=== PATIENT | male | born 1950 | race Hispanic/Latino ===

== ENCOUNTER 2016-10-06 12:54 | Emergency (ER) | payer MEDICARE ==
[2016-10-06 12:55] VITALS: BMI 25.5
[2016-10-06 13:02] VITALS: RESP 16
--- NOTE | 2016-10-06 13:43 | ED PDOC ---
HPI: Psych/Substance Abuse Time Seen by Provider: 10/06/16 13:33 Chief Complaint (Nursing): Substance Abuse Past Medical History Vital Signs: Last Vital Signs Temp 95.5 F L 10/06/16 12:58 Pulse 88 10/06/16 12:58 Resp 16 10/06/16 12:58 BP Pulse Ox 92 L 10/06/16 12:58 - Medical History PMH: Back Problems, Emphysema, Hyperlipidemia - Surgical History Surgical History: Cholecystectomy - Family History Family History: States: Unknown Family Hx - Home Medications Home Medications: Ambulatory Orders Medication Instructions Recorded Acetaminophen/Butalbital/Caf 1 tab PO Q6H PRN 09/01/15 [Fioricet] Cyclobenzaprine [Flexeril] 5 mg PO DAILY 09/01/15 Oxycodone HCl [Oxycontin] 60 mg PO HS 09/01/15 Oxycodone HCl [Oxycontin] 120 mg PO QAM 09/01/15 Oxycodone HCl/Acetaminophen 1 tab PO Q8H 09/01/15 [Endocet 7.5-325 mg Tablet] Pregabalin [Lyrica] 75 mg PO BID 09/01/15 - Allergies Allergies/Adverse Reactions: Allergies Allergy/AdvReac Type Severity Reaction Status Date / Time No Known Allergies Allergy Verified 09/01/15 13:06 - ECG O2 Sat by Pulse Oximetry: 92
--- NOTE | 2016-10-06 14:01 | ED PDOC ---
HPI: Psych/Substance Abuse Chief Complaint (Provider): opioid abuse ED Caveat: Other (A&O) History Per: Patient, Family History/Exam Limitations: no limitations Onset/Duration Of Symptoms: Hrs, Sudden Onset Current Symptoms Are (Timing): Gone Now Suicide/Self Injury Attempted (Context): None Modifying Factor(s): Narcotics Severity: Mild Associated Symptoms: denies: Anxiety, Agitation, Depression, Suicidal Thoughts, Suicidal Plan Involuntary Hold By: None Additional History Per: Patient, Additional Complaint(s): 66 y/o M with known h/o prescription drug abuse presenting s/p taking 3 tabs of Oxycontin 60 mg and 2 tabs of percocet 7.5 mg today[address] Patient sees Dr. Ellis for pain management due to chronic back pain, states getting his prescriptions refilled this AM and took above mentioned medication due to increased pain today. Patient had LOC, witnessed by son, no seizures, incontinence, head trauma reported, EMS was called and patient receivedn 4 mg narcan in the field. Mental status was A&O x 3 after narcan administration, brought to [facility] for evaluation. Currently A&O x 3, denies MEYER, syncop, vision changes, palpitations, cp, sob, abd pain, bowel incontinence, focal weakness or parasthesias. <Jose Paredes F - Last Filed: 10/06/16 16:57> <Titi Penn Y - Last Filed: 10/07/16 12:35> Time Seen by Provider: 10/06/16 13:00 Chief Complaint (Nursing): Substance Abuse Supervising Attending Note - Supervising Attending Note The Documented history was done by the: Physician Auto Seat Cover Installer The documented physical exam was done by the: Physician Auto Seat Cover Installer The documented procedures were done by the: Physician Auto Seat Cover Installer - Attestation: I have personally seen and examined this patient.: Yes I have fully participated in the care of the patient.: Yes I have reviewed all pertinent clinical information, including history, physical exam and plan: Yes - Notes: Notes:: pt here for accidntal overdose of pain medicine. labs reviewed cxr shows ?rib fractures new vs old however pt states has old fractures and no new pain or new falls pt alert and oriented while in the ER vital stable pt feels back to baseline to go home with posiion control contacted they said as long as stable during ER stay and labs ok pt stable for dc. <Titi Penn Y - Last Filed: 10/07/16 12:35> Past Medical History Vital Signs: Last Vital Signs Temp 95.5 F L 10/06/16 12:58 Pulse 88 10/06/16 12:58 Resp 16 10/06/16 12:58 BP Pulse Ox 92 L 10/06/16 12:58 - Medical History PMH: Back Problems, Emphysema, Hyperlipidemia - Surgical History Surgical History: Cholecystectomy - Family History Family History: States: Unknown Family Hx - Living Arrangements Living Arrangements: With Family - Social History Current smoker - smoking cessation education provided: Yes (2 PPD since age 26) <Jose Paredes F - Last Filed: 10/06/16 16:57> Vital Signs: Last Vital Signs Temp 97.9 F 10/06/16 17:25 Pulse 117 H 10/06/16 17:25 Resp 16 10/06/16 17:25 BP 108/68 10/06/16 17:25 Pulse Ox 99 10/06/16 17:25 <Titi Penn Y - Last Filed: 10/07/16 12:35> - Home Medications Home Medications: Ambulatory Orders Medication Instructions Recorded Acetaminophen/Butalbital/Caf 1 tab PO Q6H PRN 09/01/15 [Fioricet] Cyclobenzaprine [Flexeril] 5 mg PO DAILY 09/01/15 Oxycodone HCl [Oxycontin] 60 mg PO HS 09/01/15 Oxycodone HCl [Oxycontin] 120 mg PO QAM 09/01/15 Oxycodone HCl/Acetaminophen 1 tab PO Q8H 09/01/15 [Endocet 7.5-325 mg Tablet] Pregabalin [Lyrica] 75 mg PO BID 09/01/15 - Allergies Allergies/Adverse Reactions: Allergies Allergy/AdvReac Type Severity Reaction Status Date / Time No Known Allergies Allergy Verified 09/01/15 13:06 Review of Systems ROS Statement: Except As Marked, All Systems Reviewed And Found Negative Cardiovascular: Negative for: Chest Pain Gastrointestinal: Negative for: Nausea, Vomiting, Abdominal Pain Genitourinary Male: Negative for: Dysuria, Incontinence, Hematuria Skin: Negative for: Rash, Bruising Neurological: Negative for: Weakness, Numbness, Incoordination, Change in Speech , Confusion, Seizures, Altered Mental Status, Headache, Dizziness Psych: Negative for: Anxiety, Depression <StaciemarylinJose - Last Filed: 10/06/16 16:57> Physical Exam - Physical Exam Appears: Positive for: Non-toxic Head Exam: Positive for: ATRAUMATIC, NORMOCEPHALIC Skin: Positive for: Warm, Dry Eye Exam: Positive for: EOMI, PERRL ENT: Negative for: Nasal Congestion, Pharyngeal Erythema, Tonsillar Exudate Neck: Positive for: Painless ROM, Supple Respiratory: Negative for: Accessory Muscle Use, Crackles, Rales, Rhonchi, Respiratory Distress Gastrointestinal/Abdominal: Positive for: Soft. Negative for: Tenderness, Guarding Neurologic/Psych: Positive for: Alert, transmitter engineer II-XII, Oriented, Gait (normal ). Negative for: Motor/Sensory Deficits, Facial Droop <StaciemarylinMicaha Mehdi - Last Filed: 10/06/16 16:57> - Laboratory Results Result Diagrams: 10/06/16 14:39 10/06/16 14:39 - ECG O2 Sat by Pulse Oximetry: 92 - Progress ED Course And Treament: Opioid Abuse ECG CXR UA, CBC, CMP,coags, UDS, ETOH, salycilate, acetominophen levels reassess <StaciemarylinJose - Last Filed: 10/06/16 16:57> - Laboratory Results Result Diagrams: 10/06/16 14:39 10/06/16 14:39 <Titi Penn Y - Last Filed: 10/07/16 12:35> Disposition - Patient ED Disposition Is Patient to be Admitted: No - Disposition Disposition: Routine/Home Disposition Time: 16:58 <StacieMicah coulterisabelle Harding - Last Filed: 10/06/16 16:57> - Patient ED Disposition Is Patient to be Admitted: No Counseled Patient/Family Regarding: Studies Performed, Diagnosis, Need For Followup - Disposition Disposition: Routine/Home Disposition Time: 16:00 <Titi Penn - Last Filed: 10/07/16 12:35> - Clinical Impression Clinical Impression: Opiate abuse, episodic - Disposition Condition: GOOD Additional Instructions: follow up with your pain management doctor. take your pain medication exactly as prescribed. return to the ED with any worsening or concerning symptoms. Instructions: Chronic Pain (ED)
--- NOTE | 2016-10-06 14:46 | RAD ---
HISTORY: cough, 2 ppd smoker COMPARISON: Chest x-ray performed 09/01/15 TECHNIQUE: Chest PA and lateral FINDINGS: LUNGS: Hyperinflation may be seen in the setting of COPD. No focal consolidation. Please note that chest x-ray has limited sensitivity for the detection of pulmonary masses. PLEURA: No significant pleural effusion identified. No definite pneumothorax . CARDIOVASCULAR: The cardiomediastinal silhouette appears within normal limits of size. OSSEOUS STRUCTURES: Right 8th and 9th rib fracture deformities. VISUALIZED UPPER ABDOMEN: Unremarkable. OTHER FINDINGS: None. IMPRESSION: Hyperinflation may be seen in the setting of COPD. Age indeterminate right 8th and 9th rib fracture deformities new since 09/01/15 ; correlate with physical exam to exclude point tenderness.
[2016-10-06 14:53] LABS: HEMATOCRIT 40.5 % (35.0-51.0); MEAN CELL VOLUME 92.3 fl (80.0-94.0); MEAN CORPUSCULAR HEMOGLOBIN 31.1 pg (27.0-31.0); MEAN CORPUSCULAR HGB CONC 33.7 g/dL (33.0-37.0); RED CELL DISTRIBUTION WIDTH 14.4 % (11.5-14.5); WHITE BLOOD COUNT 10.2 K/uL (4.8-10.8)
[2016-10-06 15:08] LABS: CHLORIDE 108 mmol/L (98-107); SODIUM 144 mmol/l (132-148)
[2016-10-06 15:11] LABS: ALB/GLOB RATIO 1.5 (1.0-2.1); ALKALINE PHOSPHATASE 76 U/L (38-126); AST/SGOT 18 U/L (17-59); BILIRUBIN,TOTAL 0.4 mg/dl (0.2-1.3); BLOOD UREA NITROGEN 14 mg/dl (9-20); CARBON DIOXIDE 24 mmol/L (22-30); GFR AFRICAN-AMERICAN > 60; TOTAL PROTEIN 7.1 G/DL (6.3-8.2)
[2016-10-06 15:12] LABS: ALT/SGPT 23 U/L (21-72); CALCIUM 8.9 mg/dL (8.4-10.2); GLUCOSE,RANDOM 76 mg/dL (75-110)
[2016-10-06 16:29] LABS: RBC URINE 6 /hpf (0-3); URINE BILIRUBIN NEGATIVE (NEGATIVE); URINE BLOOD NEGATIVE (NEGATIVE); URINE COLOR YELLOW (YELLOW); URINE GLUCOSE (UA) NEG (Normal); URINE KETONE NEGATIVE (NEGATIVE); URINE LEUKOCYTE ESTERASE NEG Leu/uL (Negative); URINE PROTEIN 30 mg/dL (NEGATIVE); URINE UROBILINOGEN 0.2-1.0 mg/dL (0.2-1.0); WBC URINE 3 /hpf (0-5)
[2016-10-06 16:33] LABS: PARTIAL THROMBOPLASTIN TIME 27.5 SECONDS (23.3-32.5)
[2016-10-06 17:25] VITALS: BP 108/68; PULSE 117; TEMP 97.9; O2SAT 99
== END 2016-10-06 17:31 | disposition home or self-care (01) ==
LOC: H.ER 12:54
DX: F11.10 Opioid abuse, uncomplicated (principal)
CPT/HCPCS: 71020; 80053; 81003; 85027; 85610; 85730; 99283; G0480

== ENCOUNTER 2017-01-07 20:58 | Inpatient (IN) | payer MEDICARE ==
[2017-01-07 21:07] VITALS: BMI 21.5
--- NOTE | 2017-01-07 21:15 | ED PDOC ---
HPI:STROKE - Time Time: 09:14 - Historian Historian: Family - Chief Complaint Chief Complaint: Slurred speech, Mental status change, Confusion - Onset Date: 01/07/17 Time: 16:00 Onset: Hours (5) - Timing Timing: Improved - Location Locate right:: Face, Upper extremity, Lower extremity - Radiation Radiation: None - Severity of pain Maximum severity:: Moderate Severity Current: Mild - Associated Symptoms Associated symptoms:: Seizure - Exacerbated by Exacerbated by:: Nothing - Relieved by Relieved by:: Nothing - TPA Positive for Contraindication: Yes Reason tPA is not being Administered: seizure activity and onset is out of window for TPA. - Notes: Notes:: Pt BIBA for possible stroke this afternoon. Per family pt was doing well all day. Pt took his pain medications including percocet, oxycontin and flexeril. HE was last seen normal around 1600 today. witnessed episode when he had right sided seizure and fell on the floor uncoscious and later was incogruent. Pt is unable to give history due to confusion. Pt has chronic back pain and take pain medications given by pain management Dr Ellis. NIHSS Stroke Scale - Date/Time Evaluation Performed Date Performed: 01/07/17 Time Performed: 09:15 When Was NIHSS Performed: Baseline - How Severe is the Stroke Level of Consciousness: 0=Alert LOC to Questions: 2=Neither correct LOC to commands: 0=Obeys both correctly Best Gaze: 0=Normal Visual: 0=No visual loss Facial: 0=Normal Motor Arm - Left: 0=No drift Motor Arm - Right: 0=No drift Motor Leg - Left: 0=No drift Motor Leg - Right: 0=No drift Limb Ataxia: 0=Absent Sensory: 0=Normal Best Language: 1=Mild to moderate aphasia Dysarthia: 0=Normal articulation Extinction & Inattention (Neglect): 0=Normal, no object Score: 3 rTPA Inclusion/Exclusion - Refusal of Treatment Patient Refused Treatment: No - Inclusion Criteria for Altepase Patient is 18 years or Older: Yes The Clinical Diagnosis of Ischemic Stroke That is Causing a Potentially Disabling Neurological Deficit: No Time of Onset is Well Established to be Less Than 270 Minute Before Treatment Would Begin: No Risk/Benefit Discussed With Patient/Family Member Present: No - Warning to TPA With Conditions Following Conditions Weighed Against Anticipated Benefit: Yes Condition: Seizure at Onset of Stroke Past Medical History Reviewed: Historical Data, Nursing Documentation, Vital Signs - Medical History PMH: Back Problems, Emphysema, Hyperlipidemia - Surgical History Surgical History: Cholecystectomy - Family History Family History: States: Unknown Family Hx - Home Medications Home Medications: Ambulatory Orders Medication Instructions Recorded Cyclobenzaprine [Flexeril] 5 mg PO DAILY 09/01/15 Oxycodone HCl/Acetaminophen 1 tab PO Q8H 09/01/15 [Endocet 7.5-325 mg Tablet] - Allergies Allergies/Adverse Reactions: Allergies Allergy/AdvReac Type Severity Reaction Status Date / Time No Known Allergies Allergy Verified 01/07/17 21:07 Review of Systems ROS Statement: Except As Marked, All Systems Reviewed And Found Negative Neurological: Positive for: Confusion, Seizures Physical Exam - Reviewed Nursing Documentation Reviewed: Yes Vital Signs Reviewed: Yes - Physical Exam Appears: Positive for: Non-toxic, No Acute Distress Head Exam: Positive for: ATRAUMATIC, NORMAL INSPECTION Skin: Positive for: Warm, Dry Eye Exam: Positive for: EOMI, PERRL Neck: Positive for: Normal Cardiovascular/Chest: Positive for: Regular Rate, Rhythm, Tachycardia Respiratory: Positive for: Normal Breath Sounds. Negative for: Rales, Wheezing , Respiratory Distress Gastrointestinal/Abdominal: Positive for: Soft. Negative for: Tenderness Extremity: Positive for: Normal ROM Neurologic/Psych: Positive for: Alert, dukey rider II-XII (intact), Oriented (x2), Aphasia (mild). Negative for: Motor/Sensory Deficits, Facial Droop - Laboratory Results Result Diagrams: 01/07/17 21:55 01/07/17 21:55 - Core Measure Core Measure Indicators: Code Stroke - Critical Care Total Time (In Min): 60 Medical Decision Making Medical Decision Makin.32 pm EXAM: CT Head Without Intravenous Contrast CLINICAL HISTORY: 66 years old, male; Signs and symptoms; Other: Code stroke TECHNIQUE: Axial computed tomography images of the head/brain without intravenous contrast. This CT exam was performed using one or more of the following dose reduction techniques: automated exposure control, adjustment of the mA and/or kV according to patient size, and/or use of iterative reconstruction technique. Coronal and sagittal reformatted images were created and reviewed. COMPARISON: CT - HEAD W/O CONTRAST 09/01/2015 2:34:43 PM FINDINGS: Brain: Minimal atrophy. No intracranial hemorrhage. No mass. No definite edema. Ventricles: No hydrocephalus. Bones/joints: No acute fracture. Soft tissues: Unremarkable. Sinuses: No acute sinusitis. Mastoid air cells: No mastoid effusion. Orbits: Unremarkable as visualized. IMPRESSION: 1. No definite territorial infarction. Acute infarction may be CT occult within first 24 hours. If focal deficit persists, consider followup CT or MRI for further evaluation. 2. Incidental/non-acute findings are described above. Thank you for allowing us to participate in the care of your patient. Dictated and Authenticated by: Kimo Ayers MD 01/07/2017 9:32 PM Eastern Time ([place] & [place]) 21.[address] Li thinks it is likely seizure and last was seen normal 5 hours ago therefore patient is not a TPA candidate. Recommends ativan and MRI. Per patients PCP is Dr Aly. Disposition - Clinical Impression Clinical Impression: Seizure, Altered mental state, Stroke - Patient ED Disposition Is Patient to be Admitted: Yes Discussed With DrMindy: Ernesto Velasco Doctor Will See Patient In The: Hospital Counseled Patient/Family Regarding: Studies Performed, Diagnosis - Disposition Disposition: Routine/Home Disposition Time: 23:32 Condition: GOOD - Pt Status Changed To: Hospital Disposition Of: Inpatient - Admit Certification Admit to Inpatient:: After my assessment, the patient will require hospitalization for at least two midnights. This is because of the severity of symptoms shown, intensity of services needed, and/or the medical risk in this patient being treated as an outpatient. - POA Present On Arrival: None Core Measure Indicators: Code Stroke
--- NOTE | 2017-01-07 21:32 | CT ---
EXAM: CT Head Without Intravenous Contrast CLINICAL HISTORY: 66 years old, male; Signs and symptoms; Other: Code stroke TECHNIQUE: Axial computed tomography images of the head/brain without intravenous contrast. This CT exam was performed using one or more of the following dose reduction techniques: automated exposure control, adjustment of the mA and/or kV according to patient size, and/or use of iterative reconstruction technique. Coronal and sagittal reformatted images were created and reviewed. COMPARISON: CT - HEAD W/O CONTRAST 09/01/2015 2:34:43 PM FINDINGS: Brain: Minimal atrophy. No intracranial hemorrhage. No mass. No definite edema. Ventricles: No hydrocephalus. Bones/joints: No acute fracture. Soft tissues: Unremarkable. Sinuses: No acute sinusitis. Mastoid air cells: No mastoid effusion. Orbits: Unremarkable as visualized. IMPRESSION: 1. No definite territorial infarction. Acute infarction may be CT occult within first 24 hours. If focal deficit persists, consider followup CT or MRI for further evaluation. 2. Incidental/non-acute findings are described above.
[2017-01-07 22:12] LABS: ALB/GLOB RATIO 1.6 (1.0-2.1); ALBUMIN 4.6 g/dL (3.5-5.0); ALT/SGPT 34 U/L (21-72); AST/SGOT 18 U/L (17-59); BLOOD UREA NITROGEN 16 mg/dl (9-20); CALCIUM 10.1 mg/dL (8.4-10.2); GFR AFRICAN-AMERICAN > 60; GFR NON-AFRICAN AMERICAN > 60; HDL CHOLESTEROL 45 MG/DL (30-70)
[2017-01-07 22:22] LABS: LDL CHOLESTEROL 134 mg/dL (0-129)
[2017-01-07 22:24] LABS: BASO # 0.1 K/uL (0.0-0.2); BASO % 0.9 % (0.0-2.0); EOS % 0.2 % (0.0-4.0); LYMPH # 2.2 K/uL (1.0-4.3); LYMPH % 21.9 % (20.0-40.0); MEAN CORPUSCULAR HEMOGLOBIN 31.2 pg (27.0-31.0); MEAN CORPUSCULAR HGB CONC 34.3 g/dL (33.0-37.0); MEAN PLATELET VOLUME 8.5 fl (7.2-11.7); MONO # 0.8 K/uL (0.0-0.8); MONO % 8.1 % (0.0-10.0); NEUT # 6.9 K/uL (1.8-7.0); NEUT % 68.9 % (50.0-75.0); NRBC % 0.2 % (0.0-0.0); RBC 5.13 Mil/uL (4.40-5.90); RED CELL DISTRIBUTION WIDTH 14.2 % (11.5-14.5)
[2017-01-07 22:29] LABS: INR 1.3 (0.9-1.2); PARTIAL THROMBOPLASTIN TIME 31.4 Seconds (25.6-37.1); PROTHROMBIN TIME 14.3 Seconds (9.8-13.1)
[2017-01-07] MEDS ORDERED: Multivitamin (MVI) 10 ML, Folic Acid 1 MG, Thiamine 100 MG in Dextrose 5%/0.45% NS 1,00... IV ONE (23:21)
[2017-01-07] MEDS ORDERED: Sodium Chloride 0.9% 1,000 ML IV STA (23:55)
[2017-01-08 02:16] LABS: BARBITURATES, UR NEGATIVE (NEGATIVE)
[2017-01-08 02:17] LABS: BENZODIAZEPINES, UR NEGATIVE (NEGATIVE); OPIATES, UR NEGATIVE (NEGATIVE); PHENCYCLIDINE, UR NEGATIVE (NEGATIVE)
[2017-01-08] MEDS ORDERED: Oxycodone/Acetaminophen 5/325 mg Tab PO PRN (10:28)
[2017-01-08] MEDS ORDERED: OXYCODONE HCL PO SCH (10:30)
[2017-01-08] MEDS ORDERED: ACETAMINOPHEN PO SCH (10:30)
--- NOTE | 2017-01-08 13:03 | CP.PCM.CON ---
History of Present Illness - History of Present Illness History of Present Illness: Mr. Cardozo is a 66-year-old man with a prior history of drug abuse and on several opiates and muscle relaxants who was witnessed having a seizure with subsequent confusion and some focal weakness. Now he is back to baseline and does not have any facial droop, focal weakness, sensory changes or difficulty with ambulation. He does not full remember what transpired, but he is compliant with the exam and conversant with normal orientation. Review of Systems - Review of Systems All systems: reviewed and no additional remarkable complaints except Past Patient History - Past Medical History & Family History Past Medical History?: Yes - Past Social History Smoking Status: Heavy Smoker > 10 Cigarettes Daily - PULMONARY Hx Emphysema: Yes - MUSCULOSKELETAL/RHEUMATOLOGICAL Hx Falls: No - PSYCHIATRIC Hx Substance Use: Yes - SURGICAL HISTORY Hx Cholecystectomy: Yes - ANESTHESIA Hx Anesthesia: Yes Hx Anesthesia Reactions: No Meds Allergies/Adverse Reactions: Allergies Allergy/AdvReac Type Severity Reaction Status Date / Time No Known Allergies Allergy Verified 01/07/17 21:07 - Medications Medications: Current Medications Cyclobenzaprine HCl (Flexeril) 5 mg PO DAILY [facility] Last Admin: 01/08/17 12:32 Dose: 5 mg Enoxaparin Sodium (Lovenox) 40 mg SC DAILY [facility] PRN Reason: Protocol Lorazepam (Ativan) 0.5 mg IVP Q6 PRN PRN Reason: Agitation Nicotine (Nicoderm Cq) 1 patch TD DAILY [facility] Last Admin: 01/08/17 08:20 Dose: 1 patch Oxycodone/Acetaminophen (Percocet 5/325 Mg Tab) 1 tab PO Q6 PRN PRN Reason: Pain, severe (8-10) Stop: 01/11/17 10:29 Physical Exam - Constitutional Appears: Well - Head Exam Head Exam: ATRAUMATIC, NORMAL INSPECTION, NORMOCEPHALIC - Eye Exam Eye Exam: EOMI, Normal appearance, PERRL - ENT Exam ENT Exam: Mucous Membranes Moist, Normal Exam - Neck Exam Neck exam: Positive for: Normal Inspection - Respiratory Exam Respiratory Exam: Clear to Auscultation Bilateral, NORMAL BREATHING PATTERN - Cardiovascular Exam Cardiovascular Exam: REGULAR RHYTHM, +S1, +S2 - GI/Abdominal Exam GI & Abdominal Exam: Normal Bowel Sounds, Soft. absent: Tenderness - Rectal Exam Rectal Exam: Deferred - Extremities Exam Extremities exam: Positive for: normal inspection - Back Exam Back exam: CVA tenderness (L) - Neurological Exam Neurological exam: Alert, CN II-XII Intact, Normal Gait, Oriented x3, Reflexes Normal - Expanded Neurological Exam Expanded Patient oriented to: person, place, time Cranial nerves: EOM's Intact: Normal, Facial Sensation: Normal Ataxia: No Cerebellar Function: Finger to Nose: Normal, Heel to Teran: Normal Upper motor neuron: Babinski Sign: Normal Sensory exam: Lower Extremity Light Touch: Normal, Lower Extremity Pin Prick: Normal, Upper Extremity Light Touch: Normal, Upper Extremity Pin Prick: Normal Neuro motor strength exam: Left Upper Extremity: 5, Right Upper Extremity: 5, Left Lower Extremity: 5, Right Lower Extremity: 5 DTR: Achilles Tendon Left: 2+, Achilles Tendon Right: 2+, Bicep Left: 2+, Bicep Right: 2+, Brachioradialis Left: 2+, Brachioradialis Right: 2+, Patellar Left: 2 +, Patellar Right: 2+, Tricep Left: 2+, Tricep Right: 2+ - Psychiatric Exam Psychiatric exam: Normal Affect, Normal Mood - Skin Skin Exam: Dry, Intact, Normal Color, Warm Results - Vital Signs Recent Vital Signs: Last Vital Signs Temp 98.5 F 01/08/17 08:29 Pulse 89 01/08/17 09:00 Resp 18 01/08/17 08:29 BP 138/86 01/08/17 08:29 Pulse Ox 95 01/08/17 08:29 - Labs Result Diagrams: 01/07/17 21:55 01/07/17 21:55 Labs: Laboratory Results - last 24 hr 01/07/17 01/08/17 22:59 01:17 Urine Opiates Screen Negative Urine Methadone Screen Negative Ur Barbiturates Screen Negative Ur Phencyclidine Scrn Negative Ur Amphetamines Screen Positive H U Benzodiazepines Scrn Negative U Oth Cocaine Metabols Negative U Cannabinoids Screen Negative Alcohol, Quantitative < 10 - Imaging and Cardiology CT scan - head Status: Image reviewed by me, Report reviewed by me (No acute findings) Assessment & Plan (1) Seizure Assessment and Plan: Likely drug-induced with amphetamine on urine toxicology. Recommend continuing CIWA protocol and giving ativan 0.5 Q12 PRN. May get MRI of the brain as outpatient. PT/OT eval and treat. Psych consult and case management consult. No AED is recommended at this time since the seizure is thought to be drug- induced and once the culprit is out of his system, he should not have further seizures. Thank you. Status: Acute Priority: Medium
[2017-01-08] MEDS: Enoxaparin 40 mg Syringe SC SCH (14:00)
--- NOTE | 2017-01-08 20:25 | CARD ---
APPROVED REPORT EKG Measurement Heart [id number] <Conclusion> Sinus tachycardia Otherwise normal ECG
--- NOTE | 2017-01-08 22:30 | PCM.PSYCH ---
Initial Psychiatric Evaluation - Initial Psychiatric Evaluation Chief Complaint (in patient's own words): pt was seen for a consult on 4n rm 404 1, consult was called for reported agitation. pt has been maintained on for safety by pmd. pt was verbally agreeable to meet with this junior technical writer. Patient's Reaction to Hospitalization: pt was admitted to 4n via emergency room [facility] 2nd to seizure related to ingestion of prescribed pain medications and amphetamines (via utox per neurologist consult on chart). pt was reportedly at home, had witnessed seizure by family and ems was subsequently called. pt reports that had taken medications as they were prescribed but had "not eating for 2 days so that is why I think I had a seizure". Pt reports had similar seizure approx. 4 years ago but does not recall details at this time. pt is receiving pain medications prescribed by dr gutierrez per pt. history 2nd to various reported "herniated discs " as well as receiving "lyrica because I am getting burring and tingling in my feet I might have the beginning of diabetes". reports taking medications as prescribed. when queried as to the presence of amphetamines in urine pt denies any and all use of amphetamines-reports has not "used amphetamines since my early 20's". When queried to how his urine may have tested positive for amphetamines "I have no idea". Pt. denies taking the medications of others. admits that earlier agitation was related to wanting to go home because he did not understand why he needed to be in the hospital. admittedly he later spoke to his who "helped him understand why he needed to be in the hospital". Pt denies have a personality of one in which he is aggressive, reports being an "easy going person". denies any desire to harmself or others at this time. denies taking any medications in the home to harm himself. denies any past or current suicidal ideations. History of Present Illness and Precipitating Events: see above Current Medications: Active Medications Generic Name Dose Route Start Last Admin Trade Name Freq PRN Reason Stop Dose Admin Cyclobenzaprine HCl 5 mg 01/08/17 10:30 01/08/17 12:32 Flexeril PO 5 mg DAILY LAUREN Administration Enoxaparin Sodium 40 mg 01/08/17 12:45 01/08/17 14:00 Lovenox SC 40 mg DAILY LAUREN Administration Protocol Lorazepam 0.5 mg 01/08/17 06:34 Ativan IVP Q6 PRN Agitation Nicotine 1 patch 01/08/17 09:00 01/08/17 08:20 Nicoderm Cq TD 1 patch DAILY LAUREN Administration Oxycodone/Acetaminophen 1 tab 01/08/17 10:28 Percocet 5/325 Mg Tab PO 01/11/17 10:29 Q6 PRN Pain, severe (8-10) Past Psychiatric History - Past Psychiatric History Prior Professional Help: DENIES ANY PSYCHIATRIC TREATMENT History of ETOH/Drug Use: Currently drinks "one to two cans of beer a month". Denies having any drinking problems. A negative cage was illicited. Reports taking amphetamines early twenties "to experiment". Denies having had any issues related to dependence. Denies any legal related issues related to substance use. History of Family Illness: Reports one son who is an adult who lives in a [facility]. Pertinent Medical Hx (Current Medical&Sleep Prob, Allergies): Allergies Allergy/AdvReac Type Severity Reaction Status Date / Time No Known Allergies Allergy Verified 01/07/17 21:07 Cyclobenzaprine [Flexeril] 5 mg PO DAILY 09/01/15 Oxycodone HCl/Acetaminophen [Endocet 7.5-325 mg Tablet] 1 tab PO Q8H 09/01/15 Review of Systems - Psychiatric Psychiatric: As Per HPI, UNREMARKABLE Mental Status Examination - Personal Presentation Personal Presentation: Looks younger than stated age - Affect Affect: Broad - Motor Activity Motor Activity: Calm - Reliability in Providing Information Reliability in Providing Information: Fair - Speech Speech: Organized - Mood Additional comments: denies any and all mood symptoms - Formal Thought Process Additional comments: denies any and all psychotic symptoms - Hallucinations/Delusions Additional comments: denies - Obsessions/Compulsions Obsessions: No Compulsions: No - Cognitive Functions Orientation: Person, Place, Situation, Time Sensorium: Alert Attention/Concentration: Attentive (insight and judgement are questionable related to positive urine tox for amphetamines and denial of any use of amphetamines currently) DSM 5 DX - DSM 5 DSM 5 Diagnosis: Acute stress/acute agitation ?resolving Seizure episode urine tox positive for amphetamines with denial of amphetamine use substance use: etoh active, ?amphetamine use Chronic pain: receiving multiple opiates (long and short acting) along with lyrica - Recommended/Plan of Treatment Treatment Recommendations and Plan of Treatment: pt will continue to followed by primary care team and relevant consultants as ordered by pmd pt denies any amphetamine use although urine tox is positive-pt defers having any issues related to said substance use defers any need for referral to treatment ie [email or web address] pt requested of this junior technical writer if he could go home in am-was clearly informed that although this junior technical writer does find any psychiatric reason to admit patient at this time nor does patient appear to meet screening criteria this junior technical writer cannot and would not speak of being medically cleared and that primary treatment team for advise pt of their recommendations in am + teachback was noted. junior technical writer did review with that in the event any substances were being used that primary treatment team were not aware would endanger the patient's health including possible further seizures up until including possible recommend to primary treatment team that pt be provided with name and address of [email or web address] for future reference if indeed pt identified a potential benefit from a substance use program Please feel free to contact the department of psychiatry/behavioral health if we can be of any further assistance. Thank you for allowing us to be part of the patient's care. Respectfully yours, Efren Denis, PhDc, LOGGING EQUIPMENT OPERATOR Projected ELOS: depends on underlying medical status as determined by pmd
[2017-01-09] MEDS: Enoxaparin 40 mg Syringe SC SCH (09:06)
--- NOTE | 2017-01-09 10:16 | CP.PCM.HP ---
History of Present Illness - History of Present Illness History of Present Illness: This is a 66 y/o male admitted for change in mental status and post ictal state after apparently a witnessed seizure. He was doing well and had taken his pain meds and flexeril and later on witnessed by to have tonic clonic seizure then fell and lost consciousness. he was brought to ER where he was noted to be incoherent, confused and not oriented. There was no facial palsy or muscle or extremity weakness. He has a hx of chronic back pain and currently on Percocet, oxycontin and flexeril Present on Admission - Present on Admission Any Indicators Present on Admission: No History of DVT/PE: No History of Uncontrolled Diabetes: No Urinary Catheter: No Decubitus Ulcer Present: No Review of Systems - Musculoskeletal Musculoskeletal: Back Pain, Myalgias Past Patient History - Past Medical History & Family History Past Medical History?: Yes - Past Social History Smoking Status: Heavy Smoker > 10 Cigarettes Daily - PULMONARY Hx Emphysema: Yes - MUSCULOSKELETAL/RHEUMATOLOGICAL Hx Falls: No - PSYCHIATRIC Hx Substance Use: Yes - SURGICAL HISTORY Hx Cholecystectomy: Yes - ANESTHESIA Hx Anesthesia: Yes Hx Anesthesia Reactions: No Meds Allergies/Adverse Reactions: Allergies Allergy/AdvReac Type Severity Reaction Status Date / Time No Known Allergies Allergy Verified 01/07/17 21:07 Physical Exam - Head Exam Head Exam: NORMAL INSPECTION - Eye Exam Eye Exam: Normal appearance - ENT Exam ENT Exam: Mucous Membranes Moist - Neck Exam Neck exam: Positive for: Normal Inspection - Respiratory Exam Respiratory Exam: Clear to Auscultation Bilateral - Cardiovascular Exam Cardiovascular Exam: REGULAR RHYTHM - GI/Abdominal Exam GI & Abdominal Exam: Normal Bowel Sounds - Neurological Exam Neurological exam: Altered, CN II-XII Intact Additional comments: still with episodes of confusion( ie claims that he was watching a basketball game earlier 2 hrs prior to my examination) Results - Vital Signs Recent Vital Signs: Last Vital Signs Temp 97.8 F 01/09/17 08:06 Pulse 81 01/09/17 08:06 Resp 20 01/09/17 08:06 BP 151/93 H 01/09/17 08:06 Pulse Ox 95 01/09/17 08:06 - Labs Result Diagrams: 01/07/17 21:55 01/07/17 21:55 Assessment & Plan (1) Altered mental state Status: Acute (2) Seizure Status: Acute Priority: Medium (3) Chronic back pain Status: Acute (4) Opiate abuse, episodic Status: Acute - Assessment and Plan (Free Text) Plan: Keep pain meds prn Neurology eval EEG telemetry Psych eval [facility]uro[facility]
--- NOTE | 2017-01-09 23:55 | CP.PCM.PN ---
Subjective - Date & Time of Evaluation Date of Evaluation: 01/09/17 Time of Evaluation: 19:45 - Subjective Subjective: patient has less confusion. Objective - Vital Signs/Intake and Output Vital Signs (last 24 hours): Temp Pulse Resp BP Pulse Ox 97.4 F L 68 20 115/61 100 01/09/17 20:18 01/09/17 20:18 01/09/17 20:18 01/09/17 20:18 01/09/17 20:18 - Medications Medications: Current Medications Cyclobenzaprine HCl (Flexeril) 5 mg PO DAILY [facility] Last Admin: 01/09/17 09:06 Dose: 5 mg Enoxaparin Sodium (Lovenox) 40 mg SC DAILY LAUREN PRN Reason: Protocol Last Admin: 01/09/17 09:06 Dose: 40 mg Lorazepam (Ativan) 0.5 mg IVP Q6 PRN PRN Reason: Agitation Last Admin: 01/09/17 18:23 Dose: 0.5 mg Nicotine (Nicoderm Cq) 1 patch TD DAILY [facility] Last Admin: 01/09/17 09:06 Dose: 1 patch Oxycodone/Acetaminophen (Percocet 5/325 Mg Tab) 1 tab PO Q6 PRN PRN Reason: Pain, severe (8-10) Stop: 01/11/17 10:29 - Labs Labs: PT 14.3 Seconds (9.8-13.1) H 01/07/17 21:55 INR 1.3 (0.9-1.2) H 01/07/17 21:55 APTT 31.4 Seconds (25.6-37.1) 01/07/17 21:55 Assessment and Plan (1) Altered mental state Status: Acute (2) Seizure Status: Acute (3) Chronic back pain Status: Acute (4) Opiate abuse, episodic Status: Acute
[2017-01-10 00:27] VITALS: RESP 18
[2017-01-10 08:14] VITALS: BP 147/83; TEMP 97.8; O2SAT 91
[2017-01-10] MEDS: Enoxaparin 40 mg Syringe SC SCH (08:30)
[2017-01-10 11:06] VITALS: PULSE 72
--- NOTE | 2017-01-10 11:43 | PQF GENQUE ---
Dr. Velasco, Please clarify the underlying cause of patient's altered mental status and relate that cause to the alteration in mental status: Cardiac condition Electrolyte/metabolic imbalance Infectious process Neurologic condition Psychiatric condition Respiratory condition Other condition (please specify) Clinically unable to determine Unknown ER: Clinical Impression: Seizure, Altered mental state, Stroke Neuro note: prior hx. of drug abuse and on several opiates and muscle relaxants who was witnessed having a seizure with subsequent confusion and some focal weakness. Now he is back to baseline and does not have any facial droop, focal weakness, sensory changes or difficulty with ambulation. He does not full remember what transpired, but he is compliant with the exam and conversant with normal orientation. Assessment (1) Seizure Likely drug-induced with amphetamine on urine toxicology. Recommend continuing CIWA protocoland giving ativan 0.5 Q12 PRN. May get MRI of the brain as outpatient. PT/OT eval and treat. Psych consult and case management consult. No AED is recommended at this time since the seizure is thought to be drug-induced and once the culprit is out of his system, he should not have further seizures. Status: Acute Priority: Medium Psych note: Acute stress/acute agitation ?resolving Seizure episode urine tox positive for amphetamines with denial of amphetamine use substance use: etoh active, ?amphetamine use Chronic pain: receiving multiple opiates (long and short acting) along with lyrica H and P and progress note :01/09: Assessment Plan : (1) Altered mental state Status: Acute (2) Seizure Status: Acute Priority: Medium (3) Chronic back pain Status: Acute (4) Opiate abuse, episodic Status: Acute Ativan IV This form is a permanent part of the medical record Clarification of your documentation is requested to better reflect the severity of illness and intensity of treatment of your patient. Indicators present [] Specify: [] [] Specify: [] [] Specify: [] [] Specify: [] Location in the medical record that reflects the above clinical findings: [] Treatment Provided: [] PHYSICIAN'S RESPONSE Based on your medical judgment of the clinical indicators outlined above please clarify the following: [] Practitioner response [] If unable to determine, please check the box, sign and date. Present On Admission (POA) Indicator: [] Present at the time of admission [] Not present at the time of admission [] Clinically Undetermined In responding to this query, please exercise your independent professional judgment. The fact that a question is asked does not imply that any particular answer is desired or expected. Thank you for your clarification on this documentation. If you have any questions please call. * Thank you, Jayda Cline RN BSN ext. #[phone] MTDD
--- NOTE | 2017-01-10 11:49 | PQF GENQUE ---
Dr. Velasco, Stroke ruled in or Stroke ruled out? OR:Other explanation of clinical finding Diagnosis of Stroke is listed by the ERMD and then the diagnosis is dropped Neuro note: Neuro prior hx. of drug abuse and on several opiates and muscle relaxants who was witnessed having a seizure with subsequent confusion and some focal weakness. Now he is back to baseline and does not have any facial droop, focal weakness, sensory changes or difficulty with ambulation. He does not full remember what transpired, but he is compliant with the exam and conversant with normal orientation. Assessment (1) Seizure Likely drug-induced with amphetamine on urine toxicology. Recommend continuing CIWA protocoland giving ativan 0.5 Q12 PRN. May get MRI of the brain as outpatient. PT/OT eval and treat. Psych consult and case management consult. No AED is recommended at this time since the seizure is thought to be drug-induced and once the culprit is out of his system, he should not have further seizures. Status: Acute Priority: Medium H and P and progress note: 01/09: Assessment Plan : (1) Altered mental state Status: Acute (2) Seizure Status: Acute Priority: Medium (3) Chronic back pain Status: Acute (4) Opiate abuse, episodic Status: Acute CT Head: Impression: 1. No definite territorial infarction. Acute infarction may be CT occult within first 24 hours. If focal deficit persists, consider followup CT or MRI for further evaluation. 2. Incidental/non-acute findings are described above. This form is a permanent part of the medical record Clarification of your documentation is requested to better reflect the severity of illness and intensity of treatment of your patient. Indicators present [] Specify: [] [] Specify: [] [] Specify: [] [] Specify: [] Location in the medical record that reflects the above clinical findings: [] Treatment Provided: [] PHYSICIAN'S RESPONSE Based on your medical judgment of the clinical indicators outlined above please clarify the following: [] Practitioner response [] If unable to determine, please check the box, sign and date. Present On Admission (POA) Indicator: [] Present at the time of admission [] Not present at the time of admission [] Clinically Undetermined In responding to this query, please exercise your independent professional judgment. The fact that a question is asked does not imply that any particular answer is desired or expected. Thank you for your clarification on this documentation. If you have any questions please call. * Thank you, Jayda Cline RN BSN ext. #[phone] MTDD
--- NOTE | 2017-01-10 13:31 | CP.PCM.PCO ---
Physician Communication Note - Physician Communication Note Physician Communication Note: As per , pt. does not have Dx of CVA
[2017-01-10 21:38] LABS: PROLACTIN 41.9 ng/mL (3.7-17.9)
--- NOTE | 2017-01-11 12:44 | PQF GENQUE ---
Dr. Velasco consultation dated 01/08 documented "seizure likely drug induced." Do you agree with this diagnosis? If not please clarify if known cause of pt's seizure. This form is a permanent part of the medical record Clarification of your documentation is requested to better reflect the severity of illness and intensity of treatment of your patient. Indicators present [] Specify: [] [] Specify: [] [] Specify: [] [] Specify: [] Location in the medical record that reflects the above clinical findings: [] Treatment Provided: [] PHYSICIAN'S RESPONSE Based on your medical judgment of the clinical indicators outlined above please clarify the following: [] Practitioner response [] If unable to determine, please check the box, sign and date. Present On Admission (POA) Indicator: [] Present at the time of admission [] Not present at the time of admission [] Clinically Undetermined In responding to this query, please exercise your independent professional judgment. The fact that a question is asked does not imply that any particular answer is desired or expected. Thank you for your clarification on this documentation. If you have any questions please call:[ ] * Thank you, [ ]Crissy Harvey service center supervisor BR[facility]GET
== END 2017-01-10 12:02 | disposition home or self-care (01) | DRG 918 ==
LOC: H.ER 20:58 → H.ERHOLD 22:41 → H.TEL 01-08 01:04
PROVIDERS: ADMIT Family Medicine; ATTEND Family Medicine
DX: T43.621A Poisoning by amphetamines, accidental (unintentional), initial encounter (principal); R56.9 Unspecified convulsions; J43.9 Emphysema, unspecified; Y92.9 Unspecified place or not applicable; F11.10 Opioid abuse, uncomplicated; G89.29 Other chronic pain; E78.5 Hyperlipidemia, unspecified; F17.210 Nicotine dependence, cigarettes, uncomplicated

== ENCOUNTER 2017-01-18 07:11 | Emergency (ER) | payer MEDICARE ==
[2017-01-18 07:11] VITALS: BMI 21.5
[2017-01-18 07:26] VITALS: TEMP 98.7; O2SAT 96
--- NOTE | 2017-01-18 07:58 | ED PDOC ---
HPI: Chest Pain Time Seen by Provider: 01/18/17 07:30 Chief Complaint (Nursing): Chest Pain Chief Complaint (Provider): chest pain History Per: Patient History/Exam Limitations: no limitations Additional Complaint(s): Gonzalez Cardozo is a 66 year old male, with a previous medical history of hyperlipidemia and emphysema, who presents to the ED with complaints of chest pain and back pain ongoing since his recent discharge from the hospital. Patient denies any shortness of breath. He reports pain is worse with touch or coughing. He currently taking percocets, oxycodon and muscles relaxants. PMD: Ernesto Velasco MD Past Medical History Reviewed: Historical Data, Nursing Documentation, Vital Signs Vital Signs: Last Vital Signs Temp 98.7 F 01/18/17 07:23 Pulse 69 01/18/17 08:32 Resp 19 01/18/17 08:32 BP 116/57 L 01/18/17 08:32 Pulse Ox 96 01/19/17 10:54 - Medical History PMH: Back Problems, Emphysema, Hyperlipidemia - Surgical History Surgical History: Cholecystectomy - Family History Family History: States: Unknown Family Hx - Home Medications Home Medications: Ambulatory Orders Medication Instructions Recorded Cyclobenzaprine [Flexeril] 5 mg PO DAILY 09/01/15 oxyCODONE/Acetaminophen [Percocet 1 tab PO Q6 PRN #10 tab 01/10/17 5/325 mg Tab] - Allergies Allergies/Adverse Reactions: Allergies Allergy/AdvReac Type Severity Reaction Status Date / Time No Known Allergies Allergy Verified 01/18/17 07:36 Review of Systems ROS Statement: Except As Marked, All Systems Reviewed And Found Negative Cardiovascular: Positive for: Chest Pain Respiratory: Negative for: Shortness of Breath Musculoskeletal: Positive for: Back Pain Physical Exam - Reviewed Nursing Documentation Reviewed: Yes Vital Signs Reviewed: Yes - Physical Exam Appears: Positive for: Well (sleepy but arousable to verbal stimuli ), Non-toxic , No Acute Distress Head Exam: Positive for: ATRAUMATIC, NORMAL INSPECTION, NORMOCEPHALIC Skin: Positive for: Normal Color, Warm, Dry Eye Exam: Positive for: Normal appearance, EOMI, PERRL ENT: Positive for: Normal ENT Inspection Neck: Positive for: Normal, Painless ROM, Supple Cardiovascular/Chest: Positive for: Regular Rate, Rhythm. Negative for: Chest Non Tender (tenderness of the bilateral chest wall ) Respiratory: Positive for: Normal Breath Sounds Gastrointestinal/Abdominal: Positive for: Normal Exam, Bowel Sounds, Soft. Negative for: Tenderness Back: Positive for: Other (tenderness of the entire back ) Extremity: Positive for: Normal ROM. Negative for: Tenderness, Deformity Neurologic/Psych: Positive for: Alert, Oriented. Negative for: Motor/Sensory Deficits - Laboratory Results Result Diagrams: 01/18/17 08:15 01/18/17 08:15 - ECG O2 Sat by Pulse Oximetry: 96 (RA) Pulse Ox Interpretation: Normal Medical Decision Making Medical Decision Making: Initial Plan: * labs * EKG * CXR * D-dimer * PTT * PT * Troponin I * reevaluation Pt's repeatedly approached RN asking for results, told multiple times that results were pending. agitated stating they have been in ED for 2 hours, told RN that pt wants to leave against medical advice. Leaving Against Medical Advice (AMA): This patient is choosing to leave against medical advice. AMA form completed and signature obtained by RN. Scribe Attestation: Documented by Thu Clayton, acting as a scribe for Thu Sequeira MD. Provider Scribe Attestation: All medical record entries made by the Scribe were at my direction and personally dictated by me. I have reviewed the chart and agree that the record accurately reflects my personal performance of the history, physical exam, medical decision making, and the department course for this patient. I have also personally directed, reviewed, and agree with the discharge instructions and disposition. Disposition - Clinical Impression Clinical Impression: Chest pain - Disposition Disposition: Against Medical Advice Disposition Time: 10:10 Condition: UNKNOWN Forms: [employer] (Croatian)
[2017-01-18 08:21] LABS: BASO # 0.1 K/uL (0.0-0.2); BASO % 0.8 % (0.0-2.0); EOS # 0.1 K/uL (0.0-0.7); HEMATOCRIT 40.9 % (35.0-51.0); LYMPH # 2.1 K/uL (1.0-4.3); LYMPH % 21.1 % (20.0-40.0); MEAN CELL VOLUME 92.6 fl (80.0-94.0); MEAN CORPUSCULAR HEMOGLOBIN 31.2 pg (27.0-31.0); MEAN CORPUSCULAR HGB CONC 33.7 g/dL (33.0-37.0); MEAN PLATELET VOLUME 8.4 fl (7.2-11.7); MONO # 0.5 K/uL (0.0-0.8); MONO % 4.8 % (0.0-10.0); NEUT # 7.3 K/uL (1.8-7.0); NEUT % 72.3 % (50.0-75.0); NRBC % 0.1 % (0.0-0.0); RED CELL DISTRIBUTION WIDTH 14.4 % (11.5-14.5); WHITE BLOOD COUNT 10.1 K/uL (4.8-10.8)
[2017-01-18 08:30] LABS: ALB/GLOB RATIO 1.4 (1.0-2.1); ALKALINE PHOSPHATASE 98 U/L (38-126); ALT/SGPT 30 U/L (21-72); AST/SGOT 13 U/L (17-59); BILIRUBIN,TOTAL 0.4 mg/dl (0.2-1.3); BLOOD UREA NITROGEN 11 mg/dl (9-20); CARBON DIOXIDE 20 mmol/L (22-30); CHLORIDE 108 mmol/L (98-107); GFR AFRICAN-AMERICAN > 60; GLUCOSE,RANDOM 93 mg/dL (75-110); POTASSIUM 3.7 MMOL/L (3.6-5.0); SODIUM 138 mmol/l (132-148); TOTAL PROTEIN 6.6 G/DL (6.3-8.2)
[2017-01-18 08:33] VITALS: BP 116/57; PULSE 69; RESP 19
[2017-01-18 08:42] LABS: PARTIAL THROMBOPLASTIN TIME 32.3 Seconds (25.6-37.1)
--- NOTE | 2017-01-18 11:20 | RAD ---
HISTORY: Bilateral chest pain COMPARISON: No prior. TECHNIQUE: Chest PA and lateral FINDINGS: LUNGS: Hyperinflation, manifestations of COPD. No active pulmonary disease. Stable underlying interstitial lung disease. PLEURA: No significant pleural effusion identified. No pneumothorax apparent. CARDIOVASCULAR: Normal. OSSEOUS STRUCTURES: No significant abnormalities. Stable old healed rib fractures. VISUALIZED UPPER ABDOMEN: Normal. OTHER FINDINGS: None. IMPRESSION: No active disease. No significant interval change compared to the prior examination(s). No preliminary report provided by emergency department personnel.
--- NOTE | 2017-01-19 18:16 | CARD ---
APPROVED REPORT EKG Measurement Heart [id number] [id number] [id number] <Conclusion> Normal sinus rhythm Normal ECG
== END 2017-01-18 19:42 | disposition left against medical advice (07) ==
LOC: H.ER 07:11
DX: R07.89 Other chest pain (principal); J43.9 Emphysema, unspecified
CPT/HCPCS: 71020; 80053; 84484; 85025; 85378; 85610; 85730; 93005; 96374; 99284; J1885

== ENCOUNTER 2017-01-28 19:05 | Emergency (ER) | payer MEDICARE ==
[2017-01-28 19:05] VITALS: BMI 21.5
[2017-01-28] MEDS ORDERED: Sodium Chloride 0.9% 1,000 ML IV STA (19:26)
--- NOTE | 2017-01-28 19:30 | ED PDOC ---
HPI: General Adult Time Seen by Provider: 01/28/17 19:15 Chief Complaint (Nursing): Fever Chief Complaint (Provider): Sweating History Per: Patient History/Exam Limitations: no limitations Onset/Duration Of Symptoms: Days (Today) Additional Complaint(s): Pt. was walking from [facility] after taking his son to the doctor there. On the way he was sweating so he went to the fire department and told them to take him to the hospital. Pt. states he felt weak and dizzy then too. He was walking from [facility] to [place]. Pt. currently has no weakness or sweating. Feels much better. Never had any chest pain, dyspnea, abd pain, headache, numbness, tingles, nausea, vomit, diarrhea, cough, runny nose, sore throat. Pt. admits to chronic pain and low back pain. No incontinence or constipation. Past Medical History Reviewed: Nursing Documentation, Vital Signs Vital Signs: Last Vital Signs Temp 100 F H 01/28/17 21:00 Pulse 110 H 01/28/17 19:08 Resp 20 01/28/17 19:08 BP 146/77 01/28/17 19:08 Pulse Ox 99 01/28/17 22:42 - Medical History PMH: Back Problems, Emphysema, Hyperlipidemia Denies: Chronic Kidney Disease - Surgical History Surgical History: Cholecystectomy - Family History Family History: States: Unknown Family Hx - Living Arrangements Living Arrangements: With Family - Social History Current smoker - smoking cessation education provided: No Alcohol: None Drugs: Denies - Home Medications Home Medications: Ambulatory Orders Medication Instructions Recorded Cyclobenzaprine [Flexeril] 5 mg PO DAILY 09/01/15 oxyCODONE/Acetaminophen [Percocet 1 tab PO Q6 PRN #10 tab 01/10/17 5/325 mg Tab] - Allergies Allergies/Adverse Reactions: Allergies Allergy/AdvReac Type Severity Reaction Status Date / Time No Known Allergies Allergy Verified 01/18/17 07:36 Review of Systems ROS Statement: Except As Marked, All Systems Reviewed And Found Negative Constitutional: Positive for: Sweats, Weakness Neurological: Positive for: Weakness, Dizziness Physical Exam - Reviewed Nursing Documentation Reviewed: Yes Vital Signs Reviewed: Yes - Physical Exam Appears: Positive for: Non-toxic, No Acute Distress Head Exam: Positive for: ATRAUMATIC, NORMAL INSPECTION, NORMOCEPHALIC Skin: Positive for: Normal Color, Warm, DRY Eye Exam: Positive for: EOMI, Normal appearance, PERRL ENT: Positive for: Normal ENT Inspection Neck: Positive for: Normal, Painless ROM Cardiovascular/Chest: Positive for: Regular Rate, Rhythm Respiratory: Positive for: CNT, Normal Breath Sounds Gastrointestinal/Abdominal: Positive for: Normal Exam, Bowel Sounds, Soft. Negative for: Tenderness Back: Positive for: Normal Inspection. Negative for: L CVA Tenderness, R CVA Tenderness Extremity: Positive for: Normal ROM. Negative for: Tenderness, Pedal Edema Neurologic/Psych: Positive for: Alert, rougher helper II-XII, Oriented. Negative for: Motor/Sensory Deficits, Aphasia, Facial Droop - Laboratory Results Result Diagrams: 01/28/17 22:52 01/28/17 19:56 Interpretation Of Abn Labs: 19.3 wbc - ECG ECG: Positive for: Interpreted By Me, Viewed By Me ECG Rhythm: Positive for: Normal QRS, Normal ST Segment, Sinus Tachycardia (107) O2 Sat by Pulse Oximetry: 99 Pulse Ox Interpretation: Normal - Radiology X-Ray: Interpreted by Me, Viewed By Me X-Ray Interpretation: No Acute Disease - CT Scan/US head Other Rad Studies (CT/US): Read By Radiologist Other Rad Interpretation: no acute - Progress ED Course And Treament: 1037: Stable. AAOx3. Active. No discomfort. Fever went down with no pyretic meds. WBC likely elevated due to walking in heat. Will repeat cbc and get cpk. Not likely infectious etiology. 1114: Per old charts, pt. had high fever and altered in the past. No LP done. Pt. was ama after he was awake. 1128: Pt. aaox3. Pain free. Talking and communicating with no issues. Ambulating with no issues. Mini Mental Status Exam Intact. Pt. has capacity to make decisions. at bedside and agree and understand pt. wishhes. He does not want to stay in the hospital or get further evaluation/LP done at this time. Will go home against medical advice. Aware of possible or decreased functioning from cause of fever and his other symptoms that have not been evaluated and treated. Disposition - Clinical Impression Clinical Impression: Fever of unknown origin, Leucocytosis - Patient ED Disposition Is Patient to be Admitted: No Counseled Patient/Family Regarding: Studies Performed, Diagnosis - Disposition Referrals: [facility] [Outside] - 01/31/17 Disposition: Against Medical Advice Disposition Time: 23:32 Condition: FAIR Additional Instructions: You are going against medical advice. You should return right away for further evaluation and treatment of your fevers, sweating, and other symptoms. You can or have decreased functioning from the cause of your symptoms. Instructions: Fever in Adults (ED), Leukocytosis (ED)
[2017-01-28 19:59] LABS: BASO # 0.1 K/uL (0.0-0.2); BASO % 0.3 % (0.0-2.0); LYMPH # 0.7 K/uL (1.0-4.3); LYMPH % 3.6 % (20.0-40.0); MEAN CELL VOLUME 91.3 fl (80.0-94.0); MEAN CORPUSCULAR HEMOGLOBIN 31.3 pg (27.0-31.0); MEAN CORPUSCULAR HGB CONC 34.3 g/dL (33.0-37.0); MEAN PLATELET VOLUME 8.7 fl (7.2-11.7); MONO % 5.2 % (0.0-10.0); NEUT # 17.5 K/uL (1.8-7.0); NEUT % 90.9 % (50.0-75.0); PLATELET COUNT 219 K/uL (130-400); RBC 4.16 Mil/uL (4.40-5.90); RED CELL DISTRIBUTION WIDTH 14.1 % (11.5-14.5); WHITE BLOOD COUNT 19.3 K/uL (4.8-10.8)
[2017-01-28 20:10] LABS: ALB/GLOB RATIO 1.5 (1.0-2.1); ALBUMIN 3.9 g/dL (3.5-5.0); ALT/SGPT 20 U/L (21-72); AST/SGOT 26 U/L (17-59); BLOOD UREA NITROGEN 11 mg/dl (9-20); CALCIUM 9.4 mg/dL (8.4-10.2); GFR AFRICAN-AMERICAN > 60; GFR NON-AFRICAN AMERICAN > 60
--- NOTE | 2017-01-28 21:05 | CT ---
EXAM: CT Head Without Intravenous Contrast CLINICAL HISTORY: 66 years old, male; Signs and symptoms; Other: Poss. Heat exhaustion; Additional info: Headache TECHNIQUE: Axial computed tomography images of the head/brain without intravenous contrast. All CT scans at this facility use one or more dose reduction techniques, viz.: automated exposure control; ma/kV adjustment per patient size (including targeted exams where dose is matched to indication; i.e. head); or iterative reconstruction technique. Coronal and sagittal reformatted images were created and reviewed. EXAM DATE/TIME: 01/28/2017 7:25 PM COMPARISON: CT - HEAD W/O (CODE STROKE) 01/07/2017 9:08:37 PM FINDINGS: Brain: Ventricles are normal in size and configuration. There is no midline shift. There are no intra-axial or extra-axial mass lesions or areas of hemorrhage. There are no abnormal fluid collections. Duncan-white differentiation is maintained. Ventricles: See above. Bones: Cranial vault is intact. Soft tissues: unremarkable Sinuses: There is no acute sinusitis. Ears and mastoids: Middle ears and mastoids are unremarkable Orbits: Orbital contents are unremarkable. IMPRESSION: No acute intracranial abnormality
[2017-01-28 22:05] LABS: LYMPHOCYTE 6 % (20-50); MONOCYTE 8 % (0-10); NEUTROPHIL 86 % (42-75); PLATELET ESTIMATE NORMAL (NORMAL); TOTAL CELLS COUNTED 100
[2017-01-28 22:06] LABS: ANISOCYTOSIS SLIGHT
[2017-01-28 22:07] LABS: LARGE PLATELETS PRESENT; OVALOCYTES SLIGHT; TEARDROP CELLS SLIGHT
[2017-01-28 22:21] LABS: BARBITURATES, UR NEGATIVE (NEGATIVE); BENZODIAZEPINES, UR NEGATIVE (NEGATIVE); OPIATES, UR POSITIVE (NEGATIVE); PHENCYCLIDINE, UR NEGATIVE (NEGATIVE)
[2017-01-28 22:55] LABS: VENOUS BLOOD GAS BASE EXCESS -5.7 mmol/L (0.0-2.0); VENOUS BLOOD GAS PCO2 73 mmHg (40-60); VENOUS BLOOD GAS PO2 38 mm/Hg (30-55); VENOUS BLOOD PH 7.14 (7.32-7.43)
[2017-01-28 22:57] LABS: BASO # 0.2 K/uL (0.0-0.2); BASO % 0.6 % (0.0-2.0); HEMOGLOBIN 13.7 g/dL (12.0-18.0); LYMPH % 8.2 % (20.0-40.0); MEAN CELL VOLUME 92.6 fl (80.0-94.0); MEAN CORPUSCULAR HEMOGLOBIN 31.1 pg (27.0-31.0); MEAN CORPUSCULAR HGB CONC 33.6 g/dL (33.0-37.0); MEAN PLATELET VOLUME 8.5 fl (7.2-11.7); MONO # 1.2 K/uL (0.0-0.8); MONO % 4.8 % (0.0-10.0); NEUT # 21.3 K/uL (1.8-7.0); NEUT % 86.4 % (50.0-75.0); RBC 4.39 Mil/uL (4.40-5.90); RED CELL DISTRIBUTION WIDTH 14.4 % (11.5-14.5); WHITE BLOOD COUNT 24.6 K/uL (4.8-10.8)
[2017-01-28 23:40] VITALS: BP 125/57; PULSE 85; RESP 18; TEMP 99.1; O2SAT 98
--- NOTE | 2017-01-29 07:32 | RAD ---
HISTORY: sweating COMPARISON: No prior. FINDINGS: LUNGS: Mild chronic interstitial changes. PLEURA: No significant pleural effusion identified, no pneumothorax apparent. CARDIOVASCULAR: Normal. OSSEOUS STRUCTURES: No significant abnormalities. VISUALIZED UPPER ABDOMEN: Normal. OTHER FINDINGS: None. IMPRESSION: Mild chronic interstitial changes.
--- NOTE | 2017-01-29 12:02 | CARD ---
APPROVED REPORT EKG Measurement Heart [id number] <Conclusion> Sinus tachycardia Otherwise normal ECG
== END 2017-01-28 23:48 | disposition left against medical advice (07) ==
LOC: H.ER 19:05
DX: R50.9 Fever, unspecified (principal); D72.829 Elevated white blood cell count, unspecified
CPT/HCPCS: 36600; 70450; 71010; 80053; 82550; 82803; 84484; 85025; 93005; 96360; 99285; G0480; J7040

== ENCOUNTER 2017-03-20 03:01 | Inpatient (IN) | payer MEDICARE ==
[2017-03-20 03:01] VITALS: BMI 21.5
[2017-03-20] MEDS ORDERED: Sodium Chloride 0.9% 1,000 ML IV STA (03:25)
[2017-03-20 03:38] LABS: VENOUS BLOOD GAS BASE EXCESS 4.3 mmol/L (0.0-2.0); VENOUS BLOOD GAS PCO2 57 mmHg (40-60); VENOUS BLOOD PH 7.35 (7.32-7.43)
[2017-03-20 03:44] LABS: BASO % 0.3 % (0.0-2.0); EOS % 0.4 % (0.0-4.0); HEMATOCRIT 37.9 % (35.0-51.0); LYMPH # 1.1 K/uL (1.0-4.3); LYMPH % 8.9 % (20.0-40.0); MEAN CELL VOLUME 91.9 fl (80.0-94.0); MEAN CORPUSCULAR HEMOGLOBIN 31.5 pg (27.0-31.0); MEAN CORPUSCULAR HGB CONC 34.3 g/dL (33.0-37.0); MEAN PLATELET VOLUME 9.3 fl (7.2-11.7); MONO # 0.7 K/uL (0.0-0.8); MONO % 5.9 % (0.0-10.0); NEUT # 10.1 K/uL (1.8-7.0); NEUT % 84.5 % (50.0-75.0); NRBC % 0.1 % (0.0-0.0); PLATELET COUNT 230 K/uL (130-400); RED CELL DISTRIBUTION WIDTH 14.9 % (11.5-14.5)
[2017-03-20 04:06] LABS: PARTIAL THROMBOPLASTIN TIME 31.1 Seconds (25.6-37.1)
[2017-03-20 04:14] LABS: BLOOD UREA NITROGEN 8 mg/dl (9-20); GLUCOSE,RANDOM 102 mg/dL (75-110)
[2017-03-20 04:15] LABS: CALCIUM 8.5 mg/dL (8.4-10.2); CARBON DIOXIDE 29 mmol/L (22-30); CHLORIDE 98 mmol/L (98-107); GFR AFRICAN-AMERICAN > 60; MAGNESIUM 1.4 MG/DL (1.6-2.3); PHOSPHOROUS 2.2 mg/dl (2.5-4.5); POTASSIUM 4.3 MMOL/L (3.6-5.0); SODIUM 134 mmol/l (132-148); TOTAL PROTEIN 6.4 G/DL (6.3-8.2)
--- NOTE | 2017-03-20 04:15 | ED PDOC ---
HPI: Fever Fever Onset Was: 03/17/17 Symptoms Associated With Fever: Cough Additional Comments: Gonzalez is a 66 y/o male who was brought to the ED by his for evaluation of fever for the past 3 days, on and off, associated with chest congestion, a cough, and difficulty urinating with cloudy urine. Patient also has chronic back pain which has progressively worsened the last 2-3 weeks. He takes Percocet every day for this pain. also notes the patient seemed confused today. Patient himself is complaining of congestion and suprapubic pain while urinating. Patient is not complaining of any shortness of breath, however his thinks hes having some difficulty breathing. He attributes his symptoms to his chronic pain, and is able to provide all the details of his pain. Denies any associated chest pain, shortness of breath, nausea, vomiting, or diarrhea. PMD: Igor Ellis Past Medical History Reviewed: Historical Data, Nursing Documentation, Vital Signs Vital Signs: Last Vital Signs Temp 98.3 F 03/20/17 05:06 Pulse 75 03/20/17 05:06 Resp 18 03/20/17 05:06 BP 121/59 L 03/20/17 05:06 Pulse Ox 98 03/20/17 05:06 - Medical History PMH: Back Problems, COPD, Emphysema, HTN, Hyperlipidemia, Seizures Denies: Chronic Kidney Disease - Surgical History Surgical History: Cholecystectomy - Family History Family History: States: Unknown Family Hx - Home Medications Home Medications: Ambulatory Orders Medication Instructions Recorded Acetaminophen/Butalbital/Caf 1 tab PO TID PRN 03/20/17 [Fioricet] Cyclobenzaprine [Flexeril] 10 mg PO BID PRN 03/20/17 Oxycodone HCl [Oxycontin] 60 mg PO TID 03/20/17 oxyCODONE/Acetaminophen 1/2TAB 1 tab PO TID 03/20/17 [Percocet 5-325 mg HALF TAB] - Allergies Allergies/Adverse Reactions: Allergies Allergy/AdvReac Type Severity Reaction Status Date / Time No Known Allergies Allergy Verified 03/20/17 03:08 Review of Systems ROS Statement: Except As Marked, All Systems Reviewed And Found Negative Cardiovascular: Negative for: Chest Pain Respiratory: Negative for: Shortness of Breath Gastrointestinal: Negative for: Vomiting, Diarrhea Physical Exam - Reviewed Nursing Documentation Reviewed: Yes Vital Signs Reviewed: Yes - Physical Exam Appears: Positive for: Well, Non-toxic, No Acute Distress Head Exam: Positive for: ATRAUMATIC, NORMAL INSPECTION, NORMOCEPHALIC Skin: Positive for: Normal Color, Warm, Dry Eye Exam: Positive for: EOMI, Normal appearance, PERRL ENT: Positive for: Other (dry mucus membranes) Neck: Positive for: Normal, Supple Cardiovascular/Chest: Positive for: Regular Rate, Rhythm, Tachycardia. Negative for: Edema, Murmur Respiratory: Positive for: Rhonchi (bilaterally), Other (Tachypnic). Negative for: Wheezing, Respiratory Distress Gastrointestinal/Abdominal: Positive for: Normal Exam, Soft. Negative for: Tenderness, Distended Extremity: Positive for: Normal ROM Neurologic/Psych: Positive for: Alert, Oriented (x2), Other (Mild confusion) - Laboratory Results Result Diagrams: 03/20/17 03:15 03/20/17 03:15 - ECG ECG: Positive for: Interpreted By Me, Viewed By Me ECG Rhythm: Positive for: Normal QRS, Normal ST Segment, Sinus Rhythm, Sinus Tachycardia. Negative for: ST/T Changes Rate: 108 O2 Sat by Pulse Oximetry: 94 - Radiology X-Ray: Interpreted by Me, Viewed By Me X-Ray Interpretation: Infiltrates Medical Decision Making Medical Decision Making: Initial Impression: Fever with confusion, cough, and dysuria. Differentials include pneumonia, UTI, and sepsis. Time: 3:24 Initial Plan: --EKG --CMP --Magnesium --Phosphourous --Troponin I --CBC --PTT --Prothrombin time --VBG --Urinalysis --CXR --Blood and urine cultures --NS IV 1000 ml at 1000 mls/hr --Tylenol 650 mg PO --Pending reevaluation Time: 4:24 --Duoneb treatment INH --Peak flow pre/post treatment Scribe Attestation: Documented by Kala Middleton, acting as a scribe for Agapito Hawkins MD Provider Scribe Attestation: All medical record entries made by the Scribe were at my direction and personally dictated by me. I have reviewed the chart and agree that the record accurately reflects my personal performance of the history, physical exam, medical decision making, and the department course for this patient. I have also personally directed, reviewed, and agree with the discharge instructions and disposition. Disposition - Clinical Impression Clinical Impression: Pneumonia, Sepsis - Patient ED Disposition Is Patient to be Admitted: Yes Discussed With : Ernesto Velasco Doctor Will See Patient In The: Hospital Counseled Patient/Family Regarding: Studies Performed, Diagnosis - Disposition Disposition Time: 04:44 Condition: FAIR - Pt Status Changed To: Hospital Disposition Of: Inpatient - Admit Certification Admit to Inpatient:: After my assessment, the patient will require hospitalization for at least two midnights. This is because of the severity of symptoms shown, intensity of services needed, and/or the medical risk in this patient being treated as an outpatient. - POA Present On Arrival: None Core Measure Indicators: Pneumonia
[2017-03-20 04:16] LABS: ALB/GLOB RATIO 1.3 (1.0-2.1); ALKALINE PHOSPHATASE 91 U/L (38-126); ALT/SGPT 34 U/L (21-72); AST/SGOT 20 U/L (17-59); BILIRUBIN,TOTAL 0.5 mg/dl (0.2-1.3)
[2017-03-20] MEDS ORDERED: Albuterol-Ipratrop 3 mg / 0.5 (3 ml) UD INH STA (04:24)
[2017-03-20] MEDS ORDERED: Azithromycin 500 MG in Sodium Chloride 0.9% 250 ML IVPB STA (04:42)
[2017-03-20] MEDS ORDERED: cefTRIAXone (Rocephin) 1 gm Inj ONE (04:43)
[2017-03-20] MEDS ORDERED: Albuterol-Ipratrop 3 mg / 0.5 (3 ml) UD ONE (04:44)
[2017-03-20] MEDS ORDERED: Azithromycin 500 MG IV IVPB ONE (04:44)
[2017-03-20 05:17] LABS: NEUTROPHIL 85 % (42-75); REACTIVE LYMPHOCYTES 1 % (0-0); TOTAL CELLS COUNTED 100
[2017-03-20 05:56] LABS: RBC URINE 22 /hpf (0-3); URINE BILIRUBIN NEGATIVE (NEGATIVE); URINE BLOOD MODERATE (NEGATIVE); URINE COLOR YELLOW (YELLOW); URINE GLUCOSE (UA) NEG (Normal); URINE KETONE NEGATIVE (NEGATIVE); URINE LEUKOCYTE ESTERASE NEG Leu/uL (Negative); URINE PROTEIN 30 mg/dL (NEGATIVE); URINE UROBILINOGEN 0.2-1.0 mg/dL (0.2-1.0); WBC URINE 1 /hpf (0-5)
--- NOTE | 2017-03-20 09:38 | RAD ---
HISTORY: Sepsis Patient COMPARISON: 01/28/2017 . FINDINGS: LUNGS: Diffuse chronic interstitial changes are once again appreciated. Minor amount of superimposed congestion cannot fully be excluded. PLEURA: No significant pleural effusion identified, no pneumothorax apparent. CARDIOVASCULAR: Mild superimposed congestion is not excluded. Heart is normal in size. . OSSEOUS STRUCTURES: No significant abnormalities. VISUALIZED UPPER ABDOMEN: Normal. OTHER FINDINGS: None. IMPRESSION: Diffuse interstitial changes. Mild superimposed congestion is not excluded.
[2017-03-20] MEDS ORDERED: Albuterol-Ipratrop 3 mg / 0.5 (3 ml) UD INH PRN (11:09)
--- NOTE | 2017-03-20 11:13 | CP.PCM.HP ---
History of Present Illness - History of Present Illness History of Present Illness: This is a 66 y/o male admitted for pneumonia. Past Patient History - Past Medical History & Family History Past Medical History?: Yes - Past Social History Smoking Status: Current Some Days Smoker - CARDIAC Hx Cardiac Disorders: Yes Hx Hypertension: Yes - PULMONARY Hx Chronic Obstructive Pulmonary Disease (COPD): Yes Hx Emphysema: Yes - NEUROLOGICAL Hx Seizures: Yes - HEENT Hx HEENT Problems: No - RENAL Hx Chronic Kidney Disease: No - ENDOCRINE/METABOLIC Hx Endocrine Disorders: No - HEMATOLOGICAL/ONCOLOGICAL Hx Blood Disorders: No - INTEGUMENTARY Hx Dermatological Problems: No - MUSCULOSKELETAL/RHEUMATOLOGICAL Hx Musculoskeletal Disorders: Yes Hx Back Pain: Yes Hx Falls: No - GASTROINTESTINAL Hx Gastrointestinal Disorders: Yes Hx Gall Bladder Disease: Yes - GENITOURINARY/GYNECOLOGICAL Hx Genitourinary Disorders: No - PSYCHIATRIC Hx Psychophysiologic Disorder: No Hx Substance Use: Yes Other/Comment: past history of drinking - SURGICAL HISTORY Hx Cholecystectomy: Yes - ANESTHESIA Hx Anesthesia: Yes Hx Anesthesia Reactions: No Hx Malignant Hyperthermia: No Has any member of the family had a problem w/ anesthesia?: No Meds Allergies/Adverse Reactions: Allergies Allergy/AdvReac Type Severity Reaction Status Date / Time No Known Allergies Allergy Verified 03/20/17 03:08 Results - Vital Signs Recent Vital Signs: Last Vital Signs Temp 98.9 F 03/20/17 06:09 Pulse 80 03/20/17 08:01 Resp 20 03/20/17 08:01 BP 110/69 03/20/17 06:09 Pulse Ox 97 03/20/17 08:01 - Labs Result Diagrams: 03/20/17 03:15 03/20/17 03:15 Labs: Laboratory Results - last 24 hr 03/20/17 03/20/17 03/20/17 03:15 03:15 03:15 WBC 12.0 H D RBC 4.12 L Hgb 13.0 Hct 37.9 MCV 91.9 MCH 31.5 H MCHC 34.3 RDW 14.9 H Plt Count 230 MPV 9.3 Neut % (Auto) 84.5 H Lymph % (Auto) 8.9 L Darke % (Auto) 5.9 Eos % (Auto) 0.4 Baso % (Auto) 0.3 Neut # 10.1 H Lymph # 1.1 Darke # 0.7 Eos # 0.0 Baso # 0.0 Neutrophils % (Manual) 85 H Lymphocytes % (Manual) 7 L Reactive Lymphs % 1 H Monocytes % (Manual) 7 Platelet Estimate Normal PT 13.9 H INR 1.3 H APTT 31.1 pO2 VBG pH VBG pCO2 VBG HCO3 VBG Total CO2 VBG O2 Sat (Calc) VBG Base Excess VBG Potassium Glucose Lactate FiO2 Sodium 134 Potassium 4.3 Chloride 98 Carbon Dioxide 29 Anion Gap 11 BUN 8 L Creatinine 0.5 L Est GFR ( Amer) > 60 Est GFR (Non-Af Amer) > 60 Random Glucose 102 Calcium 8.5 Phosphorus 2.2 L Magnesium 1.4 L Total Bilirubin 0.5 AST 20 ALT 34 Alkaline Phosphatase 91 Troponin I < 0.0120 Total Protein 6.4 Albumin 3.6 Globulin 2.8 Albumin/Globulin Ratio 1.3 Venous Blood Potassium Urine Color Urine Clarity Urine pH Ur Specific [place] Urine Protein Urine Glucose (UA) Urine Ketones Urine Blood Urine Nitrate Urine Bilirubin Urine Urobilinogen Ur Leukocyte Esterase Urine RBC (Auto) Urine Microscopic WBC Ur Squamous Epith Cells 03/20/17 03/20/17 03:36 05:30 WBC RBC Hgb Hct MCV MCH MCHC RDW Plt Count MPV Neut % (Auto) Lymph % (Auto) Darke % (Auto) Eos % (Auto) Baso % (Auto) Neut # Lymph # Darke # Eos # Baso # Neutrophils % (Manual) Lymphocytes % (Manual) Reactive Lymphs % Monocytes % (Manual) Platelet Estimate PT INR APTT pO2 36 VBG pH 7.35 VBG pCO2 57 VBG HCO3 27.4 VBG Total CO2 33.2 H VBG O2 Sat (Calc) 79.2 H VBG Base Excess 4.3 H VBG Potassium 4.1 Glucose 103 Lactate 1.0 FiO2 21.0 Sodium 132.0 Potassium Chloride 100.0 Carbon Dioxide Anion Gap BUN Creatinine Est GFR ( Amer) Est GFR (Non-Af Amer) Random Glucose Calcium Phosphorus Magnesium Total Bilirubin AST ALT Alkaline Phosphatase Troponin I Total Protein Albumin Globulin Albumin/Globulin Ratio Venous Blood Potassium 4.1 Urine Color Yellow Urine Clarity Clear Urine pH 5.0 Ur Specific [place] 1.021 Urine Protein 30 Urine Glucose (UA) Neg Urine Ketones Negative Urine Blood Moderate Urine Nitrate Negative Urine Bilirubin Negative Urine Urobilinogen 0.2-1.0 Ur Leukocyte Esterase Neg Urine RBC (Auto) 22 H Urine Microscopic WBC 1 Ur Squamous Epith Cells < 1
[2017-03-20] MEDS: Azithromycin 500 MG in Sodium Chloride 0.9% 250 ML IVPB SCH (14:51)
[2017-03-20] MEDS: Oxycodone/Acetaminophen 5/325 mg Tab PO PRN ×2 (16:49→22:10)
[2017-03-20] MEDS: guaiFENesin DM 200 mg-20 mg/10 ml UD PO PRN (16:51)
[2017-03-21] MEDS: Oxycodone/Acetaminophen 5/325 mg Tab PO PRN ×4 (05:13→22:36)
--- NOTE | 2017-03-21 08:14 | CARD ---
APPROVED REPORT EKG Measurement Heart [id number] <Conclusion> Sinus tachycardia Otherwise normal ECG
[2017-03-21] MEDS: Azithromycin 500 MG in Sodium Chloride 0.9% 250 ML IVPB SCH (09:01)
--- NOTE | 2017-03-21 16:48 | CP.PCM.CON ---
History of Present Illness - History of Present Illness History of Present Illness: Longstanding patient of mine for outpatient pain still smoking in spite of years of counseling now with pneumonia pain is stable He is able to ambulate around the room now The lower dosage of medications is fine for him now I will see as an outpatient on discharge continue current care Past Patient History - Past Medical History & Family History Past Medical History?: Yes - Past Social History Smoking Status: Current Some Days Smoker - CARDIAC Hx Cardiac Disorders: Yes Hx Hypertension: Yes - PULMONARY Hx Chronic Obstructive Pulmonary Disease (COPD): Yes Hx Emphysema: Yes - NEUROLOGICAL Hx Seizures: Yes - HEENT Hx HEENT Problems: No - RENAL Hx Chronic Kidney Disease: No - ENDOCRINE/METABOLIC Hx Endocrine Disorders: No - HEMATOLOGICAL/ONCOLOGICAL Hx Blood Disorders: No - INTEGUMENTARY Hx Dermatological Problems: No - MUSCULOSKELETAL/RHEUMATOLOGICAL Hx Musculoskeletal Disorders: Yes Hx Back Pain: Yes Hx Falls: No - GASTROINTESTINAL Hx Gastrointestinal Disorders: Yes Hx Gall Bladder Disease: Yes - GENITOURINARY/GYNECOLOGICAL Hx Genitourinary Disorders: No - PSYCHIATRIC Hx Psychophysiologic Disorder: No Hx Substance Use: Yes Other/Comment: past history of drinking - SURGICAL HISTORY Hx Cholecystectomy: Yes - ANESTHESIA Hx Anesthesia: Yes Hx Anesthesia Reactions: No Hx Malignant Hyperthermia: No Has any member of the family had a problem w/ anesthesia?: No Meds Allergies/Adverse Reactions: Allergies Allergy/AdvReac Type Severity Reaction Status Date / Time No Known Allergies Allergy Verified 03/20/17 03:08 - Medications Medications: Current Medications Acetaminophen (Tylenol 325mg Tab) 650 mg PO Q6 PRN PRN Reason: Fever >100.4 F Albuterol/Ipratropium (Duoneb 3 Mg/0.5 Mg (3 Ml) Ud) 3 ml INH RQ6 PRN PRN Reason: Shortness of Breath Last Admin: 03/20/17 13:40 Dose: 3 ml Cyclobenzaprine HCl (Flexeril) 10 mg PO HS PRN PRN Reason: Muscle spasm Guaifenesin/Dextromethorphan (Robitussin Dm) 10 ml PO Q6 PRN PRN Reason: Cough Last Admin: 03/20/17 16:51 Dose: 10 ml Ceftriaxone Sodium 1 gm/ (Sodium Chloride) 100 mls @ 100 mls/hr IVPB DAILY [facility]UREN Last Admin: 03/21/17 09:00 Dose: 100 mls/hr Azithromycin 500 mg/ Sodium (Chloride) 250 mls @ 250 mls/hr IVPB DAILY [facility] Last Admin: 03/21/17 09:01 Dose: 250 mls/hr Nicotine (Nicoderm Cq) 1 patch TD DAILY [facility] Last Admin: 03/21/17 12:06 Dose: 1 patch Oxycodone/Acetaminophen (Percocet 5/325 Mg Tab) 1 tab PO Q4 PRN PRN Reason: Pain, moderate (4-7) Stop: 03/24/17 13:01 Last Admin: 03/21/17 12:02 Dose: 1 tab Results - Vital Signs Recent Vital Signs: Last Vital Signs Temp 97.9 F 03/21/17 15:53 Pulse 79 03/21/17 15:53 Resp 20 03/21/17 15:53 BP 162/81 H 03/21/17 15:53 Pulse Ox 98 03/21/17 15:53 - Labs Result Diagrams: 03/20/17 03:15 03/20/17 03:15
[2017-03-22] MEDS: Oxycodone/Acetaminophen 5/325 mg Tab PO PRN ×5 (03:48→22:54)
[2017-03-22 05:32] LABS: HEMATOCRIT 38.1 % (35.0-51.0); MEAN CELL VOLUME 92.5 fl (80.0-94.0); MEAN CORPUSCULAR HEMOGLOBIN 31.1 pg (27.0-31.0); MEAN CORPUSCULAR HGB CONC 33.7 g/dL (33.0-37.0); RED CELL DISTRIBUTION WIDTH 14.6 % (11.5-14.5); WHITE BLOOD COUNT 6.8 K/uL (4.8-10.8)
[2017-03-22 05:42] LABS: BLOOD UREA NITROGEN 4 mg/dl (9-20); CARBON DIOXIDE 27 mmol/L (22-30); CHLORIDE 99 mmol/L (98-107); GFR AFRICAN-AMERICAN > 60; GLUCOSE,RANDOM 70 mg/dL (75-110); POTASSIUM 3.9 MMOL/L (3.6-5.0); SODIUM 140 mmol/l (132-148)
[2017-03-22] MEDS: Azithromycin 500 MG in Sodium Chloride 0.9% 250 ML IVPB SCH (08:31)
[2017-03-22] MEDS ORDERED: Apap-Butalbital-Caffeine 325-50-40mg Tab PO PRN (09:28)
--- NOTE | 2017-03-22 09:57 | CP.PCM.PN ---
Subjective - Date & Time of Evaluation Date of Evaluation: 03/21/17 Time of Evaluation: 10:40 - Subjective Subjective: Patient is doing a lot better. Still with cough and rhonchi and rales. Objective - Vital Signs/Intake and Output Vital Signs (last 24 hours): Temp Pulse Resp BP Pulse Ox 97.9 F 87 18 158/81 H 96 03/22/17 08:05 03/22/17 08:05 03/22/17 08:05 03/22/17 08:05 03/22/17 08:05 - Medications Medications: Current Medications Acetaminophen (Tylenol 325mg Tab) 650 mg PO Q6 PRN PRN Reason: Fever >100.4 F Acetaminophen/Butalbital/Caffeine (Fioricet) 1 tab PO TID PRN PRN Reason: Migraine headache Albuterol/Ipratropium (Duoneb 3 Mg/0.5 Mg (3 Ml) Ud) 3 ml INH RQ6 PRN PRN Reason: Shortness of Breath Last Admin: 03/20/17 13:40 Dose: 3 ml Cyclobenzaprine HCl (Flexeril) 10 mg PO HS PRN PRN Reason: Muscle spasm Cyclobenzaprine HCl (Flexeril) 10 mg PO BID PRN PRN Reason: spasms Enoxaparin Sodium (Lovenox) 40 mg SC DAILY LAUREN PRN Reason: Protocol Guaifenesin/Dextromethorphan (Robitussin Dm) 10 ml PO Q6 PRN PRN Reason: Cough Last Admin: 03/20/17 16:51 Dose: 10 ml Ceftriaxone Sodium 1 gm/ (Sodium Chloride) 100 mls @ 100 mls/hr IVPB DAILY [facility] Last Admin: 03/22/17 08:30 Dose: 100 mls/hr Azithromycin 500 mg/ Sodium (Chloride) 250 mls @ 250 mls/hr IVPB DAILY [facility] Last Admin: 03/22/17 08:31 Dose: 250 mls/hr Nicotine (Nicoderm Cq) 1 patch TD DAILY [facility] Last Admin: 03/22/17 08:28 Dose: 1 patch Oxycodone/Acetaminophen (Percocet 5/325 Mg Tab) 1 tab PO Q4 PRN PRN Reason: Pain, moderate (4-7) Stop: 03/24/17 13:01 Last Admin: 03/22/17 08:29 Dose: 1 tab - Labs Labs: 03/22/17 04:30 03/22/17 04:30 PT 13.9 Seconds (9.8-13.1) H 03/20/17 03:15 INR 1.3 (0.9-1.2) H 03/20/17 03:15 APTT 31.1 Seconds (25.6-37.1) 03/20/17 03:15
--- NOTE | 2017-03-22 10:13 | PQF GENQUE ---
Dr. Velasco, ER MD documented the following information with no mention of this diagnosis in your documentation. Please indicate in your next progress note your agreement with staff consultant or provide clarification that this diagnosis is not a current condition: i.e. Sepsis ruled out etc. Diagnosis: Sepsis Documented by: ER Location: ER record ER MD: Impression.: Pneumonia, Sepsis Temp..:103.1 Pulse;114->109->75->108 WBC: 12 left shift bld cultures prelim: 48 hrs.: no growth This form is a permanent part of the medical record Clarification of your documentation is requested to better reflect the severity of illness and intensity of treatment of your patient. Indicators present [] Specify: [] [] Specify: [] [] Specify: [] [] Specify: [] Location in the medical record that reflects the above clinical findings: [] Treatment Provided: [] PHYSICIAN'S RESPONSE Based on your medical judgment of the clinical indicators outlined above please clarify the following: [] Practitioner response [] If unable to determine, please check the box, sign and date. Present On Admission (POA) Indicator: [] Present at the time of admission [] Not present at the time of admission [] Clinically Undetermined In responding to this query, please exercise your independent professional judgment. The fact that a question is asked does not imply that any particular answer is desired or expected. Thank you for your clarification on this documentation. If you have any questions please call. * Thank you, Jayda Cline RN ext. #[phone]: Bessie Leigh RN [email or web address]
--- NOTE | 2017-03-22 11:23 | CP.PCM.PN ---
Subjective - Date & Time of Evaluation Date of Evaluation: 03/22/17 Time of Evaluation: 11:23 - Subjective Subjective: till with a lot of coughing Has no fever Noted more rales. Objective - Vital Signs/Intake and Output Vital Signs (last 24 hours): Temp Pulse Resp BP Pulse Ox 97.9 F 87 18 158/81 H 96 03/22/17 08:05 03/22/17 08:05 03/22/17 08:05 03/22/17 08:05 03/22/17 08:05 - Medications Medications: Current Medications Acetaminophen (Tylenol 325mg Tab) 650 mg PO Q6 PRN PRN Reason: Fever >100.4 F Acetaminophen/Butalbital/Caffeine (Fioricet) 1 tab PO TID PRN PRN Reason: Migraine headache Albuterol/Ipratropium (Duoneb 3 Mg/0.5 Mg (3 Ml) Ud) 3 ml INH RQ6 PRN PRN Reason: Shortness of Breath Last Admin: 03/20/17 13:40 Dose: 3 ml Amlodipine Besylate (Norvasc) 5 mg PO DAILY [facility] Cyclobenzaprine HCl (Flexeril) 10 mg PO HS PRN PRN Reason: Muscle spasm Cyclobenzaprine HCl (Flexeril) 10 mg PO BID PRN PRN Reason: spasms Enoxaparin Sodium (Lovenox) 40 mg SC DAILY [facility] PRN Reason: Protocol Guaifenesin/Dextromethorphan (Robitussin Dm) 10 ml PO Q6 PRN PRN Reason: Cough Last Admin: 03/20/17 16:51 Dose: 10 ml Ceftriaxone Sodium 1 gm/ (Sodium Chloride) 100 mls @ 100 mls/hr IVPB DAILY [facility] Last Admin: 03/22/17 08:30 Dose: 100 mls/hr Azithromycin 500 mg/ Sodium (Chloride) 250 mls @ 250 mls/hr IVPB DAILY [facility] Last Admin: 03/22/17 08:31 Dose: 250 mls/hr Nicotine (Nicoderm Cq) 1 patch TD DAILY [facility] Last Admin: 03/22/17 08:28 Dose: 1 patch Oxycodone/Acetaminophen (Percocet 5/325 Mg Tab) 1 tab PO Q4 PRN PRN Reason: Pain, moderate (4-7) Stop: 03/24/17 13:01 Last Admin: 03/22/17 08:29 Dose: 1 tab - Labs Labs: 03/22/17 04:30 03/22/17 04:30 PT 13.9 Seconds (9.8-13.1) H 03/20/17 03:15 INR 1.3 (0.9-1.2) H 03/20/17 03:15 APTT 31.1 Seconds (25.6-37.1) 03/20/17 03:15
--- NOTE | 2017-03-22 12:49 | RAD ---
HISTORY: pneumonia COMPARISON: 03/20/2017 TECHNIQUE: Chest PA and lateral FINDINGS: LUNGS: No acute infiltrate. Mild reticular interstitial infiltrate appreciated at lung bases. 2 cm nodule in lower left lung seen only in frontal projection. This is not seen on prior examination. This could represent nipple shadow. Repeat frontal chest radiograph with nipple markers is advised. Old healed fracture right 8th rib posterior laterally. PLEURA: No significant pleural effusion identified. No pneumothorax apparent. CARDIOVASCULAR: Normal. OSSEOUS STRUCTURES: No significant abnormalities. VISUALIZED UPPER ABDOMEN: Normal. OTHER FINDINGS: None. IMPRESSION: No acute infiltrate. 2 cm nodular opacity lower left lung. Recommend repeat frontal chest radiograph with radiopaque nipple markers.
[2017-03-22] MEDS: Enoxaparin 40 mg Syringe SC SCH (13:38)
[2017-03-22 15:34] VITALS: RESP 20
[2017-03-22] MEDS: guaiFENesin DM 200 mg-20 mg/10 ml UD PO PRN (20:58)
[2017-03-23] MEDS: Oxycodone/Acetaminophen 5/325 mg Tab PO PRN ×3 (02:52→14:08)
[2017-03-23] MEDS: guaiFENesin DM 200 mg-20 mg/10 ml UD PO PRN ×2 (02:52→09:09)
[2017-03-23 08:39] VITALS: PULSE 83; TEMP 98.2; O2SAT 95
[2017-03-23] MEDS: Enoxaparin 40 mg Syringe SC SCH (09:08)
[2017-03-23] MEDS: Azithromycin 500 MG in Sodium Chloride 0.9% 250 ML IVPB SCH (09:09)
[2017-03-23 12:22] VITALS: BP 143/78
--- NOTE | 2017-03-23 13:31 | CT ---
PROCEDURE: CT Chest without contrast HISTORY: lung nodule COMPARISON: Plain radiographs from 03/22/2017 TECHNIQUE: Contiguous axial images were obtained through the chest without intravenous contrast enhancement. Sagittal and coronal reconstructions were performed. Radiation dose (DLP): 496.17 mGy-cm. This CT exam was performed using one or more of the following dose reduction techniques: Automated exposure control, adjustment of the mA and/or kV according to patient size, and/or use of iterative reconstruction technique. FINDINGS: LUNGS: The lungs are well inflated. There are tree in bud opacities in both lower lobes and bibasilar subsegmental atelectasis. There is patchy ground-glass attenuation in the left upper lobe. There is also bronchial wall thickening and scattered peribronchial ground-glass attenuation in both lungs. The questioned nodular opacity on the plain radiographs in the left lower lobe likely corresponds to airspace disease in the left lower lobe however no discrete pulmonary nodule is identified. MEDIASTINUM: The heart is normal in size. There is trace pericardial effusion. There are subcentimeter mediastinal lymph nodes, likely reactive. There are advanced atherosclerotic calcifications in the coronary arteries pain PLEURA: No pleural fluid. No pneumothorax. BONES: No fracture. No destructive lesion. UPPER ABDOMEN: Grossly unremarkable. OTHER FINDINGS: There is mild multilevel degenerative disc disease and an old superior endplate compression fracture deformity in the L1 vertebral body. IMPRESSION: Findings are most compatible with infectious bronchiolitis in the lower lobes. The questioned density in the left lower lobe on plain x-ray likely corresponds to confluent airspace disease/subsegmental atelectasis. No definite evidence for pulmonary nodule.
--- NOTE | 2017-03-23 14:05 | CP.PCM.DIS ---
Provider - Provider Date of Admission: 03/20/17 04:44 Attending physician: Ernesto Velasco MD Time Spent in preparation of Discharge (in minutes): 30 Hospital Course - Lab Results Lab Results: Micro Results 03/20/17 03:30 Blood Blood Culture - Preliminary NO GROWTH AFTER 3 DAYS 03/20/17 03:30 Blood Blood Culture - Preliminary NO GROWTH AFTER 3 DAYS 03/20/17 05:30 Urine Urine Culture - Final No Growth (<1,000 CFU/ML) Most Recent Lab Values WBC 6.8 K/uL (4.8-10.8) 03/22/17 04:30 RBC 4.11 Mil/uL (4.40-5.90) L 03/22/17 04:30 Hgb 12.8 g/dL (12.0-18.0) 03/22/17 04:30 Hct 38.1 % (35.0-51.0) 03/22/17 04:30 MCV 92.5 fl (80.0-94.0) 03/22/17 04:30 MCH 31.1 pg (27.0-31.0) H 03/22/17 04:30 MCHC 33.7 g/dL (33.0-37.0) 03/22/17 04:30 RDW 14.6 % (11.5-14.5) H 03/22/17 04:30 Plt Count 255 K/uL (130-400) 03/22/17 04:30 MPV 9.3 fl (7.2-11.7) 03/20/17 03:15 Neut % (Auto) 84.5 % (50.0-75.0) H 03/20/17 03:15 Lymph % (Auto) 8.9 % (20.0-40.0) L 03/20/17 03:15 [place] % (Auto) 5.9 % (0.0-10.0) 03/20/17 03:15 Eos % (Auto) 0.4 % (0.0-4.0) 03/20/17 03:15 Baso % (Auto) 0.3 % (0.0-2.0) 03/20/17 03:15 Neut # 10.1 K/uL (1.8-7.0) H 03/20/17 03:15 Lymph # 1.1 K/uL (1.0-4.3) 03/20/17 03:15 [place] # 0.7 K/uL (0.0-0.8) 03/20/17 03:15 Eos # 0.0 K/uL (0.0-0.7) 03/20/17 03:15 Baso # 0.0 K/uL (0.0-0.2) 03/20/17 03:15 Neutrophils % (Manual) 85 % (42-75) H 03/20/17 03:15 Lymphocytes % (Manual) 7 % (20-50) L 03/20/17 03:15 Reactive Lymphs % 1 % (0-0) H 03/20/17 03:15 Monocytes % (Manual) 7 % (0-10) 03/20/17 03:15 Platelet Estimate Normal (NORMAL) 03/20/17 03:15 PT 13.9 Seconds (9.8-13.1) H 03/20/17 03:15 INR 1.3 (0.9-1.2) H 03/20/17 03:15 APTT 31.1 Seconds (25.6-37.1) 03/20/17 03:15 pO2 36 mm/Hg (30-55) 03/20/17 03:36 VBG pH 7.35 (7.32-7.43) 03/20/17 03:36 VBG pCO2 57 mmHg (40-60) 03/20/17 03:36 VBG HCO3 27.4 mmol/L 03/20/17 03:36 VBG Total CO2 33.2 mmol/L (22-28) H 03/20/17 03:36 VBG O2 Sat (Calc) 79.2 % (40-65) H 03/20/17 03:36 VBG Base Excess 4.3 mmol/L (0.0-2.0) H 03/20/17 03:36 VBG Potassium 4.1 mmol/L (3.6-5.2) 03/20/17 03:36 Sodium 132.0 mmol/L (132-148) 03/20/17 03:36 Chloride 100.0 mmol/L (98-107) 03/20/17 03:36 Glucose 103 mg/dL (75-110) 03/20/17 03:36 Lactate 1.0 mmol/L (0.7-2.1) 03/20/17 03:36 FiO2 21.0 % 03/20/17 03:36 Sodium 140 mmol/l (132-148) 03/22/17 04:30 Potassium 3.9 MMOL/L (3.6-5.0) 03/22/17 04:30 Chloride 99 mmol/L (98-107) 03/22/17 04:30 Carbon Dioxide 27 mmol/L (22-30) 03/22/17 04:30 Anion Gap 18 (10-20) 03/22/17 04:30 BUN 4 mg/dl (9-20) L 03/22/17 04:30 Creatinine 0.5 mg/dL (0.8-1.5) L 03/22/17 04:30 Est GFR ( Amer) > 60 03/22/17 04:30 Est GFR (Non-Af Amer) > 60 03/22/17 04:30 Random Glucose 70 mg/dL (75-110) L 03/22/17 04:30 Calcium 9.0 mg/dL (8.4-10.2) 03/22/17 04:30 Phosphorus 2.2 mg/dl (2.5-4.5) L 03/20/17 03:15 Magnesium 1.4 MG/DL (1.6-2.3) L 03/20/17 03:15 Total Bilirubin 0.5 mg/dl (0.2-1.3) 03/20/17 03:15 AST 20 U/L (17-59) 03/20/17 03:15 ALT 34 U/L (21-72) 03/20/17 03:15 Alkaline Phosphatase 91 U/L (38-126) 03/20/17 03:15 Troponin I < 0.0120 ng/mL (0.00-0.120) 03/20/17 03:15 Total Protein 6.4 G/DL (6.3-8.2) 03/20/17 03:15 Albumin 3.6 g/dL (3.5-5.0) 03/20/17 03:15 Globulin 2.8 gm/dL (2.2-3.9) 03/20/17 03:15 Albumin/Globulin Ratio 1.3 (1.0-2.1) 03/20/17 03:15 Venous Blood Potassium 4.1 mmol/L (3.6-5.2) 03/20/17 03:36 Urine Color Yellow (YELLOW) 03/20/17 05:30 Urine Clarity Clear (Clear) 03/20/17 05:30 Urine pH 5.0 (5.0-8.0) 03/20/17 05:30 Ur Specific [place] 1.021 (1.003-1.030) 03/20/17 05:30 Urine Protein 30 mg/dL (NEGATIVE) 03/20/17 05:30 Urine Glucose (UA) Neg mg/dL (Normal) 03/20/17 05:30 Urine Ketones Negative mg/dL (NEGATIVE) 03/20/17 05:30 Urine Blood Moderate (NEGATIVE) 03/20/17 05:30 Urine Nitrate Negative (NEGATIVE) 03/20/17 05:30 Urine Bilirubin Negative (NEGATIVE) 03/20/17 05:30 Urine Urobilinogen 0.2-1.0 mg/dL (0.2-1.0) 03/20/17 05:30 Ur Leukocyte Esterase Neg [place]/uL (Negative) 03/20/17 05:30 Urine RBC (Auto) 22 /hpf (0-3) H 03/20/17 05:30 Urine Microscopic WBC 1 /hpf (0-5) 03/20/17 05:30 Ur Squamous Epith Cells < 1 /hpf (0-5) 03/20/17 05:30 - Hospital Course Hospital Course: 66 YO M who was admitted for cough, congestion, and found to have pnemonia was treated w/ IV antibiotics during his stay. Patient has remained afebrile over past 24 hours. Patient feels better and would like to go home. Denies fever, chils, chest pain. Repeat X ray did not show any consolidation but it showed possible 2 cm opacity on lower left lung. A chest CT was done to follow up and did not show any evidence of pulmonary nodule. Discharge Exam - Head Exam Head Exam: ATRAUMATIC, NORMAL INSPECTION, NORMOCEPHALIC - Eye Exam Eye Exam: Normal appearance - ENT Exam ENT Exam: Mucous Membranes Moist - Respiratory Exam Respiratory Exam: NORMAL BREATHING PATTERN. absent: Rales, Wheezes - Cardiovascular Exam Cardiovascular Exam: REGULAR RHYTHM, +S1, +S2 - GI/Abdominal Exam GI & Abdominal Exam: Normal Bowel Sounds. absent: Tenderness - Neurological Exam Neurological exam: Alert, CN II-XII Intact, Oriented x3 Discharge Plan - Discharge Medications Prescriptions: Fluticasone/Salmeterol 250/50 [Advair Diskus] 1 puff IH Q12 #1 puff guaiFENesin/Dextromethorphan [Robitussin DM] 10 ml PO Q6 PRN #14 udc PRN Reason: Cough Levofloxacin [Levaquin] 750 mg PO DAILY #7 tablet - Follow Up Plan Condition: FAIR Instructions: Community Acquired Pneumonia (DC) Additional Instructions: patient cleared for discharge to Home today by E rx sent to [facility] meds to beds pt. f/u with next tuesday pt. f/u with for pain management Referrals: Ernesto Velasco MD [Staff Provider] -
--- NOTE | 2017-03-23 14:47 | CP.PCM.PCO ---
Assessment & Plan - Assessment and Plan (Free Text) Assessment: feels well, denies sob, cp, fever, chill nvd CT chest results reviewed and discussed with patient cleared for discharge to Home today by E rx sent to [facility] pharmacy meds to beds pt.will f/u with next tuesday pt. f/u with for pain management
== END 2017-03-23 15:38 | disposition home or self-care (01) | DRG 194 ==
LOC: H.ER 03:01 → H.ERHOLD 04:44 → H.TEL 06:07
PROVIDERS: ADMIT Family Medicine; ATTEND Family Medicine
DX: J18.9 Pneumonia, unspecified organism (principal); J44.0 Chronic obstructive pulmonary disease with (acute) lower respiratory infection; I10 Essential (primary) hypertension; F17.200 Nicotine dependence, unspecified, uncomplicated; E78.5 Hyperlipidemia, unspecified; G89.29 Other chronic pain

== ENCOUNTER 2017-04-11 17:19 | Emergency (ER) | payer MEDICARE ==
[2017-04-11 17:19] VITALS: BMI 21.5
[2017-04-11 17:23] VITALS: BP 114/70; PULSE 77; RESP 16; TEMP 97.6; O2SAT 98
[2017-04-11] MEDS ORDERED: Lidocaine 1% Inj (20ml) ONE (17:31)
--- NOTE | 2017-04-11 17:39 | ED PDOC ---
HPI: Wound Care - HPI Time Seen by Provider: 04/11/17 17:25 Chief Complaint (Nursing): Abnormal Skin Integrity Chief Complaint (Provider): Upper lip injury History Per: Patient Exam Limitations: no limitations Onset/Duration Of Symptoms: Mins (x10) Current Symptoms Are (Timing): Still Present Additional Complaint(s): Gonzalez is a 66 y/o male who presents to the ED for evaluation of injury to the upper lip, sustained 10 minutes ago. States he tripped and fell on a sneaker and struck his lip on a wooden table. Denies loss of consciousness of head injury. Patient now with active bleeding and multiple lacerations to the upper lip. PMD: Provider TBD Past Medical History Reviewed: Historical Data, Nursing Documentation, Vital Signs Vital Signs: Last Vital Signs Temp 97.6 F 04/11/17 17:23 Pulse 77 04/11/17 17:23 Resp 16 04/11/17 17:23 BP 114/70 04/11/17 17:23 Pulse Ox 98 04/11/17 17:23 - Medical History PMH: Back Problems, COPD, Emphysema, Gall Bladder Disease, HTN, Hyperlipidemia, Seizures Denies: Chronic Kidney Disease - Surgical History Surgical History: Cholecystectomy - Family History Family History: States: Unknown Family Hx - Home Medications Home Medications: Ambulatory Orders Medication Instructions Recorded Acetaminophen/Butalbital/Caf 1 tab PO TID PRN 03/20/17 [Fioricet] Cyclobenzaprine [Flexeril] 10 mg PO BID PRN 03/20/17 Oxycodone HCl [Oxycontin] 60 mg PO TID 03/20/17 oxyCODONE/Acetaminophen 1/2TAB 1 tab PO TID 03/20/17 [Percocet 5-325 mg HALF TAB] Fluticasone/Salmeterol 250/50 1 puff IH Q12 #1 puff 03/23/17 [Advair Diskus] Levofloxacin [Levaquin] 750 mg PO DAILY #7 tablet 03/23/17 guaiFENesin/Dextromethorphan 10 ml PO Q6 PRN #14 udc 03/23/17 [Robitussin DM] - Allergies Allergies/Adverse Reactions: Allergies Allergy/AdvReac Type Severity Reaction Status Date / Time No Known Allergies Allergy Verified 03/20/17 03:08 Review of Systems ROS Statement: Except As Marked, All Systems Reviewed And Found Negative Skin: Positive for: Lesions (to the upper lip) Neurological: Negative for: Other (Loss of consciousness, head injury) Physical Exam - Reviewed Nursing Documentation Reviewed: Yes Vital Signs Reviewed: Yes - Physical Exam Appears: Positive for: Non-toxic, No Acute Distress Head Exam: Positive for: ATRAUMATIC, NORMAL INSPECTION, NORMOCEPHALIC Skin: Positive for: Normal Color (with jagged irregular lacerations to the upper lip. 1/2 cm depth), Warm, Dry Eye Exam: Positive for: Normal appearance Neck: Positive for: Normal Respiratory: Negative for: Respiratory Distress Neurologic/Psych: Positive for: Alert, Oriented - ECG O2 Sat by Pulse Oximetry: 98 (RA) Pulse Ox Interpretation: Normal - Critical Care Total Time (In Min): 30 Procedure: Wound Repair - Time Performed Time Performed: 17:40 - Time Out Time Out: Side verified, Site verified, Patient ID confirmed, Sterile procedures obs. - Procedure Procedure: Wound Repair: Facial laceration repair - Consent Obtained Consent obtained: Verbal - Performed by Performed by: Mid-level Provider - Indications Indication(s):: Laceration - Location Location:: Lip (upper) Shape:: Other (Jagged, irregular) - Anesthetic Technique Anesthetic Technique: Local Local/Regional Anesthetic:: Lidocaine 1% - Wound repair method Sutures:: # (10 total, 4 underneath and 6 on top), Size (6:0), Type (Chromic) - Patient tolerated procedure Patient Tolerated Procedure:: Well Medical Decision Making Medical Decision Making: Time: 17:30 Initial Plan: --Ordered Lidocaine 1% for laceration repair --Laceration repaired with 10 6:0 chromic sutures (4 underneath, 10 on top lip) Clinical Impression: Facial laceration Advised that stitches will dissolve. Patient is medically stable for discharge and requires no further treatment in the ED. Follow up with PMD as needed. There is agreement to discharge plan. Return if symptoms persist or worsen. Scribe Attestation: Documented by Kala Middleton, acting as a scribe for Krysten Galindo PA-C Provider Scribe Attestation: All medical record entries made by the Scribe were at my direction and personally dictated by me. I have reviewed the chart and agree that the record accurately reflects my personal performance of the history, physical exam, medical decision making, and the department course for this patient. I have also personally directed, reviewed, and agree with the discharge instructions and disposition. Disposition - Clinical Impression Clinical Impression: Facial laceration - Patient ED Disposition Is Patient to be Admitted: No Counseled Patient/Family Regarding: Diagnosis, Need For Followup - Disposition Disposition: Routine/Home Disposition Time: 18:40 Condition: STABLE Instructions: Care For Your Absorbable Stitches (ED) Forms: [email or web address] (Luxembourgish)
== END 2017-04-11 19:29 | disposition home or self-care (01) ==
LOC: H.ER 17:19
DX: S01.511A Laceration without foreign body of lip, initial encounter (principal); W01.0XXA Fall on same level from slipping, tripping and stumbling without subsequent striking against object, initial encounter; Y92.89 Other specified places as the place of occurrence of the external cause; E78.5 Hyperlipidemia, unspecified; I10 Essential (primary) hypertension; J44.9 Chronic obstructive pulmonary disease, unspecified

== ENCOUNTER 2017-06-07 22:57 | Emergency (ER) | payer MEDICARE ==
[2017-06-07 22:57] VITALS: BMI 21.5
[2017-06-07 23:01] VITALS: BP 128/66; PULSE 85; RESP 16; TEMP 98; O2SAT 100
--- NOTE | 2017-06-07 23:49 | ED PDOC ---
HPI: Back Time Seen by Provider: 06/07/17 23:27 Chief Complaint (Nursing): Back Pain Chief Complaint (Provider): back pain History Per: Patient History/Exam Limitations: no limitations Onset/Duration Of Symptoms: Days Current Symptoms Are (Timing): Still Present Quality Of Discomfort: "Pain" Previous Symptoms: Back Pain Exacerbating Factor(s): Turning, Movement Additional History Per: Patient Additional Complaint(s): 67 y/o male history of chronic back pain presents with acute low back pain x 2 days. Patient states he ran out of his Percocet and Oxycontin that his pain management doctor prescribes and his next appointment is not for another 5 days. Patient has been taking Fioricet for pain with some relief. Denies fever , nausea/vomiting, numbness/weakness lower extremities, bowel/bladder incontinence, new trauma. Past Medical History Reviewed: Historical Data, Nursing Documentation, Vital Signs Vital Signs: Last Vital Signs Temp 98.0 F 06/07/17 22:59 Pulse 85 06/07/17 22:59 Resp 16 06/07/17 22:59 BP 128/66 06/07/17 22:59 Pulse Ox 100 06/07/17 22:59 - Medical History PMH: Back Problems, COPD, Emphysema, Gall Bladder Disease, HTN, Hyperlipidemia, Seizures Denies: Chronic Kidney Disease - Surgical History Surgical History: Cholecystectomy - Family History Family History: States: Unknown Family Hx - Home Medications Home Medications: Ambulatory Orders Medication Instructions Recorded Acetaminophen/Butalbital/Caf 1 tab PO TID PRN 03/20/17 [Fioricet] Cyclobenzaprine [Flexeril] 10 mg PO BID PRN 03/20/17 Oxycodone HCl [Oxycontin] 60 mg PO TID 03/20/17 oxyCODONE/Acetaminophen 1/2TAB 1 tab PO TID 03/20/17 [Percocet 5-325 mg HALF TAB] Fluticasone/Salmeterol 250/50 1 puff IH Q12 #1 puff 03/23/17 [Advair Diskus] Levofloxacin [Levaquin] 750 mg PO DAILY #7 tablet 03/23/17 guaiFENesin/Dextromethorphan 10 ml PO Q6 PRN #14 udc 03/23/17 [Robitussin DM] Cyclobenzaprine [Cyclobenzaprine 10 mg PO BID PRN #14 tab 06/08/17 HCl] Lidocaine 5% [Lidoderm] 1 patch TOP DAILY #5 patch 06/08/17 Naproxen [Naprosyn] 500 mg PO Q12 PRN #20 tablet 06/08/17 - Allergies Allergies/Adverse Reactions: Allergies Allergy/AdvReac Type Severity Reaction Status Date / Time No Known Allergies Allergy Verified 06/07/17 22:59 Review of Systems ROS Statement: Except As Marked, All Systems Reviewed And Found Negative Musculoskeletal: Positive for: Back Pain Physical Exam - Reviewed Nursing Documentation Reviewed: Yes Vital Signs Reviewed: Yes - Physical Exam Appears: Positive for: Well, Non-toxic, No Acute Distress Head Exam: Positive for: ATRAUMATIC, NORMAL INSPECTION, NORMOCEPHALIC Cardiovascular/Chest: Positive for: Regular Rate, Rhythm Respiratory: Positive for: Normal Breath Sounds Back: Positive for: Muscle Spasm (bilateral lspine paraspinals). Negative for: L CVA Tenderness, R CVA Tenderness, Vertebral Tenderness, Decreased ROM Extremity: Positive for: Normal ROM Neurologic/Psych: Positive for: Alert, Oriented - ECG O2 Sat by Pulse Oximetry: 100 - Progress ED Course And Treament: Toradol IM, flexeril PO On re-eval, patient ambulating without difficulty. Patient discharged with rx flexeril, naproxen, lidoderm. Advised follow up PMD/pain management. Return precautions given. Disposition - Clinical Impression Clinical Impression: Back pain - Patient ED Disposition Is Patient to be Admitted: No Counseled Patient/Family Regarding: Studies Performed, Diagnosis, Need For Followup, Rx Given - Disposition Disposition: Routine/Home Disposition Time: 00:40 Condition: IMPROVED Prescriptions: Cyclobenzaprine [Cyclobenzaprine HCl] 10 mg PO BID PRN #14 tab PRN Reason: Muscle Spasm Lidocaine 5% [Lidoderm] 1 patch TOP DAILY #5 patch Naproxen [Naprosyn] 500 mg PO Q12 PRN #20 tablet PRN Reason: Pain, Moderate (4-7) Instructions: Chronic Back Pain (ED) Forms: [employer] (Moroccan)
== END 2017-06-08 01:00 | disposition home or self-care (01) ==
LOC: H.ER 22:57
DX: M54.9 Dorsalgia, unspecified (principal); E78.5 Hyperlipidemia, unspecified; G89.29 Other chronic pain; I10 Essential (primary) hypertension; J44.9 Chronic obstructive pulmonary disease, unspecified
CPT/HCPCS: 96372; 99282; J1885

== ENCOUNTER 2017-08-28 22:15 | Observation (INO) | payer MEDICARE ==
[2017-08-28 22:16] VITALS: BMI 21.5
[2017-08-28 22:22] VITALS: BP 155/92; PULSE 86; RESP 16; TEMP 97.6; O2SAT 100
[2017-08-28 23:16] LABS: BASO # 0.1 K/uL (0.0-0.2); BASO % 1.3 % (0.0-2.0); EOS # 0.2 K/uL (0.0-0.7); EOS % 1.9 % (0.0-4.0); HEMOGLOBIN 13.2 g/dL (12.0-18.0); LYMPH # 3.3 K/uL (1.0-4.3); LYMPH % 40.2 % (20.0-40.0); MEAN CORPUSCULAR HEMOGLOBIN 31.7 pg (27.0-31.0); MEAN CORPUSCULAR HGB CONC 34.5 g/dL (33.0-37.0); MEAN PLATELET VOLUME 8.3 fl (7.2-11.7); MONO # 0.9 K/uL (0.0-0.8); MONO % 10.9 % (0.0-10.0); NEUT # 3.7 K/uL (1.8-7.0); NEUT % 45.7 % (50.0-75.0); NRBC % 0.1 % (0.0-0.0); RBC 4.16 Mil/uL (4.40-5.90); RED CELL DISTRIBUTION WIDTH 14.8 % (11.5-14.5); WHITE BLOOD COUNT 8.2 K/uL (4.8-10.8)
--- NOTE | 2017-08-28 23:27 | ED PDOC ---
HPI: Chest Pain Time Seen by Provider: 08/28/17 22:15 Chief Complaint (Nursing): Chest Pain Chief Complaint (Provider): Chest Pain History Per: Patient History/Exam Limitations: no limitations Onset/Duration Of Symptoms: Hrs (x 5) Current Symptoms Are (Timing): Still Present Additional Complaint(s): 67 year old male with a history of HTN and COPD brought in by EMS for evaluation pf chest pain that began around 5 hours ago. Patient reports the chest pain began after arguing with his son over the phone who lives in [place] because son is doing drugs and agitating patient. When he recounts the argument he still begins to get angry. PMD: Uziel Aly Past Medical History Reviewed: Historical Data, Nursing Documentation, Vital Signs Vital Signs: Last Vital Signs Temp 97.6 F 08/28/17 22:20 Pulse 86 08/28/17 22:20 Resp 16 08/28/17 22:20 BP 155/92 H 08/28/17 22:20 Pulse Ox 100 08/31/17 20:36 - Medical History PMH: Back Problems, COPD, Emphysema, Gall Bladder Disease, HTN, Hyperlipidemia, Seizures Denies: Chronic Kidney Disease - Surgical History Surgical History: Cholecystectomy - Family History Family History: States: Unknown Family Hx - Social History Current smoker - smoking cessation education provided: Yes SMOKER/PACKS PER DAY:: 1 Alcohol: None - Home Medications Home Medications: Ambulatory Orders Medication Instructions Recorded Acetaminophen/Butalbital/Caf 1 tab PO TID PRN 03/20/17 [Fioricet] Cyclobenzaprine [Flexeril] 10 mg PO BID PRN 03/20/17 Oxycodone HCl [Oxycontin] 60 mg PO TID 03/20/17 oxyCODONE/Acetaminophen 1/2TAB 1 tab PO TID 03/20/17 [Percocet 5-325 mg HALF TAB] Fluticasone/Salmeterol 250/50 1 puff IH Q12 #1 puff 03/23/17 [Advair Diskus] Levofloxacin [Levaquin] 750 mg PO DAILY #7 tablet 03/23/17 guaiFENesin/Dextromethorphan 10 ml PO Q6 PRN #14 udc 03/23/17 [Robitussin DM] Cyclobenzaprine [Cyclobenzaprine 10 mg PO BID PRN #14 tab 06/08/17 HCl] Lidocaine 5% [Lidoderm] 1 patch TOP DAILY #5 patch 06/08/17 Naproxen [Naprosyn] 500 mg PO Q12 PRN #20 tablet 06/08/17 - Allergies Allergies/Adverse Reactions: Allergies Allergy/AdvReac Type Severity Reaction Status Date / Time No Known Allergies Allergy Verified 08/28/17 22:20 Review of Systems ROS Statement: Except As Marked, All Systems Reviewed And Found Negative Cardiovascular: Positive for: Chest Pain Physical Exam - Reviewed Nursing Documentation Reviewed: Yes Vital Signs Reviewed: Yes - Physical Exam Appears: Positive for: Non-toxic, No Acute Distress Head Exam: Positive for: ATRAUMATIC, NORMOCEPHALIC Skin: Positive for: Normal Color, Warm, Dry Eye Exam: Positive for: EOMI, Normal appearance, PERRL Neck: Positive for: Normal, Painless ROM, Supple Cardiovascular/Chest: Positive for: Regular Rate, Rhythm. Negative for: Murmur Respiratory: Positive for: Normal Breath Sounds. Negative for: Respiratory Distress Gastrointestinal/Abdominal: Positive for: Normal Exam, Soft Back: Positive for: Normal Inspection. Negative for: L CVA Tenderness, R CVA Tenderness Extremity: Positive for: Normal ROM. Negative for: Deformity Neurologic/Psych: Positive for: Alert, Oriented. Negative for: Motor/Sensory Deficits - Laboratory Results Result Diagrams: 08/28/17 23:09 08/28/17 23:09 - ECG O2 Sat by Pulse Oximetry: 100 (RA) Pulse Ox Interpretation: Normal Medical Decision Making Medical Decision Making: Time: 23:00 Impression: chest pain rule out CAD, pneumonia Initial Plan: --CMP --Troponin I --Chest x-ray --CBC with differentials cxr shows copd, no acute infiltrate notied Upon reevaluation, patient still has chest pain. Ordered Nitroglycerin and Aspirin. Will be admitted to observation in telemetry to Dr. Mccartney. Time: 02:01 --Patient was accepted for admission to Dr. Mccartney but left/eloped from the ED against advisement after being admitted. Scribe Attestation: Documented by Violetta Browne, acting as a scribe for Titi Penn MD. Provider Scribe Attestation: All medical record entries made by the Scribe were at my direction and personally dictated by me. I have reviewed the chart and agree that the record accurately reflects my personal performance of the history, physical exam, medical decision making, and the department course for this patient. I have also personally directed, reviewed, and agree with the discharge instructions and disposition. Disposition - Clinical Impression Clinical Impression: Atypical chest pain - Patient ED Disposition Is Patient to be Admitted: Yes Counseled Patient/Family Regarding: Studies Performed, Diagnosis - Disposition Disposition Time: 01:00 Condition: STABLE - Pt Status Changed To: Hospital Disposition Of: Observation
[2017-08-28 23:28] LABS: ALB/GLOB RATIO 1.4 (1.0-2.1); ALBUMIN 3.8 g/dL (3.5-5.0); ALT/SGPT 20 U/L (21-72); AST/SGOT 13 U/L (17-59); BLOOD UREA NITROGEN 11 mg/dl (9-20); CALCIUM 9.3 mg/dL (8.4-10.2); GFR AFRICAN-AMERICAN > 60; GFR NON-AFRICAN AMERICAN > 60
[2017-08-29] MEDS ORDERED: Apap-Butalbital-Caffeine 325-50-40mg Tab PO PRN (01:30)
--- NOTE | 2017-08-29 01:38 | CP.PCM.HP ---
History of Present Illness - History of Present Illness History of Present Illness: CC: Chest pain HPI: This is a 67 y/o male with HTN, COPD, and active smoking among other medical conditions who is brought in by EMS due to acute onset of CP. 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 There is no radiation, no diaphoresis, no tachycardia. Patient denies cough, SOB. Denies prior episodes of CP like this. Denies worsening BRAR. Denies f/c/n/v/d. ROS: 14 systems reviewed, negative other than HPI MHx: HTN, COPD, chronic back pain; ?seizures on past admissions, but no AED SHx: Cholecystectomy Allergies: NKDA Medications: per med rec Family Hx: Reviewed, no findings Social Hx: LIves with family, no EtOH, 1 ppd of tobacco for many years Present on Admission - Present on Admission Any Indicators Present on Admission: No Past Patient History - Past Medical History & Family History Past Medical History?: Yes - Past Social History Alcohol: None - CARDIAC Hx Hypertension: Yes - PULMONARY Hx Chronic Obstructive Pulmonary Disease (COPD): Yes Hx Emphysema: Yes - NEUROLOGICAL Hx Seizures: Yes - HEENT Hx HEENT Problems: No - RENAL Hx Chronic Kidney Disease: No - ENDOCRINE/METABOLIC Hx Endocrine Disorders: No - HEMATOLOGICAL/ONCOLOGICAL Hx Blood Disorders: No - INTEGUMENTARY Hx Dermatological Problems: No - MUSCULOSKELETAL/RHEUMATOLOGICAL Hx Musculoskeletal Disorders: Yes Hx Back Pain: Yes Hx Falls: No - GASTROINTESTINAL Hx Gall Bladder Disease: Yes - GENITOURINARY/GYNECOLOGICAL Hx Genitourinary Disorders: No - PSYCHIATRIC Hx Psychophysiologic Disorder: No Hx Substance Use: Yes Other/Comment: past history of drinking - SURGICAL HISTORY Hx Cholecystectomy: Yes - ANESTHESIA Hx Anesthesia: Yes Hx Anesthesia Reactions: No Hx Malignant Hyperthermia: No Meds Allergies/Adverse Reactions: Allergies Allergy/AdvReac Type Severity Reaction Status Date / Time No Known Allergies Allergy Verified 08/28/17 22:20 Physical Exam - Constitutional Appears: No Acute Distress - Head Exam Head Exam: ATRAUMATIC, NORMOCEPHALIC - Eye Exam Eye Exam: EOMI, PERRL - ENT Exam ENT Exam: Mucous Membranes Moist - Neck Exam Neck exam: Positive for: Full Rom - Respiratory Exam Respiratory Exam: Clear to Auscultation Bilateral, NORMAL BREATHING PATTERN - Cardiovascular Exam Cardiovascular Exam: REGULAR RHYTHM, +S1, +S2 - GI/Abdominal Exam GI & Abdominal Exam: Normal Bowel Sounds, Soft - Extremities Exam Extremities exam: Positive for: full ROM, normal inspection - Neurological Exam Neurological exam: Alert, CN II-XII Intact, Oriented x3 - Psychiatric Exam Psychiatric exam: Normal Affect, Normal Mood - Skin Skin Exam: Dry, Warm Results - Vital Signs Recent Vital Signs: Last Vital Signs Temp 97.6 F 08/28/17 22:20 Pulse 86 08/28/17 22:20 Resp 16 08/28/17 22:20 BP 155/92 H 08/28/17 22:20 Pulse Ox 100 08/29/17 01:36 - Labs Result Diagrams: 08/28/17 23:09 08/28/17 23:09 Labs: Laboratory Results - last 24 hr 08/28/17 08/28/17 23:09 23:09 WBC 8.2 RBC 4.16 L Hgb 13.2 Hct 38.3 MCV 92.0 MCH 31.7 H MCHC 34.5 RDW 14.8 H Plt Count 305 MPV 8.3 Neut % (Auto) 45.7 L Lymph % (Auto) 40.2 H [place] % (Auto) 10.9 H Eos % (Auto) 1.9 Baso % (Auto) 1.3 Neut # (Auto) 3.7 Lymph # (Auto) 3.3 [place] # (Auto) 0.9 H Eos # (Auto) 0.2 Baso # (Auto) 0.1 Sodium 141 Potassium 4.2 Chloride 101 Carbon Dioxide 24 Anion Gap 20 BUN 11 Creatinine 0.5 L Est GFR ( Amer) > 60 Est GFR (Non-Af Amer) > 60 Random Glucose 81 Calcium 9.3 Total Bilirubin 0.3 AST 13 L D ALT 20 L D Alkaline Phosphatase 60 Troponin I < 0.0120 Total Protein 6.7 Albumin 3.8 Globulin 2.8 Albumin/Globulin Ratio 1.4 - EKG Data EKG Interpreted by: Myself EKG shows normal: Sinus rhythm Rate: Normal Assessment & Plan (1) Chest pain Assessment and Plan: 67 y/o male with HTN, COPD, and chronic back pain who comes in with acute onset CP. R/O ACS. 1) CP -Tele obs -Serial trops -Repeat EKG in AM -Cont ASA, SLNG 2) COPD -- stable, continue LA inhaler 3) Back pain -- stable, continue pain medication regimen 4) HTN -- monitor, currently on no medications 5) DVT PPx --SQ Lovenox Status: Acute (2) COPD (chronic obstructive pulmonary disease) with acute bronchitis Status: Acute (3) Chronic back pain Status: Acute (4) DVT prophylaxis Status: Acute
[2017-08-29] MEDS ORDERED: oxyCODONE 20 mg ER Tab (oxyCONTIN) PO SCH (09:00)
[2017-08-29] MEDS ORDERED: Fluticasone-Salmeterol 250-50mcg Diskus IH SCH (09:00)
[2017-08-29] MEDS ORDERED: Lidocaine 5% Patch TD SCH (09:00)
[2017-08-29] MEDS ORDERED: Enoxaparin 40 mg Syringe SC SCH (09:00)
--- NOTE | 2017-08-29 09:53 | RAD ---
HISTORY: chest pain COMPARISON: Comparison made with chest radiograph 03/22/[address] scan chest 03/23/2017. TECHNIQUE: Chest PA and lateral FINDINGS: LUNGS: Lung burrows are slightly hyperinflated with flattened diaphragms consistent with underlying tech COPD. No acute consolidation. Suspect minimal bibasilar scarring changes. PLEURA: No significant pleural effusion identified. No pneumothorax apparent. CARDIOVASCULAR: Normal. OSSEOUS STRUCTURES: Minor multilevel degenerative spondylosis of the thoracic spine VISUALIZED UPPER ABDOMEN: Normal. OTHER FINDINGS: None. IMPRESSION: Mild hyperinflation suggesting underlying COPD. No acute consolidation however suspect minimal bibasilar scarring changes No acute infiltrates.
== END 2017-08-29 01:54 | disposition left against medical advice (07) ==
LOC: H.ER 22:15 → H.ERHOLD 08-29 01:23
PROVIDERS: ADMIT Internal Medicine; ATTEND Internal Medicine
DX: R07.89 Other chest pain (principal); E78.5 Hyperlipidemia, unspecified; F17.210 Nicotine dependence, cigarettes, uncomplicated; G89.29 Other chronic pain; M54.9 Dorsalgia, unspecified; I10 Essential (primary) hypertension; J20.9 Acute bronchitis, unspecified; J44.0 Chronic obstructive pulmonary disease with (acute) lower respiratory infection; Z90.49 Acquired absence of other specified parts of digestive tract; K82.9 Disease of gallbladder, unspecified; R56.9 Unspecified convulsions
CPT/HCPCS: 71046; 80053; 84484; 85025; 99282; G0378

== ENCOUNTER 2017-09-29 14:08 | Inpatient (IN) | payer MEDICARE ==
[2017-09-29] MEDS ORDERED: Sodium Chloride 0.9% 1,000 ML IV STA (14:18)
[2017-09-29] MEDS ORDERED: Piperacillin/Tazobact 3.375 GM in Sodium Chloride 0.9% 100 ML IVPB STA (14:19)
--- NOTE | 2017-09-29 14:29 | ED PDOC ---
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 Patient received nebulizer treatment and steroids in field with no improvement and was subsequently intubated. Patient arrived hypotensive and with ET tube in place, he received fluid bolus and neosynephrine drip and improved. Patient was tachycardic with blood pressure 135/60. Past Medical History Reviewed: Historical Data, Nursing Documentation, Vital Signs Vital Signs: Last Vital Signs Temp 99.9 F H 09/29/17 14:32 Pulse 118 H 09/29/17 15:44 Resp 20 09/29/17 15:44 BP 179/144 H 09/29/17 15:44 Pulse Ox 99 09/29/17 15:44 - Medical History PMH: Back Problems, COPD, Emphysema, Gall Bladder Disease, HTN, Hyperlipidemia, Seizures Denies: Chronic Kidney Disease - Surgical History Surgical History: Cholecystectomy - Family History Family History: States: Unknown Family Hx - Home Medications Home Medications: Ambulatory Orders Medication Instructions Recorded Acetaminophen/Butalbital/Caf 1 tab PO Q6 PRN 03/20/17 [Fioricet] Oxycodone HCl [Oxycontin] 120 mg PO QAM 03/20/17 Cyclobenzaprine [Flexeril] 5 mg PO HS PRN 09/29/17 Oxycodone HCl [Oxycontin] 60 mg PO HS 09/29/17 Oxycodone HCl/Acetaminophen 1 tab PO Q6 PRN 09/29/17 [Percocet 7.5-325 mg Tablet] - Allergies Allergies/Adverse Reactions: Allergies Allergy/AdvReac Type Severity Reaction Status Date / Time No Known Allergies Allergy Verified 08/28/17 22:20 Review of Systems ROS Statement: Except As Marked, All Systems Reviewed And Found Negative Respiratory: Positive for: Other (respiratory distress) Physical Exam - Reviewed Nursing Documentation Reviewed: Yes Vital Signs Reviewed: Yes - Physical Exam Appears: Positive for: In Acute Distress Head Exam: Positive for: ATRAUMATIC, NORMAL INSPECTION, NORMOCEPHALIC Skin: Positive for: Normal Color, Warm, Dry Eye Exam: Positive for: Normal appearance Cardiovascular/Chest: Positive for: Tachycardia (and regular at 120. ) Respiratory: Positive for: Rhonchi, Other (Equal breath sounds b/l. No spontaneous effort (Patient had received Rocuronium and Ketamine in field prior to intubation)). Negative for: Wheezing Gastrointestinal/Abdominal: Positive for: Normal Exam, Soft. Negative for: Tenderness Extremity: Negative for: Deformity (Extremities), Swelling (extremities) Neurologic/Psych: Negative for: Alert (Intubated, not responding to verbal stimuli, no spontaneous movement. ) - Laboratory Results Result Diagrams: 09/29/17 15:20 09/29/17 15:20 - Critical Care Total Time (In Min): 30 Medical Decision Making Medical Decision Making: Initial Impression: Respiratory distress Initial Plan: --ABG --EKG --CMP --Troponin I --CBC w/ differential --D Dimer --Chest portable [RAD] --Glucose, POC --Sodium Chloride 1,000 ml IV 150 mls/hr --Vancomycin Inj 1,000 mg Sodium Chloride 250 ml IVPB --Zosyn 3.375 gm Sodium Chloride 0.9% 100 ml IVPB --Blood culture --Urine culture --Ventilator setting [RT] --Urinalysis --Reevaluation 15:30 -Procedure note: Right internal jugular placed under ultrasound guidance. Indication of probable sepsis and possible need for pressors and multiple antibiotics as well as fluids. -CXR show right lower lobe infiltrate on setting of respiratory failure ~ Scribe Attestation: Documented by Juancarlos Tao, acting as a scribe for Srikanth Dunne MD. Provider Scribe Attestation: All medical record entries made by the Scribe were at my direction and personally dictated by me. I have reviewed the chart and agree that the record accurately reflects my personal performance of the history, physical exam, medical decision making, and the department course for this patient. I have also personally directed, reviewed, and agree with the discharge instructions and disposition. Disposition - Clinical Impression Clinical Impression: Respiratory failure, Pneumonia, Sepsis - Patient ED Disposition Is Patient to be Admitted: Yes - Disposition Referrals: Provider TBD, [Non-Staff] - Disposition Time: 15:48 Condition: CRITICAL Forms: Playto (Romansh) - Pt Status Changed To: Hospital Disposition Of: Inpatient - Admit Certification Admit to Inpatient:: After my assessment, the patient will require hospitalization for at least two midnights. This is because of the severity of symptoms shown, intensity of services needed, and/or the medical risk in this patient being treated as an outpatient. - POA Present On Arrival: None
[2017-09-29] MEDS ORDERED: Piperacillin/Tazobact 3.375 gm Inj IVPB ONE (14:34)
[2017-09-29 14:36] LABS: ABG ALLEN TEST YES; ARTERIAL BLOOD GAS HCO3 22.6 mmol/L (21-28); ARTERIAL BLOOD GAS O2 SAT 100.3 % (95-98); ARTERIAL BLOOD GAS PCO2 88 mm/Hg (35-45); ARTERIAL BLOOD GAS PH 7.12 (7.35-7.45); ARTERIAL BLOOD GAS PO2 223 mm/Hg (80-100); ARTERIAL BLOOD GAS TCO2 31.3 mmol/L (22-28)
--- NOTE | 2017-09-29 15:11 | CARD ---
APPROVED REPORT EKG Measurement Heart [id number] <Conclusion> Sinus tachycardia T wave abnormality, consider inferior ischemia Abnormal ECG
[2017-09-29] MEDS ORDERED: Propofol 10 mg/ml Inj (20 ML) IV ONE ×3 (15:36→16:28)
[2017-09-29 15:39] LABS: BASO % 0.2 % (0.0-2.0); EOS % 0.1 % (0.0-4.0); HEMOGLOBIN 13.7 g/dL (12.0-18.0); LYMPH # 0.6 K/uL (1.0-4.3); LYMPH % 4.2 % (20.0-40.0); MEAN CELL VOLUME 93.6 fl (80.0-94.0); MEAN CORPUSCULAR HEMOGLOBIN 31.6 pg (27.0-31.0); MEAN CORPUSCULAR HGB CONC 33.7 g/dL (33.0-37.0); MEAN PLATELET VOLUME 8.7 fl (7.2-11.7); MONO # 0.6 K/uL (0.0-0.8); MONO % 4.2 % (0.0-10.0); NEUT # 13.2 K/uL (1.8-7.0); NEUT % 91.3 % (50.0-75.0); PLATELET COUNT 217 K/uL (130-400); RBC 4.34 Mil/uL (4.40-5.90); RED CELL DISTRIBUTION WIDTH 14.4 % (11.5-14.5); WHITE BLOOD COUNT 14.5 K/uL (4.8-10.8)
[2017-09-29] MEDS ORDERED: Propofol 10 mg/ml Inj (20 ML) ONE (15:41)
[2017-09-29] MEDS: Propofol 10 mg/ml 1,000 MG/100 ML VIAL IV SCH ×2 (15:44→22:46)
[2017-09-29 15:45] LABS: ALB/GLOB RATIO 1.1 (1.0-2.1); ALBUMIN 3.5 g/dL (3.5-5.0); ALT/SGPT 35 U/L (21-72); AST/SGOT 21 U/L (17-59); BLOOD UREA NITROGEN 24 mg/dl (9-20); CALCIUM 9.2 mg/dL (8.4-10.2); GFR AFRICAN-AMERICAN > 60; GFR NON-AFRICAN AMERICAN > 60
[2017-09-29 16:18] LABS: BANDS 2 % (0-2); LYMPHOCYTE 6 % (20-50); MONOCYTE 5 % (0-10); NEUTROPHIL 87 % (42-75); PLATELET ESTIMATE NORMAL (NORMAL); SMUDGE CELLS PRESENT; TOTAL CELLS COUNTED 100
[2017-09-29 16:19] LABS: URINE CLARITY SLIGHT-CLOUDY (Clear); URINE COLOR YELLOW (YELLOW); URINE GLUCOSE (UA) NEGATIVE (Normal)
[2017-09-29 16:19] LABS: HYPOCHROMIC SLIGHT
[2017-09-29 16:20] LABS: URINE BILIRUBIN NEGATIVE (NEGATIVE); URINE BLOOD MODERATE (NEGATIVE); URINE LEUKOCYTE ESTERASE NEGATIVE Leu/uL (Negative); URINE PROTEIN > 300 mg/dL (NEGATIVE); URINE UROBILINOGEN 0.2 mg/dL (0.2-1.0)
[2017-09-29 16:21] LABS: SQUAMOUS EPITHIAL 3 /hpf (0-5)
[2017-09-29 16:22] LABS: URINE AMORPHOUS SEDIMENT MODERATE /ul (<OCC)
--- NOTE | 2017-09-29 16:32 | RAD ---
HISTORY: cough COMPARISON: 08/28/2017 FINDINGS: LUNGS: Bilateral lower lobe opacity, right greater than left. This is new since prior chest radiograph of 08/28/2017. Likely pneumonia. PLEURA: No evidence of pleural effusion or pneumothorax. CARDIOVASCULAR: Endotracheal tube normally positioned 6.4 cm above the tracheal jhonny. Multi lumen right internal jugular central venous catheter noted. Normal heart size. No congestive change. OSSEOUS STRUCTURES: No significant abnormalities. VISUALIZED UPPER ABDOMEN: Normal. OTHER FINDINGS: None. IMPRESSION: Bilateral lower lobe opacity, right greater than left. Possible pneumonia. Endotracheal tube and right IJ central venous catheter noted.
[2017-09-29] MEDS ORDERED: cefTRIAXone (Rocephin) 1 gm Inj ONE (16:37)
--- NOTE | 2017-09-29 16:52 | CP.CCUPN ---
CCU Subjective - Physician Review Subjective (Free Text): ICU Admission from ER: no history obtainable from intubated, sedated patient- all available notes in [facility] reviewed: 66M with PMH COPD with emphysema, HTN, smoker, hyperlipidemia, Seizure disorder , and substance abuse, transferred by EMS from home for resp distress and altered mental status, placed on CPAP without improvement and subsequently orally intubated in the field. Presently on Propofol infusion, breathing 20 on AC 20, 500ml, PEEP 5, 100% oxygen, SPo2 100%. Other Vitals and I/Os reviewed. 99.9F temp in ER, highest BP 160/70, HR 117 ROS: No other pertinent negs or positives on 10+ system review Allergies: NKDA Home Meds: Flexeril, Oxycontin, Oxycodone, Fioricet PMSFH: All other Nursing and physician documentation reviewed to date; no new pertinent info noted relevant to current medical problems. EXAM- HEENT: no icterus, no gaze preference, pupils equal and reactive, no icterus NECK: No JVD, supple, carotids equal upstroke bilat/no bruits, R IJV TLC intact. CHEST: crackles with decreased BS bases bilaterally, no wheezes audible HEART: regular distant, S1S2, no rubs. ABD: soft, no distention, no tympany, no palp tenderness, BS hypoactive. EXT: trace edema bilat. No peripheral/ digital cyanosis, no calf tenderness or palpable cords, distal pulses intact and symmetrical. NEURO: no gross focal motor deficits. SKIN: no rashes, warm and dry. LABS: ABG 7.12/88/223 on AC 16, 500 ml, PEEP 5, 100% oxygen Lactate 0.6 Coags: none WBC= 14.5 HGB= 13.7 PLTs= 217K Na= 141 K= 4.2 CL= 101 HCO3= 26 BUN/Cr= 24/0.6 BS= 125 Trop #1 neg CXR: RLL and LLL interstitial changes, as compared to 08/28/17 film (my interp) . EKG: sinus tachy 121 / min, normal axis, T inversion II, III, F (my interp). IMPRESSION / MAJOR PROBLEMS NOW: 1. Acute Hypercapneic, Hypoxemic Resp Failure 2 Bilateral lower lobe pneumonia and Metabolic Encephalopathy 2. COPD / Emphysema 3. Azotemia / Dehydration 4. HTN 5. Opioid Dependency PLAN: 1. MV support, decrease FIo2; and A/C rate to 12. Check repeat ABG, watch for post-hypercapneic resp alkalosis. Duonebs for any wheezing, unless refractory and will start steroids. 2. Check sputum c&s, blood culture. Last hospital admission in Mar 2017 for Pneumonia and Sepsis, empiric Zosyn and Vanco started in ER. Check urine for legionella, mycoplasma titers. Get Pulm eval. 3. IVF hydration. Monitor BP trends for now, anti-HTN meds if MAP above 110. 4. Initial labs do not suggest chronic hypercarbic state, r/o excessive Opioid use. Check UDS. 5. Clarify any Advance Directives, so far none, otherwise Full Code status. 6. See orders. Time spent with this patient did not overlap with any other provider's medical or critical care time. Additionally the code selected for the services rendered in this note includes the time spent:~ talking to the patients family, associated physicians and reviewing hospital data/results not listed here which extended to a total of 45 minutes. CCU Objective - Vital Signs / Intake & Output Vital Signs (Last 4 hours): Vital Signs Temp Pulse Resp BP Pulse Ox 09/29/17 16:45 112 H 20 136/64 99 09/29/17 16:35 112 H 20 125/65 99 09/29/17 16:10 119 H 20 140/70 99 09/29/17 16:00 114 H 20 140/57 L 99 09/29/17 15:50 115 H 19 132/67 99 09/29/17 15:44 118 H 20 179/144 H 99 09/29/17 15:30 117 H 20 161/71 H 100 09/29/17 15:20 114 H 21 156/76 H 99 09/29/17 15:10 116 H 21 144/74 100 09/29/17 15:00 118 H 20 145/73 100 09/29/17 14:50 116 H 20 145/70 98 09/29/17 14:40 118 H 26 H 151/72 H 98 09/29/17 14:33 16 98 09/29/17 14:32 99.9 F H 118 H 16 147/66 98 09/29/17 14:17 121 H 135/66 98 Intake and Output (Last 8hrs): Intake & Output 09/29/17 09/29/17 09/29/17 06:59 14:59 22:59 Intake Total 2 Balance 2 Weight 160 lb Intake: IV 2 - Medications Active Medications: Active Medications Generic Name Dose Route Start Last Admin Trade Name Freq PRN Reason Stop Dose Admin Albuterol/Ipratropium 3 ml 09/29/17 16:45 Duoneb 3 Mg/0.5 Mg (3 Ml) Ud INH RQID LAUREN Sodium Chloride 1,000 mls @ 150 mls/hr 09/29/17 14:18 09/29/17 15:25 Sodium Chloride 0.9% IV 09/29/17 20:57 150 mls/hr .Q6H40M STA Administration Propofol 1,000 mg in 100 mls @ 2.177 mls/hr 09/29/17 15:45 09/29/17 16:06 Diprivan IV 09/30/17 15:37 20 mcg/kg/min .Q24H LAUREN 8.709 mls/hr Protocol Titration 5 MCG/KG/MIN Azithromycin 500 mg/ Sodium 250 mls @ 250 mls/hr 09/29/17 16:30 Chloride IVPB DAILY LAUREN Protocol Ceftriaxone Sodium 1 gm/ 100 mls @ 100 mls/hr 09/29/17 16:30 09/29/17 16:44 Sodium Chloride IVPB 100 mls/hr DAILY LAUREN Administration Protocol Morphine Sulfate 4 mg 09/29/17 16:29 Morphine IVP Q4 PRN Pain, moderate (4-7) Pantoprazole Sodium 40 mg 09/29/17 16:30 Protonix Inj IVP DAILY LAUREN - Patient Studies Lab Studies: Lab Studies 09/29/17 09/29/17 09/29/17 Range/Units 15:20 15:20 15:20 WBC 14.5 H D (4.8-10.8) K/uL RBC 4.34 L (4.40-5.90) Mil/uL Hgb 13.7 (12.0-18.0) g/dL Hct 40.6 (35.0-51.0) % MCV 93.6 (80.0-94.0) fl MCH 31.6 H (27.0-31.0) pg MCHC 33.7 (33.0-37.0) g/dL RDW 14.4 (11.5-14.5) % Plt Count 217 (130-400) K/uL MPV 8.7 (7.2-11.7) fl Neut % (Auto) 91.3 H (50.0-75.0) % Lymph % (Auto) 4.2 L (20.0-40.0) % Bennett % (Auto) 4.2 (0.0-10.0) % Eos % (Auto) 0.1 (0.0-4.0) % Baso % (Auto) 0.2 (0.0-2.0) % Neut # (Auto) 13.2 H (1.8-7.0) K/uL Lymph # (Auto) 0.6 L (1.0-4.3) K/uL Bennett # (Auto) 0.6 (0.0-0.8) K/uL Eos # (Auto) 0.0 (0.0-0.7) K/uL Baso # (Auto) 0.0 (0.0-0.2) K/uL Neutrophils % (Manual) 87 H (42-75) % Band Neutrophils % 2 (0-2) % Lymphocytes % (Manual) 6 L (20-50) % Monocytes % (Manual) 5 (0-10) % Smudge Cells Present Platelet Estimate Normal (NORMAL) Hypochromasia (manual) Slight D-Dimer, Quantitative 992 H (0-230) ng/mlDDU pCO2 (35-45) mm/Hg pO2 (80-100) mm/Hg HCO3 (21-28) mmol/L ABG pH (7.35-7.45) ABG Total CO2 (22-28) mmol/L ABG O2 Saturation (95-98) % ABG Base Excess (-2.0-3.0) mmol/L Kalen Test ABG Potassium (3.6-5.2) mmol/L A-a O2 Difference mm/Hg Sodium 141 (132-148) mmol/L Chloride 101 (98-107) mmol/L Glucose (75-110) mg/dL Lactate (0.7-2.1) mmol/L Vent Mode Mechanical Rate FiO2 % Tidal Volume PEEP Crit Value Called To Crit Value Called By Crit Value Read Back Blood Gas Notified Time Potassium 4.2 (3.6-5.0) MMOL/L Carbon Dioxide 26 (22-30) mmol/L Anion Gap 18 (10-20) BUN 24 H (9-20) mg/dl Creatinine 0.6 L (0.8-1.5) mg/dl Est GFR ( Amer) > 60 Est GFR (Non-Af Amer) > 60 POC Glucose (mg/dL) (65-110) mg/dL Random Glucose 125 H (75-110) mg/dL Calcium 9.2 (8.4-10.2) mg/dL Total Bilirubin 0.4 (0.2-1.3) mg/dl AST 21 (17-59) U/L ALT 35 (21-72) U/L Alkaline Phosphatase 74 (38-126) U/L Troponin I 0.0460 (0.00-0.120) ng/mL Total Protein 6.5 (6.3-8.2) G/DL Albumin 3.5 (3.5-5.0) g/dL Globulin 3.1 (2.2-3.9) gm/dL Albumin/Globulin Ratio 1.1 (1.0-2.1) Arterial Blood Potassium (3.6-5.2) mmol/L Urine Color (YELLOW) Urine Clarity (Clear) Urine pH (5.0-8.0) Ur Specific [place] (1.003-1.030) Urine Protein (NEGATIVE) mg/dL Urine Glucose (UA) (Normal) mg/dL Urine Ketones (NEGATIVE) mg/dL Urine Blood (NEGATIVE) Urine Nitrate (NEGATIVE) Urine Bilirubin (NEGATIVE) Urine Urobilinogen (0.2-1.0) mg/dL Ur Leukocyte Esterase (Negative) Leighton/uL Urine RBC (Auto) (0-3) /hpf Urine Microscopic WBC (0-5) /hpf Ur Squamous Epith Cells (0-5) /hpf Amorphous Sediment (<OCC) /ul 09/29/17 09/29/17 09/29/17 Range/Units 15:00 14:29 14:19 WBC (4.8-10.8) K/uL RBC (4.40-5.90) Mil/uL Hgb (12.0-18.0) g/dL Hct (35.0-51.0) % MCV (80.0-94.0) fl MCH (27.0-31.0) pg MCHC (33.0-37.0) g/dL RDW (11.5-14.5) % Plt Count (130-400) K/uL MPV (7.2-11.7) fl Neut % (Auto) (50.0-75.0) % Lymph % (Auto) (20.0-40.0) % Bennett % (Auto) (0.0-10.0) % Eos % (Auto) (0.0-4.0) % Baso % (Auto) (0.0-2.0) % Neut # (Auto) (1.8-7.0) K/uL Lymph # (Auto) (1.0-4.3) K/uL Bennett # (Auto) (0.0-0.8) K/uL Eos # (Auto) (0.0-0.7) K/uL Baso # (Auto) (0.0-0.2) K/uL Neutrophils % (Manual) (42-75) % Band Neutrophils % (0-2) % Lymphocytes % (Manual) (20-50) % Monocytes % (Manual) (0-10) % Smudge Cells Platelet Estimate (NORMAL) Hypochromasia (manual) D-Dimer, Quantitative (0-230) ng/mlDDU pCO2 88 H* (35-45) mm/Hg pO2 223 H (80-100) mm/Hg HCO3 22.6 (21-28) mmol/L ABG pH 7.12 L* (7.35-7.45) ABG Total CO2 31.3 H (22-28) mmol/L ABG O2 Saturation 100.3 H (95-98) % ABG Base Excess -3.1 L (-2.0-3.0) mmol/L Kalen Test Yes ABG Potassium 3.7 (3.6-5.2) mmol/L A-a O2 Difference 380.0 mm/Hg Sodium 132.0 (132-148) mmol/L Chloride 104.0 (98-107) mmol/L Glucose 137 H (75-110) mg/dL Lactate 0.6 L (0.7-2.1) mmol/L Vent Mode Prvc/ac Mechanical Rate 16 FiO2 100.0 % Tidal Volume 500 PEEP 5 Crit Value Called To janey Summers Crit Value Called By 22 Crit Value Read Back Y Blood Gas Notified Time 1436 Potassium (3.6-5.0) MMOL/L Carbon Dioxide (22-30) mmol/L Anion Gap (10-20) BUN (9-20) mg/dl Creatinine (0.8-1.5) mg/dl Est GFR ( Amer) Est GFR (Non-Af Amer) POC Glucose (mg/dL) 123 H (65-110) mg/dL Random Glucose (75-110) mg/dL Calcium (8.4-10.2) mg/dL Total Bilirubin (0.2-1.3) mg/dl AST (17-59) U/L ALT (21-72) U/L Alkaline Phosphatase (38-126) U/L Troponin I (0.00-0.120) ng/mL Total Protein (6.3-8.2) G/DL Albumin (3.5-5.0) g/dL Globulin (2.2-3.9) gm/dL Albumin/Globulin Ratio (1.0-2.1) Arterial Blood Potassium 3.7 (3.6-5.2) mmol/L Urine Color Yellow (YELLOW) Urine Clarity Slight-cloudy (Clear) Urine pH 6.0 (5.0-8.0) Ur Specific [place] > 1.030 H (1.003-1.030) Urine Protein > 300 (NEGATIVE) mg/dL Urine Glucose (UA) Negative (Normal) mg/dL Urine Ketones Negative (NEGATIVE) mg/dL Urine Blood Moderate (NEGATIVE) Urine Nitrate Negative (NEGATIVE) Urine Bilirubin Negative (NEGATIVE) Urine Urobilinogen 0.2 (0.2-1.0) mg/dL Ur Leukocyte Esterase Negative (Negative) Leighton/uL Urine RBC (Auto) 2 (0-3) /hpf Urine Microscopic WBC 0 (0-5) /hpf Ur Squamous Epith Cells 3 (0-5) /hpf Amorphous Sediment Moderate H (<OCC) /ul Laboratory Results - last 24 hr 09/29/17 09/29/17 09/29/17 14:19 14:29 15:00 WBC RBC Hgb Hct MCV MCH MCHC RDW Plt Count MPV Neut % (Auto) Lymph % (Auto) Bennett % (Auto) Eos % (Auto) Baso % (Auto) Neut # (Auto) Lymph # (Auto) Bennett # (Auto) Eos # (Auto) Baso # (Auto) Neutrophils % (Manual) Band Neutrophils % Lymphocytes % (Manual) Monocytes % (Manual) Smudge Cells Platelet Estimate Hypochromasia (manual) D-Dimer, Quantitative pCO2 88 H* pO2 223 H HCO3 22.6 ABG pH 7.12 L* ABG Total CO2 31.3 H ABG O2 Saturation 100.3 H ABG Base Excess -3.1 L Kalen Test Yes ABG Potassium 3.7 A-a O2 Difference 380.0 Sodium 132.0 Chloride 104.0 Glucose 137 H Lactate 0.6 L Vent Mode Prvc/ac Mechanical Rate 16 FiO2 100.0 Tidal Volume 500 PEEP 5 Crit Value Called To janey Summers Crit Value Called By 22 Crit Value Read Back Y Blood Gas Notified Time 1436 Potassium Carbon Dioxide Anion Gap BUN Creatinine Est GFR ( Amer) Est GFR (Non-Af Amer) POC Glucose (mg/dL) 123 H Random Glucose Calcium Total Bilirubin AST ALT Alkaline Phosphatase Troponin I Total Protein Albumin Globulin Albumin/Globulin Ratio Arterial Blood Potassium 3.7 Urine Color Yellow Urine Clarity Slight-cloudy Urine pH 6.0 Ur Specific [place] > 1.030 H Urine Protein > 300 Urine Glucose (UA) Negative Urine Ketones Negative Urine Blood Moderate Urine Nitrate Negative Urine Bilirubin Negative Urine Urobilinogen 0.2 Ur Leukocyte Esterase Negative Urine RBC (Auto) 2 Urine Microscopic WBC 0 Ur Squamous Epith Cells 3 Amorphous Sediment Moderate H 09/29/17 09/29/17 09/29/17 15:20 15:20 15:20 WBC 14.5 H D RBC 4.34 L Hgb 13.7 Hct 40.6 MCV 93.6 MCH 31.6 H MCHC 33.7 RDW 14.4 Plt Count 217 MPV 8.7 Neut % (Auto) 91.3 H Lymph % (Auto) 4.2 L Bennett % (Auto) 4.2 Eos % (Auto) 0.1 Baso % (Auto) 0.2 Neut # (Auto) 13.2 H Lymph # (Auto) 0.6 L Bennett # (Auto) 0.6 Eos # (Auto) 0.0 Baso # (Auto) 0.0 Neutrophils % (Manual) 87 H Band Neutrophils % 2 Lymphocytes % (Manual) 6 L Monocytes % (Manual) 5 Smudge Cells Present Platelet Estimate Normal Hypochromasia (manual) Slight D-Dimer, Quantitative 992 H pCO2 pO2 HCO3 ABG pH ABG Total CO2 ABG O2 Saturation ABG Base Excess Kalen Test ABG Potassium A-a O2 Difference Sodium 141 Chloride 101 Glucose Lactate Vent Mode Mechanical Rate FiO2 Tidal Volume PEEP Crit Value Called To Crit Value Called By Crit Value Read Back Blood Gas Notified Time Potassium 4.2 Carbon Dioxide 26 Anion Gap 18 BUN 24 H Creatinine 0.6 L Est GFR ( Amer) > 60 Est GFR (Non-Af Amer) > 60 POC Glucose (mg/dL) Random Glucose 125 H Calcium 9.2 Total Bilirubin 0.4 AST 21 ALT 35 Alkaline Phosphatase 74 Troponin I 0.0460 Total Protein 6.5 Albumin 3.5 Globulin 3.1 Albumin/Globulin Ratio 1.1 Arterial Blood Potassium Urine Color Urine Clarity Urine pH Ur Specific [place] Urine Protein Urine Glucose (UA) Urine Ketones Urine Blood Urine Nitrate Urine Bilirubin Urine Urobilinogen Ur Leukocyte Esterase Urine RBC (Auto) Urine Microscopic WBC Ur Squamous Epith Cells Amorphous Sediment EKG/Cardiology Studies: Cardiology / EKG Studies 09/29/17 14:16 ELECTROCARDIOGRAM Stat Comment: Mode Of Transportation: Reason For Exam: resp failure 09/30/17 09:00 EKG [ELECTROCARDIOGRAM] DAILY Mode Of Transportation: Reason For Exam: r/o AMI Comment: Fingerstick Blood Sugar Results: 123 Critical Care Progress Note - Ventilator Checklist Head of Bed 30 Degrees: Yes Daily Sedation Vacation: No (just intubated) Daily Assessment of Readiness to Wean: No (just intubated) Daily Spontaneous Breathing Trial: No (just intubated) PUD Prophalyxis: Yes DVT Prophylaxis: Yes Oral Care with Chlorhexidine Gluconate {CHG}: Yes - Vent Settings MODE:: ASSIST CONTROL TIDAL VOLUME:: 500 RESP RATE:: 12 FIO2:: 50 PEEP:: 5 - Extremities/Vascular Does the Patient have a Central Venous Catheter?: Yes Insertion Site: Internal Jugular Vein Does the Patient need a Central Venous Catheter?: Yes Does the Patient have a Rowell Catheter?: Yes Does the Patient need a Rowell Catheter?: Yes Catheter Insertion Criteria: Need for accurate measurement of output in critically ill patient - Restraints Justification for Restraints: High risk for self extubation, High risk for removing IV access, High risk for harming self - Prophylaxis GI Prophylaxis GI: PPI - Prophylaxis DVT Prophylaxis DVT: SCDs
[2017-09-29] MEDS: Azithromycin 500 MG in Sodium Chloride 0.9% 250 ML IVPB SCH (18:06)
[2017-09-29] MEDS ORDERED: Pneumococcal 23-Valent Vaccine IM ONE (18:23)
[2017-09-29 18:49] LABS: BARBITURATES, UR NEGATIVE (NEGATIVE); PHENCYCLIDINE, UR NEGATIVE (NEGATIVE)
[2017-09-29 18:50] LABS: BENZODIAZEPINES, UR NEGATIVE (NEGATIVE); OPIATES, UR POSITIVE (NEGATIVE)
[2017-09-29] MEDS: Albuterol-Ipratrop 3 mg / 0.5 (3 ml) UD INH SCH ×2 (19:33→19:35)
[2017-09-29] MEDS: Sodium Chloride 0.9% 1,000 ML IV SCH (21:20)
[2017-09-30] MEDS: Propofol 10 mg/ml 1,000 MG/100 ML VIAL IV SCH (03:29)
[2017-09-30] MEDS: Sodium Chloride 0.9% 1,000 ML IV SCH ×3 (03:30→17:32)
[2017-09-30] MEDS ORDERED: Albuterol-Ipratrop 3 mg / 0.5 (3 ml) UD INH STA (03:52)
--- NOTE | 2017-09-30 03:55 | CP.PCM.PN ---
Subjective - Date & Time of Evaluation Date of Evaluation: 09/30/17 Time of Evaluation: 03:55 Objective - Vital Signs/Intake and Output Vital Signs (last 24 hours): Temp Pulse Resp BP Pulse Ox 99.6 F 96 H 16 117/58 L 97 09/30/17 00:00 09/30/17 03:00 09/30/17 03:00 09/30/17 03:00 09/30/17 03:00 Intake and Output: 09/29/17 09/30/17 18:59 06:59 Intake Total 252 1648 Output Total 500 50 Balance -248 1598 - Medications Medications: Current Medications Albuterol/Ipratropium (Duoneb 3 Mg/0.5 Mg (3 Ml) Ud) 3 ml INH RQID [facility] Last Admin: 09/29/17 19:35 Dose: 3 ml Propofol (Diprivan) 1,000 mg in 100 mls @ 2.177 mls/hr IV .Q24H LAUREN; 5 MCG/KG/ MIN PRN Reason: Protocol Stop: 09/30/17 15:37 Last Admin: 09/30/17 03:29 Dose: 50 mcg/kg/min, 21.773 mls/hr Azithromycin 500 mg/ Sodium (Chloride) 250 mls @ 250 mls/hr IVPB DAILY LAUREN PRN Reason: Protocol Last Admin: 09/29/17 18:06 Dose: 250 mls/hr Ceftriaxone Sodium 1 gm/ (Sodium Chloride) 100 mls @ 100 mls/hr IVPB DAILY LAUREN PRN Reason: Protocol Last Admin: 09/29/17 16:44 Dose: 100 mls/hr Sodium Chloride (Sodium Chloride 0.9%) 1,000 mls @ 150 mls/hr IV .Q6H40M [facility] Stop: 09/30/17 20:51 Last Admin: 09/30/17 03:30 Dose: 150 mls/hr Morphine Sulfate (Morphine) 4 mg IVP Q4 PRN PRN Reason: Pain, moderate (4-7) Pantoprazole Sodium (Protonix Inj) 40 mg IVP DAILY [facility] Last Admin: 09/29/17 21:53 Dose: 40 mg - Labs Labs: 09/29/17 15:20 09/29/17 15:20
[2017-09-30 04:08] LABS: ABG ALLEN TEST YES; ARTERIAL BLOOD GAS HCO3 25.4 mmol/L (21-28); ARTERIAL BLOOD GAS HEMOGLOBIN 12.1 g/dL (11.7-17.4); ARTERIAL BLOOD GAS O2 CAPACITY 16.5 mL/dL (16-24); ARTERIAL BLOOD GAS O2 CONTENT 15.6 ML/dL (15-23); ARTERIAL BLOOD GAS O2 SAT 94.6 % (95-98); ARTERIAL BLOOD GAS PCO2 54 mm/Hg (35-45); ARTERIAL BLOOD GAS PH 7.32 (7.35-7.45); ARTERIAL BLOOD GAS PO2 61 mm/Hg (80-100); ARTERIAL BLOOD GAS TCO2 29.5 mmol/L (22-28)
[2017-09-30 04:26] LABS: VENOUS BLOOD GAS BASE EXCESS 0.8 mmol/L (0.0-2.0); VENOUS BLOOD GAS PCO2 49 mmHg (40-60); VENOUS BLOOD GAS PO2 57 mm/Hg (30-55); VENOUS BLOOD PH 7.35 (7.32-7.43)
[2017-09-30 05:30] LABS: BASO % 0.2 % (0.0-2.0); EOS % 0.1 % (0.0-4.0); HEMOGLOBIN 11.7 g/dL (12.0-18.0); LYMPH # 1.1 K/uL (1.0-4.3); LYMPH % 8.3 % (20.0-40.0); MEAN CELL VOLUME 94.2 fl (80.0-94.0); MEAN CORPUSCULAR HEMOGLOBIN 30.9 pg (27.0-31.0); MEAN CORPUSCULAR HGB CONC 32.8 g/dL (33.0-37.0); MEAN PLATELET VOLUME 9.2 fl (7.2-11.7); MONO # 0.9 K/uL (0.0-0.8); MONO % 6.7 % (0.0-10.0); NEUT # 10.9 K/uL (1.8-7.0); NEUT % 84.7 % (50.0-75.0); RBC 3.78 Mil/uL (4.40-5.90); RED CELL DISTRIBUTION WIDTH 14.9 % (11.5-14.5); WHITE BLOOD COUNT 12.9 K/uL (4.8-10.8)
[2017-09-30 05:39] LABS: ALBUMIN 2.9 g/dL (3.5-5.0); ALT/SGPT 33 U/L (21-72); AST/SGOT 11 U/L (17-59); BLOOD UREA NITROGEN 15 mg/dl (9-20); CALCIUM 8.8 mg/dL (8.4-10.2); GFR AFRICAN-AMERICAN > 60; GFR NON-AFRICAN AMERICAN > 60
[2017-09-30 05:44] LABS: INR 1.3 (0.9-1.2); PROTHROMBIN TIME 14.1 Seconds (9.8-13.1)
[2017-09-30 05:45] LABS: PARTIAL THROMBOPLASTIN TIME 35.2 Seconds (25.6-37.1)
--- NOTE | 2017-09-30 07:46 | RAD ---
HISTORY: intubated COMPARISON: Frontal chest radiographs 09/29/2017. FINDINGS: Endotracheal tube appears to been removed. Clinically correlate. Right center venous lines in place by an apparent right internal jugular approach with tip terminating at the cavoatrial junction. LUNGS: Diminishing infiltrate left lower lobe with minimal residual noted. Medial right basilar infiltrate appears slightly improved as well. No interval new infiltrate. PLEURA: No significant pleural effusion identified, no pneumothorax apparent. CARDIOVASCULAR: Normal. OSSEOUS STRUCTURES: Old healed right rib fractures again evident. VISUALIZED UPPER ABDOMEN: Normal. OTHER FINDINGS: None. IMPRESSION: Improving bilateral infiltrates, particularly at the left base. Right center venous line in position as discussed above with apparent removal of prior endotracheal tube. Clinically correlate. No pneumothorax bilaterally.
[2017-09-30] MEDS: Albuterol-Ipratrop 3 mg / 0.5 (3 ml) UD INH SCH ×4 (08:14→19:26)
--- NOTE | 2017-09-30 10:39 | CP.CCUPN ---
CCU Subjective - Physician Review Subjective (Free Text): Awake alert and appropriately responsive to simple verbal commands, no distress now on BiPAP after self extubating this AM. Generating approx. 627 ml TV on current IPAP of 14 / EPAP 6. Other Vitals and I/Os reviewed. He is 1.25L positive last 12H since hospital admission. ROS: No other pertinent negs or positives on 10+ system review PMSFH: All other Nursing and physician documentation reviewed to date; no new pertinent info noted relevant to current medical problems. EXAM- HEENT: no icterus, no gaze preference, pupils equal and reactive, no icterus, absent gag NECK: No JVD, supple, carotids equal upstroke bilat/no bruits, R IJV TLC intact. CHEST: crackles with decreased BS bases bilaterally, no wheezes audible HEART: regular distant, S1S2, no rubs. ABD: soft, no distention, no tympany, no palp tenderness, BS hypoactive. EXT: trace edema bilat. No peripheral/ digital cyanosis, no calf tenderness or palpable cords, distal pulses intact and symmetrical. NEURO: no gross focal motor deficits. SKIN: no rashes, warm and dry. LABS: 7.32/54/61 Lactate 0.9 Coags: INR= 1.3 WBC= 12.9 HGB= 11.7 PLTs= 182 K Na= 142 K= 3.9 CL= 105 HCO3= 26 BUN/Cr= 15/0.5 BS= 80 Trop #1, #2 neg IMPRESSION / MAJOR PROBLEMS NOW: 1. Acute Hypercapneic, Hypoxemic Resp Failure 2 Bilateral lower lobe pneumonia and Metabolic Encephalopathy 2. COPD / Emphysema 3. Azotemia / Dehydration 4. HTN 5. Opioid Dependency PLAN: 1. PCO2 levels improved, but not back to baseline yet. BiPAP support as tolerated, serial ABGs. 2. Consider Pulm eval, on Duonebs, empiric Rocephin and Azithromycin. 3. Dysphagia eval. Loss of gag 2 previous intubation and self-extubation? Voice is hoarse too. May need ENT eval. 4. Watch serial HGb levels, 13.7 to 11.7 after IV hydration. CCU Objective - Vital Signs / Intake & Output Vital Signs (Last 4 hours): Vital Signs Temp Pulse Resp BP Pulse Ox 09/30/17 08:01 92 H 09/30/17 08:00 98 F 93 H 21 138/66 100 Intake and Output (Last 8hrs): Intake & Output 09/29/17 09/30/17 09/30/17 22:59 06:59 14:59 Intake Total 1151 1354 Output Total 550 700 Balance 601 654 Intake: IV 901 1354 Intake, Piggyback 250 Output: Urine 500 700 Urethral ([place]) 500 700 Emesis 50 - Medications Active Medications: Active Medications Generic Name Dose Route Start Last Admin Trade Name Freq PRN Reason Stop Dose Admin Albuterol/Ipratropium 3 ml 09/29/17 16:45 09/30/17 08:14 Duoneb 3 Mg/0.5 Mg (3 Ml) Ud INH 3 ml RQID LAUREN Administration Propofol 1,000 mg in 100 mls @ 2.177 mls/hr 09/29/17 15:45 09/30/17 03:59 Diprivan IV 09/30/17 15:37 0 mcg/kg/min .Q24H LAUREN 0 mls/hr Protocol Titration 5 MCG/KG/MIN Azithromycin 500 mg/ Sodium 250 mls @ 250 mls/hr 09/29/17 16:30 09/29/17 18: 06 Chloride IVPB 250 mls/hr DAILY LAUREN Administration Protocol Ceftriaxone Sodium 1 gm/ 100 mls @ 100 mls/hr 09/29/17 16:30 09/29/17 16:44 Sodium Chloride IVPB 100 mls/hr DAILY LAUREN Administration Protocol Sodium Chloride 1,000 mls @ 150 mls/hr 09/29/17 21:00 09/30/17 03:30 Sodium Chloride 0.9% IV 09/30/17 20:51 150 mls/hr .[id number] LAUREN Administration Morphine Sulfate 4 mg 09/29/17 16:29 Morphine IVP Q4 PRN Pain, moderate (4-7) Pantoprazole Sodium 40 mg 09/29/17 16:30 09/30/17 08:49 Protonix Inj IVP 40 mg DAILY LAUREN Administration - Patient Studies Lab Studies: Lab Studies 09/30/17 09/30/17 09/30/17 Range/Units 04:22 04:20 04:20 WBC (4.8-10.8) K/uL RBC (4.40-5.90) Mil/uL Hgb (12.0-18.0) g/dL Hct (35.0-51.0) % MCV (80.0-94.0) fl MCH (27.0-31.0) pg MCHC (33.0-37.0) g/dL RDW (11.5-14.5) % Plt Count (130-400) K/uL MPV (7.2-11.7) fl Neut % (Auto) (50.0-75.0) % Lymph % (Auto) (20.0-40.0) % Garden % (Auto) (0.0-10.0) % Eos % (Auto) (0.0-4.0) % Baso % (Auto) (0.0-2.0) % Neut # (Auto) (1.8-7.0) K/uL Lymph # (Auto) (1.0-4.3) K/uL [place] # (Auto) (0.0-0.8) K/uL Eos # (Auto) (0.0-0.7) K/uL Baso # (Auto) (0.0-0.2) K/uL Neutrophils % (Manual) (42-75) % Band Neutrophils % (0-2) % Lymphocytes % (Manual) (20-50) % Monocytes % (Manual) (0-10) % Smudge Cells Platelet Estimate (NORMAL) Hypochromasia (manual) PT 14.1 H (9.8-13.1) Seconds INR 1.3 H (0.9-1.2) APTT 35.2 (25.6-37.1) Seconds D-Dimer, Quantitative (0-230) ng/mlDDU pCO2 (35-45) mm/Hg pO2 57 H (80-100) mm/Hg HCO3 (21-28) mmol/L ABG pH (7.35-7.45) ABG Total CO2 (22-28) mmol/L ABG O2 Saturation (95-98) % ABG O2 Content (15-23) ML/dL ABG Base Excess (-2.0-3.0) mmol/L ABG Hemoglobin (11.7-17.4) g/dL ABG Carboxyhemoglobin (0.5-1.5) % POC ABG HHb (Measured) (0.0-5.0) % ABG Methemoglobin (0.0-3.0) % ABG O2 Capacity (16-24) mL/dL [place] Test ABG Potassium (3.6-5.2) mmol/L VBG pH 7.35 (7.32-7.43) VBG pCO2 49 (40-60) mmHg VBG HCO3 25.3 mmol/L VBG Total CO2 28.6 H (22-28) mmol/L VBG O2 Sat (Calc) 93.3 H (40-65) % VBG Base Excess 0.8 (0.0-2.0) mmol/L VBG Potassium 3.8 (3.6-5.2) mmol/L A-a O2 Difference mm/Hg Hgb O2 Saturation (95.0-98.0) % Sodium 138.0 142 (132-148) mmol/L Chloride 108.0 H 105 (98-107) mmol/L Glucose 85 (75-110) mg/dL Lactate 0.9 (0.7-2.1) mmol/L Vent Mode Mechanical Rate FiO2 50.0 % Tidal Volume PEEP Crit Value Called To Crit Value Called By Crit Value Read Back Blood Gas Notified Time Potassium 3.9 (3.6-5.0) MMOL/L Carbon Dioxide 26 (22-30) mmol/L Anion Gap 15 (10-20) BUN 15 (9-20) mg/dl Creatinine 0.5 L (0.8-1.5) mg/dl Est GFR ( Amer) > 60 Est GFR (Non-Af Amer) > 60 POC Glucose (mg/dL) (65-110) mg/dL Random Glucose 80 (75-110) mg/dL Calcium 8.8 (8.4-10.2) mg/dL Total Bilirubin 0.4 (0.2-1.3) mg/dl AST 11 L D (17-59) U/L ALT 33 (21-72) U/L Alkaline Phosphatase 63 (38-126) U/L Troponin I (0.00-0.120) ng/mL Total Protein 5.7 L (6.3-8.2) G/DL Albumin 2.9 L (3.5-5.0) g/dL Globulin 2.8 (2.2-3.9) gm/dL Albumin/Globulin Ratio 1.0 (1.0-2.1) Arterial Blood Potassium (3.6-5.2) mmol/L Venous Blood Potassium 3.8 (3.6-5.2) mmol/L Urine Color (YELLOW) Urine Clarity (Clear) Urine pH (5.0-8.0) Ur Specific [place] (1.003-1.030) Urine Protein (NEGATIVE) mg/dL Urine Glucose (UA) (Normal) mg/dL Urine Ketones (NEGATIVE) mg/dL Urine Blood (NEGATIVE) Urine Nitrate (NEGATIVE) Urine Bilirubin (NEGATIVE) Urine Urobilinogen (0.2-1.0) mg/dL Ur Leukocyte Esterase (Negative) [place]/uL Urine RBC (Auto) (0-3) /hpf Urine Microscopic WBC (0-5) /hpf Ur Squamous Epith Cells (0-5) /hpf Amorphous Sediment (<OCC) /ul Urine Opiates Screen (NEGATIVE) Urine Methadone Screen (NEGATIVE) Ur Barbiturates Screen (NEGATIVE) Ur Phencyclidine Scrn (NEGATIVE) Ur Amphetamines Screen (NEGATIVE) U Benzodiazepines Scrn (NEGATIVE) U Oth Cocaine Metabols (NEGATIVE) U Cannabinoids Screen (NEGATIVE) 09/30/17 09/30/17 09/30/17 Range/Units 04:20 04:05 00:30 WBC 12.9 H (4.8-10.8) K/uL RBC 3.78 L (4.40-5.90) Mil/uL Hgb 11.7 L D (12.0-18.0) g/dL Hct 35.6 (35.0-51.0) % MCV 94.2 H (80.0-94.0) fl MCH 30.9 (27.0-31.0) pg MCHC 32.8 L (33.0-37.0) g/dL RDW 14.9 H (11.5-14.5) % Plt Count 182 (130-400) K/uL MPV 9.2 (7.2-11.7) fl Neut % (Auto) 84.7 H (50.0-75.0) % Lymph % (Auto) 8.3 L (20.0-40.0) % Garden % (Auto) 6.7 (0.0-10.0) % Eos % (Auto) 0.1 (0.0-4.0) % Baso % (Auto) 0.2 (0.0-2.0) % Neut # (Auto) 10.9 H (1.8-7.0) K/uL Lymph # (Auto) 1.1 (1.0-4.3) K/uL [place] # (Auto) 0.9 H (0.0-0.8) K/uL Eos # (Auto) 0.0 (0.0-0.7) K/uL Baso # (Auto) 0.0 (0.0-0.2) K/uL Neutrophils % (Manual) (42-75) % Band Neutrophils % (0-2) % Lymphocytes % (Manual) (20-50) % Monocytes % (Manual) (0-10) % Smudge Cells Platelet Estimate (NORMAL) Hypochromasia (manual) PT (9.8-13.1) Seconds INR (0.9-1.2) APTT (25.6-37.1) Seconds D-Dimer, Quantitative (0-230) ng/mlDDU pCO2 54 H (35-45) mm/Hg pO2 61 L (80-100) mm/Hg HCO3 25.4 (21-28) mmol/L ABG pH 7.32 L (7.35-7.45) ABG Total CO2 29.5 H (22-28) mmol/L ABG O2 Saturation 94.6 L (95-98) % ABG O2 Content 15.6 (15-23) ML/dL ABG Base Excess 0.8 (-2.0-3.0) mmol/L ABG Hemoglobin 12.1 (11.7-17.4) g/dL ABG Carboxyhemoglobin 1.8 H (0.5-1.5) % POC ABG HHb (Measured) 5.2 H (0.0-5.0) % ABG Methemoglobin 1.1 (0.0-3.0) % ABG O2 Capacity 16.5 (16-24) mL/dL [place] Test Yes ABG Potassium (3.6-5.2) mmol/L VBG pH (7.32-7.43) VBG pCO2 (40-60) mmHg VBG HCO3 mmol/L VBG Total CO2 (22-28) mmol/L VBG O2 Sat (Calc) (40-65) % VBG Base Excess (0.0-2.0) mmol/L VBG Potassium (3.6-5.2) mmol/L A-a O2 Difference 228.0 mm/Hg Hgb O2 Saturation 91.9 L (95.0-98.0) % Sodium (132-148) mmol/L Chloride (98-107) mmol/L Glucose (75-110) mg/dL Lactate (0.7-2.1) mmol/L Vent Mode Mechanical Rate FiO2 50.0 % Tidal Volume PEEP Crit Value Called To Crit Value Called By Crit Value Read Back Blood Gas Notified Time Potassium (3.6-5.0) MMOL/L Carbon Dioxide (22-30) mmol/L Anion Gap (10-20) BUN (9-20) mg/dl Creatinine (0.8-1.5) mg/dl Est GFR ( Amer) Est GFR (Non-Af Amer) POC Glucose (mg/dL) (65-110) mg/dL Random Glucose (75-110) mg/dL Calcium (8.4-10.2) mg/dL Total Bilirubin (0.2-1.3) mg/dl AST (17-59) U/L ALT (21-72) U/L Alkaline Phosphatase (38-126) U/L Troponin I 0.0500 (0.00-0.120) ng/mL Total Protein (6.3-8.2) G/DL Albumin (3.5-5.0) g/dL Globulin (2.2-3.9) gm/dL Albumin/Globulin Ratio (1.0-2.1) Arterial Blood Potassium (3.6-5.2) mmol/L Venous Blood Potassium (3.6-5.2) mmol/L Urine Color (YELLOW) Urine Clarity (Clear) Urine pH (5.0-8.0) Ur Specific [place] (1.003-1.030) Urine Protein (NEGATIVE) mg/dL Urine Glucose (UA) (Normal) mg/dL Urine Ketones (NEGATIVE) mg/dL Urine Blood (NEGATIVE) Urine Nitrate (NEGATIVE) Urine Bilirubin (NEGATIVE) Urine Urobilinogen (0.2-1.0) mg/dL Ur Leukocyte Esterase (Negative) [place]/uL Urine RBC (Auto) (0-3) /hpf Urine Microscopic WBC (0-5) /hpf Ur Squamous Epith Cells (0-5) /hpf Amorphous Sediment (<OCC) /ul Urine Opiates Screen (NEGATIVE) Urine Methadone Screen (NEGATIVE) Ur Barbiturates Screen (NEGATIVE) Ur Phencyclidine Scrn (NEGATIVE) Ur Amphetamines Screen (NEGATIVE) U Benzodiazepines Scrn (NEGATIVE) U Oth Cocaine Metabols (NEGATIVE) U Cannabinoids Screen (NEGATIVE) 09/29/17 09/29/17 09/29/17 Range/Units 17:00 15:20 15:20 WBC (4.8-10.8) K/uL RBC (4.40-5.90) Mil/uL Hgb (12.0-18.0) g/dL Hct (35.0-51.0) % MCV (80.0-94.0) fl MCH (27.0-31.0) pg MCHC (33.0-37.0) g/dL RDW (11.5-14.5) % Plt Count (130-400) K/uL MPV (7.2-11.7) fl Neut % (Auto) (50.0-75.0) % Lymph % (Auto) (20.0-40.0) % [place] % (Auto) (0.0-10.0) % Eos % (Auto) (0.0-4.0) % Baso % (Auto) (0.0-2.0) % Neut # (Auto) (1.8-7.0) K/uL Lymph # (Auto) (1.0-4.3) K/uL [place] # (Auto) (0.0-0.8) K/uL Eos # (Auto) (0.0-0.7) K/uL Baso # (Auto) (0.0-0.2) K/uL Neutrophils % (Manual) (42-75) % Band Neutrophils % (0-2) % Lymphocytes % (Manual) (20-50) % Monocytes % (Manual) (0-10) % Smudge Cells Platelet Estimate (NORMAL) Hypochromasia (manual) PT (9.8-13.1) Seconds INR (0.9-1.2) APTT (25.6-37.1) Seconds D-Dimer, Quantitative 992 H (0-230) ng/mlDDU pCO2 (35-45) mm/Hg pO2 (80-100) mm/Hg HCO3 (21-28) mmol/L ABG pH (7.35-7.45) ABG Total CO2 (22-28) mmol/L ABG O2 Saturation (95-98) % ABG O2 Content (15-23) ML/dL ABG Base Excess (-2.0-3.0) mmol/L ABG Hemoglobin (11.7-17.4) g/dL ABG Carboxyhemoglobin (0.5-1.5) % POC ABG HHb (Measured) (0.0-5.0) % ABG Methemoglobin (0.0-3.0) % ABG O2 Capacity (16-24) mL/dL [place] Test ABG Potassium (3.6-5.2) mmol/L VBG pH (7.32-7.43) VBG pCO2 (40-60) mmHg VBG HCO3 mmol/L VBG Total CO2 (22-28) mmol/L VBG O2 Sat (Calc) (40-65) % VBG Base Excess (0.0-2.0) mmol/L VBG Potassium (3.6-5.2) mmol/L A-a O2 Difference mm/Hg Hgb O2 Saturation (95.0-98.0) % Sodium 141 (132-148) mmol/L Chloride 101 (98-107) mmol/L Glucose (75-110) mg/dL Lactate (0.7-2.1) mmol/L Vent Mode Mechanical Rate FiO2 % Tidal Volume PEEP Crit Value Called To Crit Value Called By Crit Value Read Back Blood Gas Notified Time Potassium 4.2 (3.6-5.0) MMOL/L Carbon Dioxide 26 (22-30) mmol/L Anion Gap 18 (10-20) BUN 24 H (9-20) mg/dl Creatinine 0.6 L (0.8-1.5) mg/dl Est GFR ( Amer) > 60 Est GFR (Non-Af Amer) > 60 POC Glucose (mg/dL) (65-110) mg/dL Random Glucose 125 H (75-110) mg/dL Calcium 9.2 (8.4-10.2) mg/dL Total Bilirubin 0.4 (0.2-1.3) mg/dl AST 21 (17-59) U/L ALT 35 (21-72) U/L Alkaline Phosphatase 74 (38-126) U/L Troponin I 0.0460 (0.00-0.120) ng/mL Total Protein 6.5 (6.3-8.2) G/DL Albumin 3.5 (3.5-5.0) g/dL Globulin 3.1 (2.2-3.9) gm/dL Albumin/Globulin Ratio 1.1 (1.0-2.1) Arterial Blood Potassium (3.6-5.2) mmol/L Venous Blood Potassium (3.6-5.2) mmol/L Urine Color (YELLOW) Urine Clarity (Clear) Urine pH (5.0-8.0) Ur Specific [place] (1.003-1.030) Urine Protein (NEGATIVE) mg/dL Urine Glucose (UA) (Normal) mg/dL Urine Ketones (NEGATIVE) mg/dL Urine Blood (NEGATIVE) Urine Nitrate (NEGATIVE) Urine Bilirubin (NEGATIVE) Urine Urobilinogen (0.2-1.0) mg/dL Ur Leukocyte Esterase (Negative) [place]/uL Urine RBC (Auto) (0-3) /hpf Urine Microscopic WBC (0-5) /hpf Ur Squamous Epith Cells (0-5) /hpf Amorphous Sediment (<OCC) /ul Urine Opiates Screen Positive H (NEGATIVE) Urine Methadone Screen Negative (NEGATIVE) Ur Barbiturates Screen Negative (NEGATIVE) Ur Phencyclidine Scrn Negative (NEGATIVE) Ur Amphetamines Screen Negative (NEGATIVE) U Benzodiazepines Scrn Negative (NEGATIVE) U Oth Cocaine Metabols Negative (NEGATIVE) U Cannabinoids Screen Negative (NEGATIVE) 09/29/17 09/29/17 09/29/17 Range/Units 15:20 15:00 14:29 WBC 14.5 H D (4.8-10.8) K/uL RBC 4.34 L (4.40-5.90) Mil/uL Hgb 13.7 (12.0-18.0) g/dL Hct 40.6 (35.0-51.0) % MCV 93.6 (80.0-94.0) fl MCH 31.6 H (27.0-31.0) pg MCHC 33.7 (33.0-37.0) g/dL RDW 14.4 (11.5-14.5) % Plt Count 217 (130-400) K/uL MPV 8.7 (7.2-11.7) fl Neut % (Auto) 91.3 H (50.0-75.0) % Lymph % (Auto) 4.2 L (20.0-40.0) % [place] % (Auto) 4.2 (0.0-10.0) % Eos % (Auto) 0.1 (0.0-4.0) % Baso % (Auto) 0.2 (0.0-2.0) % Neut # (Auto) 13.2 H (1.8-7.0) K/uL Lymph # (Auto) 0.6 L (1.0-4.3) K/uL [place] # (Auto) 0.6 (0.0-0.8) K/uL Eos # (Auto) 0.0 (0.0-0.7) K/uL Baso # (Auto) 0.0 (0.0-0.2) K/uL Neutrophils % (Manual) 87 H (42-75) % Band Neutrophils % 2 (0-2) % Lymphocytes % (Manual) 6 L (20-50) % Monocytes % (Manual) 5 (0-10) % Smudge Cells Present Platelet Estimate Normal (NORMAL) Hypochromasia (manual) Slight PT (9.8-13.1) Seconds INR (0.9-1.2) APTT (25.6-37.1) Seconds D-Dimer, Quantitative (0-230) ng/mlDDU pCO2 88 H* (35-45) mm/Hg pO2 223 H (80-100) mm/Hg HCO3 22.6 (21-28) mmol/L ABG pH 7.12 L* (7.35-7.45) ABG Total CO2 31.3 H (22-28) mmol/L ABG O2 Saturation 100.3 H (95-98) % ABG O2 Content (15-23) ML/dL ABG Base Excess -3.1 L (-2.0-3.0) mmol/L ABG Hemoglobin (11.7-17.4) g/dL ABG Carboxyhemoglobin (0.5-1.5) % POC ABG HHb (Measured) (0.0-5.0) % ABG Methemoglobin (0.0-3.0) % ABG O2 Capacity (16-24) mL/dL [place] Test Yes ABG Potassium 3.7 (3.6-5.2) mmol/L VBG pH (7.32-7.43) VBG pCO2 (40-60) mmHg VBG HCO3 mmol/L VBG Total CO2 (22-28) mmol/L VBG O2 Sat (Calc) (40-65) % VBG Base Excess (0.0-2.0) mmol/L VBG Potassium (3.6-5.2) mmol/L A-a O2 Difference 380.0 mm/Hg Hgb O2 Saturation (95.0-98.0) % Sodium 132.0 (132-148) mmol/L Chloride 104.0 (98-107) mmol/L Glucose 137 H (75-110) mg/dL Lactate 0.6 L (0.7-2.1) mmol/L Vent Mode Prvc/ac Mechanical Rate 16 FiO2 100.0 % Tidal Volume 500 PEEP 5 Crit Value Called To janey Summers Crit Value Called By 22 Crit Value Read Back Y Blood Gas Notified Time 1436 Potassium (3.6-5.0) MMOL/L Carbon Dioxide (22-30) mmol/L Anion Gap (10-20) BUN (9-20) mg/dl Creatinine (0.8-1.5) mg/dl Est GFR ( Amer) Est GFR (Non-Af Amer) POC Glucose (mg/dL) (65-110) mg/dL Random Glucose (75-110) mg/dL Calcium (8.4-10.2) mg/dL Total Bilirubin (0.2-1.3) mg/dl AST (17-59) U/L ALT (21-72) U/L Alkaline Phosphatase (38-126) U/L Troponin I (0.00-0.120) ng/mL Total Protein (6.3-8.2) G/DL Albumin (3.5-5.0) g/dL Globulin (2.2-3.9) gm/dL Albumin/Globulin Ratio (1.0-2.1) Arterial Blood Potassium 3.7 (3.6-5.2) mmol/L Venous Blood Potassium (3.6-5.2) mmol/L Urine Color Yellow (YELLOW) Urine Clarity Slight-cloudy (Clear) Urine pH 6.0 (5.0-8.0) Ur Specific [place] > 1.030 H (1.003-1.030) Urine Protein > 300 (NEGATIVE) mg/dL Urine Glucose (UA) Negative (Normal) mg/dL Urine Ketones Negative (NEGATIVE) mg/dL Urine Blood Moderate (NEGATIVE) Urine Nitrate Negative (NEGATIVE) Urine Bilirubin Negative (NEGATIVE) Urine Urobilinogen 0.2 (0.2-1.0) mg/dL Ur Leukocyte Esterase Negative (Negative) [place]/uL Urine RBC (Auto) 2 (0-3) /hpf Urine Microscopic WBC 0 (0-5) /hpf Ur Squamous Epith Cells 3 (0-5) /hpf Amorphous Sediment Moderate H (<OCC) /ul Urine Opiates Screen (NEGATIVE) Urine Methadone Screen (NEGATIVE) Ur Barbiturates Screen (NEGATIVE) Ur Phencyclidine Scrn (NEGATIVE) Ur Amphetamines Screen (NEGATIVE) U Benzodiazepines Scrn (NEGATIVE) U Oth Cocaine Metabols (NEGATIVE) U Cannabinoids Screen (NEGATIVE) 09/29/17 Range/Units 14:19 WBC (4.8-10.8) K/uL RBC (4.40-5.90) Mil/uL Hgb (12.0-18.0) g/dL Hct (35.0-51.0) % MCV (80.0-94.0) fl MCH (27.0-31.0) pg MCHC (33.0-37.0) g/dL RDW (11.5-14.5) % Plt Count (130-400) K/uL MPV (7.2-11.7) fl Neut % (Auto) (50.0-75.0) % Lymph % (Auto) (20.0-40.0) % [place] % (Auto) (0.0-10.0) % Eos % (Auto) (0.0-4.0) % Baso % (Auto) (0.0-2.0) % Neut # (Auto) (1.8-7.0) K/uL Lymph # (Auto) (1.0-4.3) K/uL [place] # (Auto) (0.0-0.8) K/uL Eos # (Auto) (0.0-0.7) K/uL Baso # (Auto) (0.0-0.2) K/uL Neutrophils % (Manual) (42-75) % Band Neutrophils % (0-2) % Lymphocytes % (Manual) (20-50) % Monocytes % (Manual) (0-10) % Smudge Cells Platelet Estimate (NORMAL) Hypochromasia (manual) PT (9.8-13.1) Seconds INR (0.9-1.2) APTT (25.6-37.1) Seconds D-Dimer, Quantitative (0-230) ng/mlDDU pCO2 (35-45) mm/Hg pO2 (80-100) mm/Hg HCO3 (21-28) mmol/L ABG pH (7.35-7.45) ABG Total CO2 (22-28) mmol/L ABG O2 Saturation (95-98) % ABG O2 Content (15-23) ML/dL ABG Base Excess (-2.0-3.0) mmol/L ABG Hemoglobin (11.7-17.4) g/dL ABG Carboxyhemoglobin (0.5-1.5) % POC ABG HHb (Measured) (0.0-5.0) % ABG Methemoglobin (0.0-3.0) % ABG O2 Capacity (16-24) mL/dL [place] Test ABG Potassium (3.6-5.2) mmol/L VBG pH (7.32-7.43) VBG pCO2 (40-60) mmHg VBG HCO3 mmol/L VBG Total CO2 (22-28) mmol/L VBG O2 Sat (Calc) (40-65) % VBG Base Excess (0.0-2.0) mmol/L VBG Potassium (3.6-5.2) mmol/L A-a O2 Difference mm/Hg Hgb O2 Saturation (95.0-98.0) % Sodium (132-148) mmol/L Chloride (98-107) mmol/L Glucose (75-110) mg/dL Lactate (0.7-2.1) mmol/L Vent Mode Mechanical Rate FiO2 % Tidal Volume PEEP Crit Value Called To Crit Value Called By Crit Value Read Back Blood Gas Notified Time Potassium (3.6-5.0) MMOL/L Carbon Dioxide (22-30) mmol/L Anion Gap (10-20) BUN (9-20) mg/dl Creatinine (0.8-1.5) mg/dl Est GFR ( Amer) Est GFR (Non-Af Amer) POC Glucose (mg/dL) 123 H (65-110) mg/dL Random Glucose (75-110) mg/dL Calcium (8.4-10.2) mg/dL Total Bilirubin (0.2-1.3) mg/dl AST (17-59) U/L ALT (21-72) U/L Alkaline Phosphatase (38-126) U/L Troponin I (0.00-0.120) ng/mL Total Protein (6.3-8.2) G/DL Albumin (3.5-5.0) g/dL Globulin (2.2-3.9) gm/dL Albumin/Globulin Ratio (1.0-2.1) Arterial Blood Potassium (3.6-5.2) mmol/L Venous Blood Potassium (3.6-5.2) mmol/L Urine Color (YELLOW) Urine Clarity (Clear) Urine pH (5.0-8.0) Ur Specific [place] (1.003-1.030) Urine Protein (NEGATIVE) mg/dL Urine Glucose (UA) (Normal) mg/dL Urine Ketones (NEGATIVE) mg/dL Urine Blood (NEGATIVE) Urine Nitrate (NEGATIVE) Urine Bilirubin (NEGATIVE) Urine Urobilinogen (0.2-1.0) mg/dL Ur Leukocyte Esterase (Negative) [place]/uL Urine RBC (Auto) (0-3) /hpf Urine Microscopic WBC (0-5) /hpf Ur Squamous Epith Cells (0-5) /hpf Amorphous Sediment (<OCC) /ul Urine Opiates Screen (NEGATIVE) Urine Methadone Screen (NEGATIVE) Ur Barbiturates Screen (NEGATIVE) Ur Phencyclidine Scrn (NEGATIVE) Ur Amphetamines Screen (NEGATIVE) U Benzodiazepines Scrn (NEGATIVE) U Oth Cocaine Metabols (NEGATIVE) U Cannabinoids Screen (NEGATIVE) Laboratory Results - last 24 hr 09/29/17 09/29/17 09/29/17 14:19 14:29 15:00 WBC RBC Hgb Hct MCV MCH MCHC RDW Plt Count MPV Neut % (Auto) Lymph % (Auto) [place] % (Auto) Eos % (Auto) Baso % (Auto) Neut # (Auto) Lymph # (Auto) [place] # (Auto) Eos # (Auto) Baso # (Auto) Neutrophils % (Manual) Band Neutrophils % Lymphocytes % (Manual) Monocytes % (Manual) Smudge Cells Platelet Estimate Hypochromasia (manual) PT INR APTT D-Dimer, Quantitative pCO2 88 H* pO2 223 H HCO3 22.6 ABG pH 7.12 L* ABG Total CO2 31.3 H ABG O2 Saturation 100.3 H ABG O2 Content ABG Base Excess -3.1 L ABG Hemoglobin ABG Carboxyhemoglobin POC ABG HHb (Measured) ABG Methemoglobin ABG O2 Capacity [place] Test Yes ABG Potassium 3.7 VBG pH VBG pCO2 VBG HCO3 VBG Total CO2 VBG O2 Sat (Calc) VBG Base Excess VBG Potassium A-a O2 Difference 380.0 Hgb O2 Saturation Sodium 132.0 Chloride 104.0 Glucose 137 H Lactate 0.6 L Vent Mode Prvc/ac Mechanical Rate 16 FiO2 100.0 Tidal Volume 500 PEEP 5 Crit Value Called To janey Summers Crit Value Called By 22 Crit Value Read Back Y Blood Gas Notified Time 1436 Potassium Carbon Dioxide Anion Gap BUN Creatinine Est GFR ( Amer) Est GFR (Non-Af Amer) POC Glucose (mg/dL) 123 H Random Glucose Calcium Total Bilirubin AST ALT Alkaline Phosphatase Troponin I Total Protein Albumin Globulin Albumin/Globulin Ratio Arterial Blood Potassium 3.7 Venous Blood Potassium Urine Color Yellow Urine Clarity Slight-cloudy Urine pH 6.0 Ur Specific [place] > 1.030 H Urine Protein > 300 Urine Glucose (UA) Negative Urine Ketones Negative Urine Blood Moderate Urine Nitrate Negative Urine Bilirubin Negative Urine Urobilinogen 0.2 Ur Leukocyte Esterase Negative Urine RBC (Auto) 2 Urine Microscopic WBC 0 Ur Squamous Epith Cells 3 Amorphous Sediment Moderate H Urine Opiates Screen Urine Methadone Screen Ur Barbiturates Screen Ur Phencyclidine Scrn Ur Amphetamines Screen U Benzodiazepines Scrn U Oth Cocaine Metabols U Cannabinoids Screen 09/29/17 09/29/17 09/29/17 15:20 15:20 15:20 WBC 14.5 H D RBC 4.34 L Hgb 13.7 Hct 40.6 MCV 93.6 MCH 31.6 H MCHC 33.7 RDW 14.4 Plt Count 217 MPV 8.7 Neut % (Auto) 91.3 H Lymph % (Auto) 4.2 L [place] % (Auto) 4.2 Eos % (Auto) 0.1 Baso % (Auto) 0.2 Neut # (Auto) 13.2 H Lymph # (Auto) 0.6 L [place] # (Auto) 0.6 Eos # (Auto) 0.0 Baso # (Auto) 0.0 Neutrophils % (Manual) 87 H Band Neutrophils % 2 Lymphocytes % (Manual) 6 L Monocytes % (Manual) 5 Smudge Cells Present Platelet Estimate Normal Hypochromasia (manual) Slight PT INR APTT D-Dimer, Quantitative 992 H pCO2 pO2 HCO3 ABG pH ABG Total CO2 ABG O2 Saturation ABG O2 Content ABG Base Excess ABG Hemoglobin ABG Carboxyhemoglobin POC ABG HHb (Measured) ABG Methemoglobin ABG O2 Capacity [place] Test ABG Potassium VBG pH VBG pCO2 VBG HCO3 VBG Total CO2 VBG O2 Sat (Calc) VBG Base Excess VBG Potassium A-a O2 Difference Hgb O2 Saturation Sodium 141 Chloride 101 Glucose Lactate Vent Mode Mechanical Rate FiO2 Tidal Volume PEEP Crit Value Called To Crit Value Called By Crit Value Read Back Blood Gas Notified Time Potassium 4.2 Carbon Dioxide 26 Anion Gap 18 BUN 24 H Creatinine 0.6 L Est GFR ( Amer) > 60 Est GFR (Non-Af Amer) > 60 POC Glucose (mg/dL) Random Glucose 125 H Calcium 9.2 Total Bilirubin 0.4 AST 21 ALT 35 Alkaline Phosphatase 74 Troponin I 0.0460 Total Protein 6.5 Albumin 3.5 Globulin 3.1 Albumin/Globulin Ratio 1.1 Arterial Blood Potassium Venous Blood Potassium Urine Color Urine Clarity Urine pH Ur Specific [place] Urine Protein Urine Glucose (UA) Urine Ketones Urine Blood Urine Nitrate Urine Bilirubin Urine Urobilinogen Ur Leukocyte Esterase Urine RBC (Auto) Urine Microscopic WBC Ur Squamous Epith Cells Amorphous Sediment Urine Opiates Screen Urine Methadone Screen Ur Barbiturates Screen Ur Phencyclidine Scrn Ur Amphetamines Screen U Benzodiazepines Scrn U Oth Cocaine Metabols U Cannabinoids Screen 09/29/17 09/30/17 09/30/17 17:00 00:30 04:05 WBC RBC Hgb Hct MCV MCH MCHC RDW Plt Count MPV Neut % (Auto) Lymph % (Auto) [place] % (Auto) Eos % (Auto) Baso % (Auto) Neut # (Auto) Lymph # (Auto) [place] # (Auto) Eos # (Auto) Baso # (Auto) Neutrophils % (Manual) Band Neutrophils % Lymphocytes % (Manual) Monocytes % (Manual) Smudge Cells Platelet Estimate Hypochromasia (manual) PT INR APTT D-Dimer, Quantitative pCO2 54 H pO2 61 L HCO3 25.4 ABG pH 7.32 L ABG Total CO2 29.5 H ABG O2 Saturation 94.6 L ABG O2 Content 15.6 ABG Base Excess 0.8 ABG Hemoglobin 12.1 ABG Carboxyhemoglobin 1.8 H POC ABG HHb (Measured) 5.2 H ABG Methemoglobin 1.1 ABG O2 Capacity 16.5 [place] Test Yes ABG Potassium VBG pH VBG pCO2 VBG HCO3 VBG Total CO2 VBG O2 Sat (Calc) VBG Base Excess VBG Potassium A-a O2 Difference 228.0 Hgb O2 Saturation 91.9 L Sodium Chloride Glucose Lactate Vent Mode Mechanical Rate FiO2 50.0 Tidal Volume PEEP Crit Value Called To Crit Value Called By Crit Value Read Back Blood Gas Notified Time Potassium Carbon Dioxide Anion Gap BUN Creatinine Est GFR ( Amer) Est GFR (Non-Af Amer) POC Glucose (mg/dL) Random Glucose Calcium Total Bilirubin AST ALT Alkaline Phosphatase Troponin I 0.0500 Total Protein Albumin Globulin Albumin/Globulin Ratio Arterial Blood Potassium Venous Blood Potassium Urine Color Urine Clarity Urine pH Ur Specific [place] Urine Protein Urine Glucose (UA) Urine Ketones Urine Blood Urine Nitrate Urine Bilirubin Urine Urobilinogen Ur Leukocyte Esterase Urine RBC (Auto) Urine Microscopic WBC Ur Squamous Epith Cells Amorphous Sediment Urine Opiates Screen Positive H Urine Methadone Screen Negative Ur Barbiturates Screen Negative Ur Phencyclidine Scrn Negative Ur Amphetamines Screen Negative U Benzodiazepines Scrn Negative U Oth Cocaine Metabols Negative U Cannabinoids Screen Negative 09/30/17 09/30/17 09/30/17 04:20 04:20 04:20 WBC 12.9 H RBC 3.78 L Hgb 11.7 L D Hct 35.6 MCV 94.2 H MCH 30.9 MCHC 32.8 L RDW 14.9 H Plt Count 182 MPV 9.2 Neut % (Auto) 84.7 H Lymph % (Auto) 8.3 L [place] % (Auto) 6.7 Eos % (Auto) 0.1 Baso % (Auto) 0.2 Neut # (Auto) 10.9 H Lymph # (Auto) 1.1 [place] # (Auto) 0.9 H Eos # (Auto) 0.0 Baso # (Auto) 0.0 Neutrophils % (Manual) Band Neutrophils % Lymphocytes % (Manual) Monocytes % (Manual) Smudge Cells Platelet Estimate Hypochromasia (manual) PT 14.1 H INR 1.3 H APTT 35.2 D-Dimer, Quantitative pCO2 pO2 HCO3 ABG pH ABG Total CO2 ABG O2 Saturation ABG O2 Content ABG Base Excess ABG Hemoglobin ABG Carboxyhemoglobin POC ABG HHb (Measured) ABG Methemoglobin ABG O2 Capacity [place] Test ABG Potassium VBG pH VBG pCO2 VBG HCO3 VBG Total CO2 VBG O2 Sat (Calc) VBG Base Excess VBG Potassium A-a O2 Difference Hgb O2 Saturation Sodium 142 Chloride 105 Glucose Lactate Vent Mode Mechanical Rate FiO2 Tidal Volume PEEP Crit Value Called To Crit Value Called By Crit Value Read Back Blood Gas Notified Time Potassium 3.9 Carbon Dioxide 26 Anion Gap 15 BUN 15 Creatinine 0.5 L Est GFR ( Amer) > 60 Est GFR (Non-Af Amer) > 60 POC Glucose (mg/dL) Random Glucose 80 Calcium 8.8 Total Bilirubin 0.4 AST 11 L D ALT 33 Alkaline Phosphatase 63 Troponin I Total Protein 5.7 L Albumin 2.9 L Globulin 2.8 Albumin/Globulin Ratio 1.0 Arterial Blood Potassium Venous Blood Potassium Urine Color Urine Clarity Urine pH Ur Specific [place] Urine Protein Urine Glucose (UA) Urine Ketones Urine Blood Urine Nitrate Urine Bilirubin Urine Urobilinogen Ur Leukocyte Esterase Urine RBC (Auto) Urine Microscopic WBC Ur Squamous Epith Cells Amorphous Sediment Urine Opiates Screen Urine Methadone Screen Ur Barbiturates Screen Ur Phencyclidine Scrn Ur Amphetamines Screen U Benzodiazepines Scrn U Oth Cocaine Metabols U Cannabinoids Screen 09/30/17 04:22 WBC RBC Hgb Hct MCV MCH MCHC RDW Plt Count MPV Neut % (Auto) Lymph % (Auto) [place] % (Auto) Eos % (Auto) Baso % (Auto) Neut # (Auto) Lymph # (Auto) [place] # (Auto) Eos # (Auto) Baso # (Auto) Neutrophils % (Manual) Band Neutrophils % Lymphocytes % (Manual) Monocytes % (Manual) Smudge Cells Platelet Estimate Hypochromasia (manual) PT INR APTT D-Dimer, Quantitative pCO2 pO2 57 H HCO3 ABG pH ABG Total CO2 ABG O2 Saturation ABG O2 Content ABG Base Excess ABG Hemoglobin ABG Carboxyhemoglobin POC ABG HHb (Measured) ABG Methemoglobin ABG O2 Capacity [place] Test ABG Potassium VBG pH 7.35 VBG pCO2 49 VBG HCO3 25.3 VBG Total CO2 28.6 H VBG O2 Sat (Calc) 93.3 H VBG Base Excess 0.8 VBG Potassium 3.8 A-a O2 Difference Hgb O2 Saturation Sodium 138.0 Chloride 108.0 H Glucose 85 Lactate 0.9 Vent Mode Mechanical Rate FiO2 50.0 Tidal Volume PEEP Crit Value Called To Crit Value Called By Crit Value Read Back Blood Gas Notified Time Potassium Carbon Dioxide Anion Gap BUN Creatinine Est GFR ( Amer) Est GFR (Non-Af Amer) POC Glucose (mg/dL) Random Glucose Calcium Total Bilirubin AST ALT Alkaline Phosphatase Troponin I Total Protein Albumin Globulin Albumin/Globulin Ratio Arterial Blood Potassium Venous Blood Potassium 3.8 Urine Color Urine Clarity Urine pH Ur Specific [place] Urine Protein Urine Glucose (UA) Urine Ketones Urine Blood Urine Nitrate Urine Bilirubin Urine Urobilinogen Ur Leukocyte Esterase Urine RBC (Auto) Urine Microscopic WBC Ur Squamous Epith Cells Amorphous Sediment Urine Opiates Screen Urine Methadone Screen Ur Barbiturates Screen Ur Phencyclidine Scrn Ur Amphetamines Screen U Benzodiazepines Scrn U Oth Cocaine Metabols U Cannabinoids Screen EKG/Cardiology Studies: Cardiology / EKG Studies 09/29/17 14:16 ELECTROCARDIOGRAM Stat Comment: Mode Of Transportation: Reason For Exam: resp failure 09/30/17 09:00 EKG [ELECTROCARDIOGRAM] DAILY Comment: Mode Of Transportation: Reason For Exam: r/o AMI Fingerstick Blood Sugar Results: 123
--- NOTE | 2017-09-30 12:46 | PQF GENQUE ---
Dr. Melvin, 2 queries: 1. Please clarify if Sepsis is ruled in or ruled out? Sepsis is listed in the ER record and then the diagnosis is dropped: i.e Patient has sepsis: and: Please document suspected or confirmed causative organism :if known 2. If ruled in: Please document suspected or confirmed localized infection:if known i.e. Sepsis due to Pneumonia etc. OR: Sepsis was ruled out OR: Unable to determine OR: Other explanation of clinical findings WBC: 14.5->12.9 left shift ER: to ER by paramedics, intubated in field for respiratory distress: [employer]; arrived hypotensive; was tachycardia Cardiovascular/Chest: Positive for: Tachycardia (and regular at 120. ) Rt. IJ placed under ultrasound guidance. Indication of probable sepsis and possible need for pressors and multiple antibiotics as well as fluids. -CXR show right lower lobe infiltrate on setting of respiratory failure Clinical Impression: Respiratory failure, Pneumonia, Sepsis This form is a permanent part of the medical record Clarification of your documentation is requested to better reflect the severity of illness and intensity of treatment of your patient. Indicators present [] Specify: [] [] Specify: [] [] Specify: [] [] Specify: [] Location in the medical record that reflects the above clinical findings: [] Treatment Provided: [] PHYSICIAN'S RESPONSE Based on your medical judgment of the clinical indicators outlined above please clarify the following: [] Practitioner response [] If unable to determine, please check the box, sign and date. Present On Admission (POA) Indicator: [] Present at the time of admission [] Not present at the time of admission [] Clinically Undetermined In responding to this query, please exercise your independent professional judgment. The fact that a question is asked does not imply that any particular answer is desired or expected. Thank you for your clarification on this documentation. If you have any questions please call. * Thank you, Jayda Cline RN ext. #[phone] MTDD
[2017-09-30] MEDS: Azithromycin 500 MG in Sodium Chloride 0.9% 250 ML IVPB SCH (14:00)
--- NOTE | 2017-10-01 01:27 | CP.PCM.HP ---
History of Present Illness - History of Present Illness History of Present Illness: 66M with PMH COPD with emphysema, HTN, smoker, hyperlipidemia, Seizure disorder , and substance abuse, transferred by EMS from home for resp distress and altered mental status, he was initially intubated but he self extubated this am , now CPAP in ICU Present on Admission - Present on Admission Any Indicators Present on Admission: No Review of Systems - Review of Systems Systems not reviewed;Unavailable: Respiratory Distress Past Patient History - Infectious Disease Hx of Infectious Diseases: None - Past Medical History & Family History Past Medical History?: Yes - Past Social History Smoking Status: Smoker Currrent Status Unknown - CARDIAC Hx Hypertension: Yes - PULMONARY Hx Chronic Obstructive Pulmonary Disease (COPD): Yes Hx Emphysema: Yes - NEUROLOGICAL Hx Seizures: Yes - HEENT Hx HEENT Problems: No - RENAL Hx Chronic Kidney Disease: No - ENDOCRINE/METABOLIC Hx Endocrine Disorders: No - HEMATOLOGICAL/ONCOLOGICAL Hx AIDS: No Hx Human Immunodeficiency Virus (HIV): No - INTEGUMENTARY Hx Dermatological Problems: No - MUSCULOSKELETAL/RHEUMATOLOGICAL Hx Musculoskeletal Disorders: Yes Hx Falls: No - GASTROINTESTINAL Hx Gall Bladder Disease: Yes - GENITOURINARY/GYNECOLOGICAL Hx Genitourinary Disorders: No - PSYCHIATRIC Hx Psychophysiologic Disorder: No Hx Substance Use: No Other/Comment: past history of drinking - SURGICAL HISTORY Hx Cholecystectomy: Yes - ANESTHESIA Hx Anesthesia: Yes Hx Anesthesia Reactions: No Hx Malignant Hyperthermia: No Meds Allergies/Adverse Reactions: Allergies Allergy/AdvReac Type Severity Reaction Status Date / Time No Known Allergies Allergy Verified 08/28/17 22:20 Physical Exam - Constitutional Appears: Non-toxic, No Acute Distress - Head Exam Head Exam: ATRAUMATIC, NORMAL INSPECTION - Eye Exam Eye Exam: EOMI, Normal appearance, PERRL Pupil Exam: NORMAL ACCOMODATION - ENT Exam ENT Exam: Mucous Membranes Moist - Neck Exam Neck exam: Positive for: Full Rom - Respiratory Exam Respiratory Exam: Decreased Breath Sounds, Prolonged Expiratory Phase - Cardiovascular Exam Cardiovascular Exam: REGULAR RHYTHM - GI/Abdominal Exam GI & Abdominal Exam: Normal Bowel Sounds, Soft - Rectal Exam Rectal Exam: NORMAL INSPECTION - Extremities Exam Extremities exam: Positive for: full ROM, normal capillary refill, normal inspection, pedal pulses present. Negative for: calf tenderness, joint swelling , pedal edema, tenderness - Back Exam Back exam: NORMAL INSPECTION - Neurological Exam Neurological exam: Alert, Oriented x3 - Psychiatric Exam Psychiatric exam: Anxious, Normal Affect - Skin Skin Exam: Dry, Intact, Normal Color, Warm Results - Vital Signs Recent Vital Signs: Last Vital Signs Temp 98.0 F 09/30/17 16:00 Pulse 91 H 09/30/17 23:12 Resp 25 H 09/30/17 16:00 BP 172/80 H 09/30/17 16:00 Pulse Ox 98 09/30/17 16:00 - Labs Result Diagrams: 09/30/17 04:20 09/30/17 04:20 Labs: Laboratory Results - last 24 hr 09/29/17 09/30/17 09/30/17 19:15 04:05 04:20 WBC 12.9 H RBC 3.78 L Hgb 11.7 L D Hct 35.6 MCV 94.2 H MCH 30.9 MCHC 32.8 L RDW 14.9 H Plt Count 182 MPV 9.2 Neut % (Auto) 84.7 H Lymph % (Auto) 8.3 L [place] % (Auto) 6.7 Eos % (Auto) 0.1 Baso % (Auto) 0.2 Neut # (Auto) 10.9 H Lymph # (Auto) 1.1 [place] # (Auto) 0.9 H Eos # (Auto) 0.0 Baso # (Auto) 0.0 PT INR APTT pCO2 54 H pO2 61 L HCO3 25.4 ABG pH 7.32 L ABG Total CO2 29.5 H ABG O2 Saturation 94.6 L ABG O2 Content 15.6 ABG Base Excess 0.8 ABG Hemoglobin 12.1 ABG Carboxyhemoglobin 1.8 H POC ABG HHb (Measured) 5.2 H ABG Methemoglobin 1.1 ABG O2 Capacity 16.5 [place] Test Yes VBG pH VBG pCO2 VBG HCO3 VBG Total CO2 VBG O2 Sat (Calc) VBG Base Excess VBG Potassium A-a O2 Difference 228.0 Hgb O2 Saturation 91.9 L Glucose Lactate FiO2 50.0 Sodium Potassium Chloride Carbon Dioxide Anion Gap BUN Creatinine Est GFR ( Amer) Est GFR (Non-Af Amer) Random Glucose Calcium Total Bilirubin AST ALT Alkaline Phosphatase Total Protein Albumin Globulin Albumin/Globulin Ratio Venous Blood Potassium Ur L.pneumophila Ag Negative 09/30/17 09/30/17 09/30/17 04:20 04:20 04:22 WBC RBC Hgb Hct MCV MCH MCHC RDW Plt Count MPV Neut % (Auto) Lymph % (Auto) [place] % (Auto) Eos % (Auto) Baso % (Auto) Neut # (Auto) Lymph # (Auto) [place] # (Auto) Eos # (Auto) Baso # (Auto) PT 14.1 H INR 1.3 H APTT 35.2 pCO2 pO2 57 H HCO3 ABG pH ABG Total CO2 ABG O2 Saturation ABG O2 Content ABG Base Excess ABG Hemoglobin ABG Carboxyhemoglobin POC ABG HHb (Measured) ABG Methemoglobin ABG O2 Capacity [place] Test VBG pH 7.35 VBG pCO2 49 VBG HCO3 25.3 VBG Total CO2 28.6 H VBG O2 Sat (Calc) 93.3 H VBG Base Excess 0.8 VBG Potassium 3.8 A-a O2 Difference Hgb O2 Saturation Glucose 85 Lactate 0.9 FiO2 50.0 Sodium 142 138.0 Potassium 3.9 Chloride 105 108.0 H Carbon Dioxide 26 Anion Gap 15 BUN 15 Creatinine 0.5 L Est GFR ( Amer) > 60 Est GFR (Non-Af Amer) > 60 Random Glucose 80 Calcium 8.8 Total Bilirubin 0.4 AST 11 L D ALT 33 Alkaline Phosphatase 63 Total Protein 5.7 L Albumin 2.9 L Globulin 2.8 Albumin/Globulin Ratio 1.0 Venous Blood Potassium 3.8 Ur L.pneumophila Ag Assessment & Plan - Assessment and Plan (Free Text) Assessment: 67 y/o with acute respiratory distress 1. Acute Hypercapneic, Hypoxemic Resp Failure 2 Bilateral lower lobe pneumonia and Metabolic Encephalopathy 2. COPD / Emphysema 3. Azotemia / Dehydration 4. HTN 5. Opioid Dependency PLAN: 1. MV support, Check repeat ABG, watch for post-hypercapneic resp alkalosis. Duonebs for any wheezing 2. Check sputum c&s, blood culture. Last hospital admission in Mar 2017 for Pneumonia and Sepsis, empiric Zosyn and Vanco started in ER. Check urine for legionella, mycoplasma titers. Get Pulm eval. 3. IVF hydration, nicotine patch - Date & Time Date: 09/30/17 Time: 10:30
[2017-10-01 05:51] LABS: BASO % 0.2 % (0.0-2.0); EOS % 0.2 % (0.0-4.0); HEMOGLOBIN 11.3 g/dL (12.0-18.0); LYMPH # 1.1 K/uL (1.0-4.3); LYMPH % 9.8 % (20.0-40.0); MEAN CELL VOLUME 92.7 fl (80.0-94.0); MEAN CORPUSCULAR HEMOGLOBIN 31.8 pg (27.0-31.0); MEAN CORPUSCULAR HGB CONC 34.3 g/dL (33.0-37.0); MEAN PLATELET VOLUME 8.4 fl (7.2-11.7); MONO % 8.7 % (0.0-10.0); NEUT # 8.9 K/uL (1.8-7.0); NEUT % 81.1 % (50.0-75.0); NRBC % 0.1 % (0.0-0.0); RBC 3.54 Mil/uL (4.40-5.90); RED CELL DISTRIBUTION WIDTH 14.6 % (11.5-14.5)
[2017-10-01 06:02] LABS: ALBUMIN 2.7 g/dL (3.5-5.0); ALT/SGPT 30 U/L (21-72); AST/SGOT 13 U/L (17-59); BLOOD UREA NITROGEN 14 mg/dl (9-20); CALCIUM 8.1 mg/dL (8.4-10.2); GFR AFRICAN-AMERICAN > 60; GFR NON-AFRICAN AMERICAN > 60
[2017-10-01] MEDS: Albuterol-Ipratrop 3 mg / 0.5 (3 ml) UD INH SCH ×4 (08:15→19:58)
[2017-10-01] MEDS ORDERED: Sterile Water 10 ML IV ONE (10:54)
[2017-10-01] MEDS: Enoxaparin 40 mg Syringe SC SCH (11:31)
[2017-10-01] MEDS: Potassium Chloride 20 mEq/15 ml LIQ UD PO SCH (11:34)
[2017-10-01] MEDS: Azithromycin 500 MG in Sodium Chloride 0.9% 250 ML IVPB SCH (11:34)
[2017-10-01] MEDS: Oxycodone/Acetaminophen 5/325 mg Tab PO PRN ×2 (12:29→18:17)
--- NOTE | 2017-10-01 21:29 | CP.PCM.PN ---
Subjective - Date & Time of Evaluation Date of Evaluation: 10/01/17 Time of Evaluation: 14:00 - Subjective Subjective: seen and examined, sleeping with NC, sating 98%, breathing spontaneous, no events over night Objective - Vital Signs/Intake and Output Vital Signs (last 24 hours): Temp Pulse Resp BP Pulse Ox 99.6 F 83 22 137/76 96 10/01/17 16:00 10/01/17 18:00 10/01/17 18:00 10/01/17 18:00 10/01/17 18:00 Intake and Output: 10/01/17 10/02/17 18:59 06:59 Intake Total 378 Output Total 750 Balance -372 - Medications Medications: Current Medications Albuterol/Ipratropium (Duoneb 3 Mg/0.5 Mg (3 Ml) Ud) 3 ml INH RQID [facility] Last Admin: 10/01/17 19:58 Dose: Not Given Enoxaparin Sodium (Lovenox) 40 mg SC DAILY [facility] PRN Reason: Protocol Last Admin: 10/01/17 11:31 Dose: 40 mg Azithromycin 500 mg/ Sodium (Chloride) 250 mls @ 250 mls/hr IVPB DAILY [facility] PRN Reason: Protocol Last Admin: 10/01/17 11:34 Dose: 250 mls/hr Ceftriaxone Sodium 1 gm/ (Sodium Chloride) 100 mls @ 100 mls/hr IVPB DAILY [facility] PRN Reason: Protocol Last Admin: 10/01/17 11:28 Dose: 100 mls/hr Morphine Sulfate (Morphine) 4 mg IVP Q4 PRN PRN Reason: Pain, moderate (4-7) Last Admin: 10/01/17 08:52 Dose: 4 mg Nicotine (Nicoderm Cq) 1 patch TD DAILY [facility] Last Admin: 10/01/17 08:57 Dose: 1 patch Oxycodone/Acetaminophen (Percocet 5/325 Mg Tab) 1 tab PO Q6 PRN PRN Reason: Pain, moderate (4-7) Stop: 10/04/17 08:40 Last Admin: 10/01/17 18:17 Dose: 1 tab Pantoprazole Sodium (Protonix Inj) 40 mg IVP DAILY [facility] Last Admin: 10/01/17 08:57 Dose: 40 mg Potassium Chloride (Potassium Chloride Oral Soln) 20 meq PO DAILY [facility] Last Admin: 10/01/17 11:34 Dose: 20 meq - Labs Labs: 10/01/17 04:57 10/01/17 04:57 PT 14.1 Seconds (9.8-13.1) H 09/30/17 04:20 INR 1.3 (0.9-1.2) H 09/30/17 04:20 APTT 35.2 Seconds (25.6-37.1) 09/30/17 04:20 - Constitutional Appears: Well, No Acute Distress - Head Exam Head Exam: ATRAUMATIC - Eye Exam Eye Exam: Normal appearance, PERRL - ENT Exam ENT Exam: Mucous Membranes Moist - Neck Exam Neck Exam: Normal Inspection - Respiratory Exam Respiratory Exam: Clear to Ausculation Bilateral, NORMAL BREATHING PATTERN - Cardiovascular Exam Cardiovascular Exam: REGULAR RHYTHM - GI/Abdominal Exam GI & Abdominal Exam: Soft, Normal Bowel Sounds - Extremities Exam Extremities Exam: Normal Capillary Refill, Normal Inspection - Neurological Exam Neurological Exam: Reflexes Normal - Skin Skin Exam: Dry, Normal Color Assessment and Plan - Assessment and Plan (Free Text) Assessment: 67 y/o with acute respiratory distress 1. Acute Hypercapneic, Hypoxemic Resp Failure 2 Bilateral lower lobe pneumonia and Metabolic Encephalopathy 2. COPD / Emphysema 3. Azotemia / Dehydration 4. HTN 5. Opioid Dependency PLAN: 1. MV support, Check repeat ABG, watch for post-hypercapneic resp alkalosis. Duonebs for any wheezing 2. Check sputum c&s, blood culture. Last hospital admission in Mar 2017 for Pneumonia and Sepsis, empiric Zosyn and Vanco started in ER. Check urine for legionella, mycoplasma titers. Get Pulm eval. 3. IVF hydration, nicotine patch 4. O2 titration, off CPAP, doing well on NV
[2017-10-01] MEDS ORDERED: Albuterol-Ipratrop 3 mg / 0.5 (3 ml) UD INH STA (23:36)
--- NOTE | 2017-10-02 00:07 | PN ---
CRITICAL CARE PROGRESS NOTE DATE: 10/01/2017 LOCATION: The patient is in ICU, bed 434. TIME SPENT: 35 minutes. SUBJECTIVE: The patient is seen and evaluated at the bedside. Past medical, surgical, and social history reviewed. A 67-year-old male chronic smoker with chronic obstructive pulmonary disease, chronic back pain syndrome on multiple narcotics, admitted with hypercapnic-hypoxic respiratory failure, self extubated, and currently on oxygen by nasal cannula. Overnight uneventful. Telemetry; sinus rhythm, normotensive, afebrile, less short of breath, and tolerating p.o. feeds. OBJECTIVE: VITAL SIGNS: Current vital signs; temperature 98.6, heart rate 85, blood pressure 131/67, mean arterial pressure 88, respiratory rate 20 to 29 thoracoabdominal, and saturation 100% oxygen supplement 2 L nasal cannula. Intake 2940 and output 1600, positive balance 1340. Weight 160 pounds. HEAD, EYES, EARS, NOSE AND THROAT: Pupils reactive. Conjunctivae pale. Sclerae anicteric. NECK: Supple. Trachea central. CHEST: Bilateral breath sounds diminished in intensity. Expiration prolonged. HEART: Rhythm regular, distant. No audible murmur. ABDOMEN: Bowel sounds present. Soft. Liver and spleen not palpable. Bladder not distended. EXTREMITIES: Trace edema. DP palpable, symmetric. NEUROLOGIC: Nonfocal. SKIN: Without rash. CURRENT MEDICATIONS: Include DuoNeb 3 mL via nebulizer every 6 hours, ceftriaxone 1 g IV daily, Zithromax 500 mg IV daily, Lovenox 40 subcutaneously daily, morphine 4 mg IV every 4 hours p.r.n. for pain, nicotine patch 14 mg daily, Percocet 1 tablet every 6 hours p.r.n., Protonix 40 IV daily, and potassium chloride 20 mEq p.o. daily. LABORATORY DATA: WBC 11, hemoglobin 11.3, hematocrit 32.9, platelet count 189, neutrophils 81, lymphocytes 9.8, and monocytes 8.7. PT 14.1, INR 1.3, and PTT 35.2. ABG; pH of 7.32, pCO2 of 54, pO2 of 61, saturation 94.6 on FiO2 50%. SMA-7; sodium 145, potassium 3, chloride 103, CO2 of 27, blood urea nitrogen 14, creatinine 0.4, random glucose 86, total bilirubin 0.7, and calcium 8.1. AST 13, ALT 30, alkaline phosphatase 65, total protein 5.5, albumin 2.7, and globulin 2.8. Urinalysis; urine RBC 2, WBC 3, moderately high amorphous sediment. Toxicology; urine Legionella antigen negative. Microbiology; blood culture positive for Staphylococcus coagulase negative. Urine culture, no growth. Nasal smear MRSA negative. Chest x-ray done on 09/30/2017; bilateral infiltrates reduced, left greater than right, cvp line in position, and no pneumothorax. IMPRESSION AND PLAN: 1. Neurologic: Toxic metabolic encephalopathy improved, status post hypercapnic-hypoxic respiratory failure, self extubated, and tolerating well. 2. Pulmonary: Chronic obstructive pulmonary disease. Continue bronchodilator, encouraged expectoration, and chest PT as needed. 3. Cardiac: No acute issues noted. Telemetry without any cardiac arrhythmia. 4. Gastrointestinal: Hypoalbuminemia secondary to malnutrition, encourage p.o. intake. 5. Renal: Hypokalemia. Supplement potassium __ BUN and creatinine are within normal range. 6. Hematology: Mild leukocytosis improving. Hemoglobin and hematocrit stable. Platelet count normal. 7. Infectious Disease: Suspected pneumonia, on ceftriaxone and azithromycin. Continue deep venous thrombosis and gastrointestinal prophylaxis. Continue analgesics as needed for chronic pain syndrome. Discussed with the patient and the patient's family about the risks and benefits on narcotics with possibility of respiratory depression. The patient may need pain management consult as an outpatient. Melo Houston MD [facility]ITAL[facility]
[2017-10-02] MEDS: Oxycodone/Acetaminophen 5/325 mg Tab PO PRN ×4 (00:15→18:27)
[2017-10-02] MEDS: Albuterol-Ipratrop 3 mg / 0.5 (3 ml) UD INH SCH ×4 (07:20→19:57)
[2017-10-02 07:28] LABS: HEMOGLOBIN 12.1 g/dL (12.0-18.0); MEAN CELL VOLUME 90.4 fl (80.0-94.0); MEAN CORPUSCULAR HGB CONC 35.4 g/dL (33.0-37.0); RBC 3.78 Mil/uL (4.40-5.90); RED CELL DISTRIBUTION WIDTH 14.4 % (11.5-14.5); WHITE BLOOD COUNT 8.6 K/uL (4.8-10.8)
[2017-10-02 07:57] LABS: BLOOD UREA NITROGEN 10 mg/dl (9-20); CALCIUM 8.3 mg/dL (8.4-10.2); GFR AFRICAN-AMERICAN > 60; GFR NON-AFRICAN AMERICAN > 60
[2017-10-02] MEDS ORDERED: Potassium Chloride 20 mEq ER Tab PO ONE (08:27)
[2017-10-02] MEDS: Enoxaparin 40 mg Syringe SC SCH (08:42)
[2017-10-02] MEDS: Potassium Chloride 20 mEq/15 ml LIQ UD PO SCH (08:43)
[2017-10-02] MEDS: Azithromycin 500 MG in Sodium Chloride 0.9% 250 ML IVPB SCH (10:38)
--- NOTE | 2017-10-02 11:25 | PN ---
DATE: 10/02/2017 CRITICAL CARE PROGRESS NOTE SUBJECTIVE: The patient in ICU, bed 434. Time spent 35 minutes. The patient is seen and evaluated at the bedside. Past medical, surgical, family and social history reviewed. A 67-year-old male chronic smoker with chronic obstructive pulmonary disease and chronic back pain on multiple narcotics, admitted with hypercapnic hypoxic respiratory failure, self-extubated, currently on oxygen supplement by nasal cannula. Overnight telemetry sinus rhythm, normotensive, afebrile, appears anxious, once get more narcotics. This morning, remains alert and awake, follows commands, appropriate, asking for Percocet more than every 6 hours. Denies shortness of breath at rest. No chest pain or palpitation. Had full breakfast. OBJECTIVE: VITAL SIGNS: Temperature 98.6, heart rate 82 and regular, blood pressure 157/81, respiratory rate 19 thoracoabdominal, and saturation 96% oxygen supplement 2 liters nasal cannula. INTAKE AND OUTPUT: Intake 378, output 750, negative 372. Weight 170 pounds. HEENT: Pupils reactive. Conjunctivae pink. Sclerae are white. NECK: Supple, short neck. Reduced oropharyngeal space. CHEST: Bilateral breath sounds, diminished in intensity. Prolonged expiration. No audible wheezing. HEART: Rhythm regular, distant. No audible murmur. ABDOMEN: Bowel sounds present. Soft. Liver and spleen not palpable. No palpable mass. Bladder not distended. EXTREMITIES: Trace edema. DP palpable, symmetric. Capillary refill less than 2 seconds. NEUROLOGIC: Alert and awake, but appears anxious, needs more pain medications. Moves all four extremities. No cranial nerve deficits. No motor or sensory impairment. SKIN: Without rash. CURRENT MEDICATIONS: DuoNebs 3 mL via nebulizer every 6 hours, ceftriaxone 1 g IV daily, Zithromax 100 mg IV daily, Lovenox 40 subcu daily, morphine 4 mg IV every 4 hours p.r.n. for pain, nicotine patch 14 mg daily, Percocet 1 tablet every 6 hours p.r.n., Protonix 40 daily, and potassium chloride 20 mEq daily. LABORATORY DATA: WBC 8.6, hemoglobin 12.1, hematocrit 34.2, and platelet count . PT 14.1, INR 1.3, and PTT 35.2. SMA-7; sodium 140, potassium 2.8, chloride 100, CO2 30, blood urea nitrogen 10, creatinine 0.4, random glucose 95, calcium 8.3, and magnesium 1.7. Urinalysis negative. Urine drug screen; positive opioids. Urine Legionella negative. Microbiology; blood culture coagulase negative Staph probably a contamination. CHEST X-RAY: No significant pleural effusion. No pneumothorax, improving bilateral infiltrates at the particular day at the left base. Right central venous line in position. IMPRESSION AND PLAN: 1. Neuro: Alert and awake, follows commands appropriate, appears anxious, suspect narcotic withdrawal. 2. Pulmonary: Chronic obstructive pulmonary disease, on bronchodilator, increased deep breathing and expectoration. Chest PT as needed continue as needed. 3. Cardiac: No acute issues. Telemetry without cardiac arrhythmia. 4. Gastrointestinal: Hypoalbuminemia secondary to malnutrition, increase heart-healthy diet. 5. Renal: Hypokalemia. Potassium supplemented. BUN and creatinine within normal limits. 6. Hematology: Mild leukocytosis, improved. Hemoglobin and hematocrit stable. Platelet count normal. 7. Infectious disease: Suspected pneumonia based on bilateral infiltrate, improving, on ceftriaxone and azithromycin. 8. Continue DVT and GI prophylaxis. 9. Continue analgesics for chronic back ache. Monitor for narcotic withdrawal symptoms. The patient wants to sign out against the medical advice. Consult the risk of his action and to continue antibiotics. Continue GI and DVT prophylaxis. We will discuss with family and patient regarding followup care. PMD has been called, no response yet. Melo Houston MD [facility]
--- NOTE | 2017-10-02 14:46 | CP.PCM.PN ---
Subjective - Date & Time of Evaluation Date of Evaluation: 10/02/17 Time of Evaluation: 16:30 - Subjective Subjective: Pt seen and examined in ICU, awake and responsive, on O2NC, breathing spontaneous, feels well Objective - Vital Signs/Intake and Output Vital Signs (last 24 hours): Temp Pulse Resp BP Pulse Ox 98.4 F 83 17 122/79 97 10/02/17 12:00 10/02/17 12:00 10/02/17 12:00 10/02/17 12:00 10/02/17 12:00 Intake and Output: 10/02/17 10/02/17 06:59 18:59 Intake Total 354 Output Total 600 Balance -246 - Medications Medications: Current Medications Albuterol/Ipratropium (Duoneb 3 Mg/0.5 Mg (3 Ml) Ud) 3 ml INH RQID [facility] Last Admin: 10/02/17 11:24 Dose: 3 ml Enoxaparin Sodium (Lovenox) 40 mg SC DAILY [facility] PRN Reason: Protocol Last Admin: 10/02/17 08:42 Dose: 40 mg Azithromycin 500 mg/ Sodium (Chloride) 250 mls @ 250 mls/hr IVPB DAILY [facility] PRN Reason: Protocol Last Admin: 10/02/17 10:38 Dose: 250 mls/hr Ceftriaxone Sodium 1 gm/ (Sodium Chloride) 100 mls @ 100 mls/hr IVPB DAILY [facility] PRN Reason: Protocol Last Admin: 10/02/17 08:43 Dose: 100 mls/hr Morphine Sulfate (Morphine) 4 mg IVP Q4 PRN PRN Reason: Pain, moderate (4-7) Last Admin: 10/01/17 08:52 Dose: 4 mg Nicotine (Nicoderm Cq) 1 patch TD DAILY [facility] Last Admin: 10/02/17 08:39 Dose: 1 patch Oxycodone/Acetaminophen (Percocet 5/325 Mg Tab) 1 tab PO Q6 PRN PRN Reason: Pain, moderate (4-7) Stop: 10/04/17 08:40 Last Admin: 10/02/17 12:07 Dose: 1 tab Pantoprazole Sodium (Protonix Inj) 40 mg IVP DAILY [facility] Last Admin: 10/02/17 08:43 Dose: 40 mg Potassium Chloride (Potassium Chloride Oral Soln) 20 meq PO DAILY [facility] Last Admin: 10/02/17 08:43 Dose: 20 meq - Labs Labs: 10/02/17 06:00 10/02/17 06:00 PT 14.1 Seconds (9.8-13.1) H 09/30/17 04:20 INR 1.3 (0.9-1.2) H 09/30/17 04:20 APTT 35.2 Seconds (25.6-37.1) 09/30/17 04:20 - Constitutional Appears: Well, No Acute Distress - Head Exam Head Exam: ATRAUMATIC, NORMAL INSPECTION - Eye Exam Eye Exam: EOMI, Normal appearance Pupil Exam: NORMAL ACCOMODATION, PERRL - ENT Exam ENT Exam: Mucous Membranes Moist, Normal Exam - Neck Exam Neck Exam: Full ROM - Respiratory Exam Respiratory Exam: Clear to Ausculation Bilateral, NORMAL BREATHING PATTERN - Cardiovascular Exam Cardiovascular Exam: REGULAR RHYTHM - GI/Abdominal Exam GI & Abdominal Exam: Soft, Normal Bowel Sounds - Neurological Exam Neurological Exam: Alert, Awake, Oriented x3 - Psychiatric Exam Psychiatric exam: Normal Affect, Normal Mood - Skin Skin Exam: Normal Color, Warm Assessment and Plan - Assessment and Plan (Free Text) Assessment: 67 y/o with acute respiratory distress 1. Acute Hypercapneic, Hypoxemic Resp Failure 2 Bilateral lower lobe pneumonia and Metabolic Encephalopathy 2. COPD / Emphysema 3. Azotemia / Dehydration 4. HTN 5. Opioid Dependency PLAN: 1. MV support, Check repeat ABG, watch for post-hypercapneic resp alkalosis. Duonebs for any wheezing 2. Check sputum c&s, blood culture. Last hospital admission in Mar 2017 for Pneumonia and Sepsis, empiric Zosyn and Vanco started in ER. Check urine for legionella, mycoplasma titers. Get Pulm eval. 3. IVF hydration, nicotine patch 4. O2 titration, off CPAP, doing well on WI
[2017-10-03] MEDS: Oxycodone/Acetaminophen 5/325 mg Tab PO PRN ×3 (00:29→19:26)
[2017-10-03 05:41] LABS: HEMOGLOBIN 12.6 g/dL (12.0-18.0); MEAN CELL VOLUME 90.7 fl (80.0-94.0); MEAN CORPUSCULAR HEMOGLOBIN 31.4 pg (27.0-31.0); MEAN CORPUSCULAR HGB CONC 34.6 g/dL (33.0-37.0); RED CELL DISTRIBUTION WIDTH 14.4 % (11.5-14.5); WHITE BLOOD COUNT 9.1 K/uL (4.8-10.8)
[2017-10-03 06:13] LABS: BLOOD UREA NITROGEN 9 mg/dl (9-20); GFR AFRICAN-AMERICAN > 60; GFR NON-AFRICAN AMERICAN > 60
[2017-10-03 06:14] LABS: CALCIUM 8.5 mg/dL (8.4-10.2)
--- NOTE | 2017-10-03 07:42 | CP.CCUPN ---
CCU Subjective - Physician Review Subjective (Free Text): 10/03/17 14:30 The patient was Seen/interviewed and examined by me at the bedside during ICU round, Medical records reviewed and Management issues were discussed and formulated with the house staff. Events reviewed Clinically improving, No Vasopressors Improved respiratory status, on BIPAP only at night Breathing unlabored, on room air O2 sat 92%. Sitting comfortable in chair, NAD Alert and oriented x3. Denies any chest pain, Less SOB CCU Objective - Vital Signs / Intake & Output Vital Signs (Last 4 hours): Vital Signs Temp Pulse Resp BP Pulse Ox 10/03/17 06:00 80 30 H 154/89 H 94 L 10/03/17 04:00 99.1 F 84 23 154/81 H 92 L Intake and Output (Last 8hrs): Intake & Output 10/02/17 10/03/17 10/03/17 22:59 06:59 14:59 Output Total 500 375 Balance -500 -375 Weight 166 lb Output: Urine 500 375 Urethral (Rowell) 500 375 Other: # Voids Urethral (Rowell) 1 3 - Physical Exam Head: Positive for: Atraumatic, Normocephalic Pupils: Positive for: PERRL Extroacular Muscles: Positive for: EOMI Conjunctiva: Positive for: Normal Ears: Positive for: Normal Mouth: Positive for: Moist Mucous Membranes Nose (Internal): Positive for: Normal Inspection Neck: Positive for: Normal Range of Motion, Trachea Midline. Negative for: Meningeal Signs, MIDLINE TENDERNESS, Paraspinal Tenderness, JVD, Lymphadenopathy , Bruit, Other Respiratory/Chest: Positive for: Clear to Auscultation, Decreased Breath Sounds , Rhonchi. Negative for: Respiratory Distress, Accessory Muscle Use, Wheezes Cardiovascular: Positive for: Regular Rate and Rhythm, Normal S1, S2, Peripheal Pulses Present. Negative for: Murmurs, Irregular Rhythm Back: Negative for: CVA Tenderness Neurological: Positive for: GCS=15, CN II-XII Intact, Speech Normal, Motor Func Grossly Intact, Normal Sensory Function Psychiatric: Positive for: Alert, Oriented x 3 - Medications Active Medications: Active Medications Generic Name Dose Route Start Last Admin Trade Name Freq PRN Reason Stop Dose Admin Albuterol/Ipratropium 3 ml 09/29/17 16:45 10/02/17 19:57 Duoneb 3 Mg/0.5 Mg (3 Ml) Ud INH 3 ml RQID [facility] Administration Enoxaparin Sodium 40 mg 10/01/17 09:00 10/02/17 08:42 Lovenox SC 40 mg DAILY [facility] Administration Protocol Nicotine 1 patch 09/30/17 11:30 10/02/17 08:39 Nicoderm Cq TD 1 patch DAILY [facility] Administration Oxycodone/Acetaminophen 1 tab 10/01/17 08:39 10/03/17 06:33 Percocet 5/325 Mg Tab PO 10/04/17 08:40 1 tab Q6 PRN Administration Pain, moderate (4-7) Pantoprazole Sodium 40 mg 09/29/17 16:30 10/02/17 08:43 Protonix Inj IVP 40 mg DAILY [facility] Administration Potassium Chloride 20 meq 10/01/17 09:00 10/02/17 08:43 Potassium Chloride Oral Soln PO 20 meq DAILY [facility] Administration - Patient Studies Lab Studies: Microbiology Studies 09/29/17 08:39 Gram Stain - Final Trachasp Sputum Culture - Final Yeast Species 09/29/17 15:22 S.aureus & Coag-Neg Staph PNA FISH - Final Blood-Venous Blood Culture - Final Coagulase Neg Staphylococcus Gram Stain - Final Lab Studies 10/03/17 10/03/17 10/02/17 Range/Units 04:20 04:20 08:28 WBC 9.1 (4.8-10.8) K/uL RBC 4.00 L (4.40-5.90) Mil/uL Hgb 12.6 (12.0-18.0) g/dL Hct 36.3 (35.0-51.0) % MCV 90.7 (80.0-94.0) fl MCH 31.4 H (27.0-31.0) pg MCHC 34.6 (33.0-37.0) g/dL RDW 14.4 (11.5-14.5) % Plt Count 225 (130-400) K/uL Sodium 139 (132-148) mmol/l Potassium 3.4 L (3.6-5.0) MMOL/L Chloride 101 (98-107) mmol/L Carbon Dioxide 25 (22-30) mmol/L Anion Gap 16 (10-20) BUN 9 (9-20) mg/dl Creatinine 0.4 L (0.8-1.5) mg/dl Est GFR ( Amer) > 60 Est GFR (Non-Af Amer) > 60 Random Glucose 96 (75-110) mg/dL Calcium 8.5 (8.4-10.2) mg/dL Magnesium 1.7 (1.6-2.3) MG/DL 10/02/17 Range/Units 06:00 WBC (4.8-10.8) K/uL RBC (4.40-5.90) Mil/uL Hgb (12.0-18.0) g/dL Hct (35.0-51.0) % MCV (80.0-94.0) fl MCH (27.0-31.0) pg MCHC (33.0-37.0) g/dL RDW (11.5-14.5) % Plt Count (130-400) K/uL Sodium 140 (132-148) mmol/l Potassium 2.8 L (3.6-5.0) MMOL/L Chloride 100 (98-107) mmol/L Carbon Dioxide 30 (22-30) mmol/L Anion Gap 13 (10-20) BUN 10 (9-20) mg/dl Creatinine 0.4 L (0.8-1.5) mg/dl Est GFR ( Amer) > 60 Est GFR (Non-Af Amer) > 60 Random Glucose 95 (75-110) mg/dL Calcium 8.3 L (8.4-10.2) mg/dL Magnesium (1.6-2.3) MG/DL Laboratory Results - last 24 hr 10/02/17 10/02/17 10/03/17 06:00 08:28 04:20 WBC 9.1 RBC 4.00 L Hgb 12.6 Hct 36.3 MCV 90.7 MCH 31.4 H MCHC 34.6 RDW 14.4 Plt Count 225 Sodium 140 Potassium 2.8 L Chloride 100 Carbon Dioxide 30 Anion Gap 13 BUN 10 Creatinine 0.4 L Est GFR ( Amer) > 60 Est GFR (Non-Af Amer) > 60 Random Glucose 95 Calcium 8.3 L Magnesium 1.7 10/03/17 04:20 WBC RBC Hgb Hct MCV MCH MCHC RDW Plt Count Sodium 139 Potassium 3.4 L Chloride 101 Carbon Dioxide 25 Anion Gap 16 BUN 9 Creatinine 0.4 L Est GFR ( Amer) > 60 Est GFR (Non-Af Amer) > 60 Random Glucose 96 Calcium 8.5 Magnesium Fingerstick Blood Sugar Results: 123 Review of Systems - Constitutional Constitutional: absent: Fever, Chills, Sweats, Weakness, Malaise - Cardiovascular Cardiovascular: absent: Chest Pain, Chest Pain at Rest, Chest Pain with Activity , Claudication, Diaphoresis - Respiratory Respiratory: Cough, Dyspnea, Dyspnea on Exertion. absent: Hemoptysis, Wheezing , Snoring, Stridor - Gastrointestinal Gastrointestinal: absent: Abdominal Pain, Nausea, Vomiting Critical Care Progress Note - Extremities/Vascular Does the Patient have a Central Venous Catheter?: Yes Does the Patient need a Central Venous Catheter?: No (Will remove today) Does the Patient have a Rowell Catheter?: No Does the Patient need a Rowell Catheter?: No - Prophylaxis GI Prophylaxis GI: PPI - Prophylaxis DVT Prophylaxis DVT: Lovenox - Nutrition Nutrition: Nutrition Category Date Time Status Regular Diet [DIET] Diets 10/01/17 Breakfast Active Assessment/Plan (1) Acute respiratory failure with hypercapnia Current Visit: Yes Status: Acute Comment: Extubated Breathing unlabored, on room air O2 sat 92%. Wean off BIPAP (2) COPD (chronic obstructive pulmonary disease) with acute bronchitis Current Visit: No Status: Acute Comment: Albuterol/Ipratropium (Duoneb 3 Mg/0.5 Mg (3 Ml) Ud) 3 ml INH RQID Azithromycin 500 mg IVPB DAILY x 5 days Ceftriaxone 1 gm IVPB DAILY x 7 days (3) Opiate abuse, episodic Current Visit: No Status: Acute (4) Tobacco dependence Current Visit: Yes Status: Acute Comment: Nicotine (Nicoderm Cq) 1 patch TD DAILY [facility]
[2017-10-03] MEDS: Albuterol-Ipratrop 3 mg / 0.5 (3 ml) UD INH SCH ×4 (08:04→19:04)
[2017-10-03] MEDS: Potassium Chloride 20 mEq/15 ml LIQ UD PO SCH (08:33)
[2017-10-03] MEDS: Enoxaparin 40 mg Syringe SC SCH (08:34)
--- NOTE | 2017-10-03 11:20 | PN ---
DATE: 10/03/2017 SUBJECTIVE: The patient is seen and examined. Interim events noted. Consults noted and appreciated. The patient remains in Intensive Care Unit. Feels better. Complains of back pain, which is chronic. No chest pain, shortness of breath, coughing or symptoms. PHYSICAL EXAMINATION: GENERAL: The patient is in no acute distress. VITAL SIGNS: Stable. HEART: S1 and S2, normal and regular. LUNGS: Good bilateral air exchange. ABDOMEN: Soft and nontender. EXTREMITIES: No edema. No calf swelling. No tenderness. No acute ischemia. CENTRAL NERVOUS SYSTEM: Essentially unchanged. LABORATORY DATA: Available diagnostic data reviewed. PLAN: . Overall, the patient's general medical condition is stable. Plan as ordered. Ramana Melvin MD
[2017-10-04] MEDS: Oxycodone/Acetaminophen 5/325 mg Tab PO PRN ×4 (02:38→22:10)
[2017-10-04 05:26] LABS: HEMOGLOBIN 13.2 g/dL (12.0-18.0); MEAN CELL VOLUME 91.7 fl (80.0-94.0); MEAN CORPUSCULAR HEMOGLOBIN 31.2 pg (27.0-31.0); MEAN CORPUSCULAR HGB CONC 34.1 g/dL (33.0-37.0); RBC 4.24 Mil/uL (4.40-5.90); RED CELL DISTRIBUTION WIDTH 14.7 % (11.5-14.5); WHITE BLOOD COUNT 10.8 K/uL (4.8-10.8)
[2017-10-04 05:39] LABS: BLOOD UREA NITROGEN 11 mg/dl (9-20); CALCIUM 8.3 mg/dL (8.4-10.2); GFR AFRICAN-AMERICAN > 60; GFR NON-AFRICAN AMERICAN > 60
--- NOTE | 2017-10-04 07:40 | CP.CCUPN ---
CCU Subjective - Physician Review Subjective (Free Text): 10/03/17 14:30 The patient was Seen/interviewed and examined by me at the bedside during ICU round, Medical records reviewed and Management issues were discussed and formulated with the house staff. Events reviewed Clinically improving, No Vasopressors Improved respiratory status, on BIPAP only at night Breathing unlabored, on room air O2 sat 92%. Sitting comfortable in chair, NAD Alert and oriented x3. Denies any chest pain, Less SOB Stable for transfer out of ICU to Med/Surg floor CCU Objective - Vital Signs / Intake & Output Vital Signs (Last 4 hours): Vital Signs Temp Pulse Resp BP Pulse Ox 10/04/17 06:00 96 H 25 H 138/74 90 L 10/04/17 04:00 98.8 F 94 H 26 H 131/78 91 L Intake and Output (Last 8hrs): Intake & Output 10/03/17 10/04/17 10/04/17 22:59 06:59 14:59 Output Total 450 Balance -450 Output: Urine 450 Urethral (Rowell) 450 Other: # Voids Urethral (Rowell) 3 - Physical Exam Head: Positive for: Atraumatic, Normocephalic Pupils: Positive for: PERRL Extroacular Muscles: Positive for: EOMI Conjunctiva: Positive for: Normal Ears: Positive for: Normal Mouth: Positive for: Moist Mucous Membranes Nose (Internal): Positive for: Normal Inspection Neck: Positive for: Normal Range of Motion, Trachea Midline. Negative for: Meningeal Signs, MIDLINE TENDERNESS, Paraspinal Tenderness, JVD, Lymphadenopathy , Bruit, Other Respiratory/Chest: Positive for: Clear to Auscultation, Decreased Breath Sounds , Rhonchi. Negative for: Respiratory Distress, Accessory Muscle Use, Wheezes Cardiovascular: Positive for: Regular Rate and Rhythm, Normal S1, S2, Peripheal Pulses Present. Negative for: Murmurs, Irregular Rhythm Back: Negative for: CVA Tenderness Neurological: Positive for: GCS=15, CN II-XII Intact, Speech Normal, Motor Func Grossly Intact, Normal Sensory Function Psychiatric: Positive for: Alert, Oriented x 3 - Medications Active Medications: Active Medications Generic Name Dose Route Start Last Admin Trade Name Freq PRN Reason Stop Dose Admin Albuterol/Ipratropium 3 ml 09/29/17 16:45 10/03/17 19:04 Duoneb 3 Mg/0.5 Mg (3 Ml) Ud INH 3 ml RQID [facility]EN Administration Enoxaparin Sodium 40 mg 10/01/17 09:00 10/03/17 08:34 Lovenox SC 40 mg DAILY [facility] Administration Protocol Nicotine 1 patch 09/30/17 11:30 10/03/17 08:33 Nicoderm Cq TD 1 patch DAILY [facility] Administration Oxycodone/Acetaminophen 1 tab 10/01/17 08:39 10/04/17 02:38 Percocet 5/325 Mg Tab PO 10/04/17 08:40 1 tab Q6 PRN Administration Pain, moderate (4-7) Pantoprazole Sodium 40 mg 09/29/17 16:30 10/03/17 08:33 Protonix Inj IVP 40 mg DAILY [facility] Administration Potassium Chloride 20 meq 10/01/17 09:00 10/03/17 08:33 Potassium Chloride Oral Soln PO 20 meq DAILY [facility] Administration - Patient Studies Lab Studies: Lab Studies 10/04/17 10/04/17 09/29/17 Range/Units 04:20 04:20 08:02 WBC 10.8 (4.8-10.8) K/uL RBC 4.24 L (4.40-5.90) Mil/uL Hgb 13.2 (12.0-18.0) g/dL Hct 38.9 (35.0-51.0) % MCV 91.7 (80.0-94.0) fl MCH 31.2 H (27.0-31.0) pg MCHC 34.1 (33.0-37.0) g/dL RDW 14.7 H (11.5-14.5) % Plt Count 255 (130-400) K/uL Sodium 140 (132-148) mmol/l Potassium 3.7 (3.6-5.0) MMOL/L Chloride 100 (98-107) mmol/L Carbon Dioxide 25 (22-30) mmol/L Anion Gap 19 (10-20) BUN 11 (9-20) mg/dl Creatinine 0.5 L (0.8-1.5) mg/dl Est GFR ( Amer) > 60 Est GFR (Non-Af Amer) > 60 Random Glucose 93 (75-110) mg/dL Calcium 8.3 L (8.4-10.2) mg/dL Mycoplasma pneumon IgM 279 (<770) U/mL Laboratory Results - last 24 hr 09/29/17 10/04/17 10/04/17 08:02 04:20 04:20 WBC 10.8 RBC 4.24 L Hgb 13.2 Hct 38.9 MCV 91.7 MCH 31.2 H MCHC 34.1 RDW 14.7 H Plt Count 255 Sodium 140 Potassium 3.7 Chloride 100 Carbon Dioxide 25 Anion Gap 19 BUN 11 Creatinine 0.5 L Est GFR ( Amer) > 60 Est GFR (Non-Af Amer) > 60 Random Glucose 93 Calcium 8.3 L Mycoplasma pneumon IgM 279 Fingerstick Blood Sugar Results: 123 Critical Care Progress Note - Nutrition Nutrition: Nutrition Category Date Time Status Regular Diet [DIET] Diets 10/01/17 Breakfast Active Assessment/Plan (1) Acute respiratory failure with hypercapnia Current Visit: Yes Status: Acute Comment: Extubated Breathing unlabored, on room air O2 sat 92%. Wean off BIPAP Stable for transfer out of ICU to MedSur floor (2) COPD (chronic obstructive pulmonary disease) with acute bronchitis Current Visit: No Status: Chronic Comment: Albuterol/Ipratropium (Duoneb 3 Mg/0.5 Mg (3 Ml) Ud) 3 ml INH RQID Azithromycin 500 mg DAILY x total 5 days Ceftriaxone 1 gm IVPB DAILY x total 7 days (3) Opiate abuse, episodic Current Visit: No Status: Acute (4) Tobacco dependence Current Visit: Yes Status: Acute Comment: Nicotine (Nicoderm Cq) 1 patch TD DAILY [facility]
[2017-10-04] MEDS: Albuterol-Ipratrop 3 mg / 0.5 (3 ml) UD INH SCH ×4 (07:52→19:44)
[2017-10-04] MEDS: Enoxaparin 40 mg Syringe SC SCH (08:14)
[2017-10-04] MEDS: Potassium Chloride 20 mEq/15 ml LIQ UD PO SCH (08:14)
--- NOTE | 2017-10-04 08:44 | CP.PCM.PN ---
Subjective - Date & Time of Evaluation Date of Evaluation: 10/04/17 Time of Evaluation: 08:15 - Subjective Subjective: Patient seen and examined in ICU this morning w/ Dr. Melvin. there are no acute events overnight, NAD. Patient is awake, responsive, and reports feeling much improved. Objective - Vital Signs/Intake and Output Vital Signs (last 24 hours): Temp Pulse Resp BP Pulse Ox 98.8 F 96 H 25 H 138/74 90 L 10/04/17 04:00 10/04/17 06:00 10/04/17 06:00 10/04/17 06:00 10/04/17 06:00 Intake and Output: 10/04/17 10/04/17 06:59 18:59 Output Total 450 Balance -450 - Medications Medications: Current Medications Albuterol/Ipratropium (Duoneb 3 Mg/0.5 Mg (3 Ml) Ud) 3 ml INH RQID [facility] Last Admin: 10/04/17 07:52 Dose: 3 ml Azithromycin (Zithromax) 250 mg PO DAILY [facility] PRN Reason: Protocol Stop: 10/07/17 09:01 Enoxaparin Sodium (Lovenox) 40 mg SC DAILY [facility] PRN Reason: Protocol Last Admin: 10/04/17 08:14 Dose: 40 mg Ceftriaxone Sodium 1,000 mg/ (PED IV SYRINGE) 0 mls @ 100 mls/hr IVPB DAILY [facility] PRN Reason: Protocol Stop: 10/07/17 09:01 Nicotine (Nicoderm Cq) 1 patch TD DAILY [facility] Last Admin: 10/04/17 08:14 Dose: 1 patch Potassium Chloride (Potassium Chloride Oral Soln) 20 meq PO DAILY [facility] Last Admin: 10/04/17 08:14 Dose: 20 meq - Labs Labs: 10/04/17 04:20 10/04/17 04:20 PT 14.1 Seconds (9.8-13.1) H 09/30/17 04:20 INR 1.3 (0.9-1.2) H 09/30/17 04:20 APTT 35.2 Seconds (25.6-37.1) 09/30/17 04:20 - Constitutional Appears: No Acute Distress - Head Exam Head Exam: ATRAUMATIC, NORMAL INSPECTION, NORMOCEPHALIC - Eye Exam Eye Exam: Normal appearance - ENT Exam ENT Exam: Mucous Membranes Moist - Neck Exam Neck Exam: Full ROM. absent: Tenderness - Respiratory Exam Respiratory Exam: Clear to Ausculation Bilateral. absent: Accessory Muscle Use , Decreased Breath Sounds, Rales, Rhonchi, Wheezes, Respiratory Distress - Cardiovascular Exam Cardiovascular Exam: REGULAR RHYTHM. absent: Tachycardia - Extremities Exam Extremities Exam: Normal Inspection. absent: Calf Tenderness, Pedal Edema, Tenderness - Neurological Exam Neurological Exam: Alert, Awake, Oriented x3 - Skin Skin Exam: Dry, Intact, Normal Color, Warm Assessment and Plan (1) Acute respiratory failure with hypercapnia Status: Acute (2) Pneumonia Status: Acute (3) COPD (chronic obstructive pulmonary disease) with acute bronchitis Status: Chronic - Assessment and Plan (Free Text) Plan: c/w present management afebrile, non-tachycardic, normotensive breathing improved, on O2 NC, requiring BiPap only at night aztihromycin 250 mg PO daily day 1 ceftriaxone 1 gm IV daily day 1 duoneb QID nicotine patch daily prophylactic measures: DVT lovenox 40 mg SC daily chest PT ordered monitor for acute changes stable for transfer to [facility]
[2017-10-05] MEDS: Albuterol-Ipratrop 3 mg / 0.5 (3 ml) UD INH SCH ×2 (07:49→11:21)
[2017-10-05 08:30] VITALS: BP 116/74; RESP 20; TEMP 98.7
--- NOTE | 2017-10-05 08:34 | CP.PCM.PN ---
Subjective - Date & Time of Evaluation Date of Evaluation: 10/05/17 Time of Evaluation: 08:05 - Subjective Subjective: Patient seen and examined this morning at bedside w/ Dr. Melvin. There are no acute events overnight, NAD. Patient just finished duoneb treatment and is laying down in bed comfortably. Patient is awake, responsive, and reports feeling much improved. Patient denies headaches, chest pain, dizziness, SOB, abdominal pain, nausea, vomiting, diarrhea, dysuria, or fever. Objective - Vital Signs/Intake and Output Vital Signs (last 24 hours): Temp Pulse Resp BP Pulse Ox 98.7 F 82 20 116/74 90 L 10/05/17 08:29 10/05/17 08:29 10/05/17 08:29 10/05/17 08:29 10/05/17 08:29 Intake and Output: 10/05/17 10/05/17 06:59 18:59 Intake Total 10 Output Total 180 Balance -170 - Medications Medications: Current Medications Albuterol/Ipratropium (Duoneb 3 Mg/0.5 Mg (3 Ml) Ud) 3 ml INH RQID [facility] Last Admin: 10/05/17 07:49 Dose: 3 ml Azithromycin (Zithromax) 250 mg PO DAILY [facility] PRN Reason: Protocol Stop: 10/07/17 09:01 Last Admin: 10/04/17 10:10 Dose: 250 mg Enoxaparin Sodium (Lovenox) 40 mg SC DAILY [facility]EN PRN Reason: Protocol Last Admin: 10/04/17 08:14 Dose: 40 mg Ceftriaxone Sodium 1 gm/ (Sodium Chloride) 100 mls @ 100 mls/hr IVPB DAILY [facility] PRN Reason: Protocol Stop: 10/07/17 09:01 Last Admin: 10/04/17 10:10 Dose: 100 mls/hr Nicotine (Nicoderm Cq) 1 patch TD DAILY [facility] Last Admin: 10/04/17 08:14 Dose: 1 patch Oxycodone/Acetaminophen (Percocet 5/325 Mg Tab) 1 tab PO Q6 PRN PRN Reason: pain level 4-7 Stop: 10/07/17 10:12 Last Admin: 10/04/17 22:10 Dose: 1 tab Potassium Chloride (Potassium Chloride Oral Soln) 20 meq PO DAILY [facility] Last Admin: 10/04/17 08:14 Dose: 20 meq - Labs Labs: 10/04/17 04:20 10/04/17 04:20 PT 14.1 Seconds (9.8-13.1) H 09/30/17 04:20 INR 1.3 (0.9-1.2) H 09/30/17 04:20 APTT 35.2 Seconds (25.6-37.1) 09/30/17 04:20 - Constitutional Appears: Non-toxic, No Acute Distress - Head Exam Head Exam: ATRAUMATIC, NORMAL INSPECTION, NORMOCEPHALIC - Eye Exam Eye Exam: Normal appearance - ENT Exam ENT Exam: Mucous Membranes Moist - Neck Exam Neck Exam: Full ROM. absent: Tenderness - Respiratory Exam Respiratory Exam: Clear to Ausculation Bilateral. absent: Accessory Muscle Use , Decreased Breath Sounds, Rales, Rhonchi, Wheezes, Respiratory Distress - Cardiovascular Exam Cardiovascular Exam: REGULAR RHYTHM. absent: Tachycardia - GI/Abdominal Exam GI & Abdominal Exam: Soft, Normal Bowel Sounds. absent: Distended, Tenderness - Extremities Exam Extremities Exam: absent: Calf Tenderness, Pedal Edema, Tenderness - Neurological Exam Neurological Exam: Alert, Awake, Oriented x3 - Skin Skin Exam: Dry, Intact, Normal Color, Warm Assessment and Plan (1) Acute respiratory failure with hypercapnia Status: Acute (2) Pneumonia Status: Acute (3) COPD (chronic obstructive pulmonary disease) with acute bronchitis Status: Chronic - Assessment and Plan (Free Text) Plan: c/w present management afebrile, non-tachycardic, normotensive breathing much improved, saturating 93% on room air aztihromycin 250 mg PO daily day 2 ceftriaxone 1 gm IV daily day 2 duoneb QID nicotine patch daily prophylactic measures: DVT lovenox 40 mg SC daily f/u repeat CXR c/w chest PT c/w PT/OT monitor for acute changes
[2017-10-05] MEDS: Oxycodone/Acetaminophen 5/325 mg Tab PO PRN (09:06)
[2017-10-05] MEDS: Enoxaparin 40 mg Syringe SC SCH (09:07)
[2017-10-05] MEDS: Potassium Chloride 20 mEq/15 ml LIQ UD PO SCH (09:08)
--- NOTE | 2017-10-05 10:14 | RAD ---
HISTORY: F/u pneumonia COMPARISON: 09/30/2017. FINDINGS: LUNGS: The lungs are clear. PLEURA: No significant pleural effusion identified, no pneumothorax apparent. CARDIOVASCULAR: Normal. OSSEOUS STRUCTURES: No significant abnormalities. VISUALIZED UPPER ABDOMEN: Normal. OTHER FINDINGS: None. IMPRESSION: No active pulmonary disease.
[2017-10-05 11:01] VITALS: PULSE 90; O2SAT 92
--- NOTE | 2017-10-05 12:32 | CP.PCM.DIS ---
Provider - Provider Date of Admission: 09/29/17 15:46 Attending physician: Ramana Melvin MD Time Spent in preparation of Discharge (in minutes): 15 Diagnosis - Discharge Diagnosis (1) Acute respiratory failure with hypercapnia Status: Acute (2) Pneumonia Status: Acute (3) COPD (chronic obstructive pulmonary disease) with acute bronchitis Status: Chronic Hospital Course - Lab Results Lab Results: Micro Results 09/29/17 08:39 Trachasp Gram Stain - Final 09/29/17 08:39 Trachasp Sputum Culture - Final Yeast Species 09/29/17 15:22 Blood-Venous S.aureus & Coag-Neg Staph PNA FISH - Final 09/29/17 15:22 Blood-Venous Blood Culture - Final Coagulase Neg Staphylococcus 09/29/17 15:22 Blood-Venous Gram Stain - Final 09/29/17 08:20 Naris MRSA Culture (Admit) - Final MRSA NOT DETECTED 09/29/17 15:00 Urine,Catheterized Urine Culture - Final No Growth (<1,000 CFU/ML) Most Recent Lab Values WBC 10.8 K/uL (4.8-10.8) 10/04/17 04:20 RBC 4.24 Mil/uL (4.40-5.90) L 10/04/17 04:20 Hgb 13.2 g/dL (12.0-18.0) 10/04/17 04:20 Hct 38.9 % (35.0-51.0) 10/04/17 04:20 MCV 91.7 fl (80.0-94.0) 10/04/17 04:20 MCH 31.2 pg (27.0-31.0) H 10/04/17 04:20 MCHC 34.1 g/dL (33.0-37.0) 10/04/17 04:20 RDW 14.7 % (11.5-14.5) H 10/04/17 04:20 Plt Count 255 K/uL (130-400) 10/04/17 04:20 MPV 8.4 fl (7.2-11.7) 10/01/17 04:57 Neut % (Auto) 81.1 % (50.0-75.0) H 10/01/17 04:57 Lymph % (Auto) 9.8 % (20.0-40.0) L 10/01/17 04:57 [place] % (Auto) 8.7 % (0.0-10.0) 10/01/17 04:57 Eos % (Auto) 0.2 % (0.0-4.0) 10/01/17 04:57 Baso % (Auto) 0.2 % (0.0-2.0) 10/01/17 04:57 Neut # (Auto) 8.9 K/uL (1.8-7.0) H 10/01/17 04:57 Lymph # (Auto) 1.1 K/uL (1.0-4.3) 10/01/17 04:57 [place] # (Auto) 1.0 K/uL (0.0-0.8) H 10/01/17 04:57 Eos # (Auto) 0.0 K/uL (0.0-0.7) 10/01/17 04:57 Baso # (Auto) 0.0 K/uL (0.0-0.2) 10/01/17 04:57 Neutrophils % (Manual) 87 % (42-75) H 09/29/17 15:20 Band Neutrophils % 2 % (0-2) 09/29/17 15:20 Lymphocytes % (Manual) 6 % (20-50) L 09/29/17 15:20 Monocytes % (Manual) 5 % (0-10) 09/29/17 15:20 Smudge Cells Present 09/29/17 15:20 Platelet Estimate Normal (NORMAL) 09/29/17 15:20 Hypochromasia (manual) Slight 09/29/17 15:20 PT 14.1 Seconds (9.8-13.1) H 09/30/17 04:20 INR 1.3 (0.9-1.2) H 09/30/17 04:20 APTT 35.2 Seconds (25.6-37.1) 09/30/17 04:20 D-Dimer, Quantitative 992 ng/mlDDU (0-230) H 09/29/17 15:20 pCO2 54 mm/Hg (35-45) H 09/30/17 04:05 pO2 57 mm/Hg (30-55) H 09/30/17 04:22 HCO3 25.4 mmol/L (21-28) 09/30/17 04:05 ABG pH 7.32 (7.35-7.45) L 09/30/17 04:05 ABG Total CO2 29.5 mmol/L (22-28) H 09/30/17 04:05 ABG O2 Saturation 94.6 % (95-98) L 09/30/17 04:05 ABG O2 Content 15.6 ML/dL (15-23) 09/30/17 04:05 ABG Base Excess 0.8 mmol/L (-2.0-3.0) 09/30/17 04:05 ABG Hemoglobin 12.1 g/dL (11.7-17.4) 09/30/17 04:05 ABG Carboxyhemoglobin 1.8 % (0.5-1.5) H 09/30/17 04:05 POC ABG HHb (Measured) 5.2 % (0.0-5.0) H 09/30/17 04:05 ABG Methemoglobin 1.1 % (0.0-3.0) 09/30/17 04:05 ABG O2 Capacity 16.5 mL/dL (16-24) 09/30/17 04:05 [place] Test Yes 09/30/17 04:05 ABG Potassium 3.7 mmol/L (3.6-5.2) 09/29/17 14:29 VBG pH 7.35 (7.32-7.43) 09/30/17 04:22 VBG pCO2 49 mmHg (40-60) 09/30/17 04:22 VBG HCO3 25.3 mmol/L 09/30/17 04:22 VBG Total CO2 28.6 mmol/L (22-28) H 09/30/17 04:22 VBG O2 Sat (Calc) 93.3 % (40-65) H 09/30/17 04:22 VBG Base Excess 0.8 mmol/L (0.0-2.0) 09/30/17 04:22 VBG Potassium 3.8 mmol/L (3.6-5.2) 09/30/17 04:22 A-a O2 Difference 228.0 mm/Hg 09/30/17 04:05 Hgb O2 Saturation 91.9 % (95.0-98.0) L 09/30/17 04:05 Sodium 138.0 mmol/L (132-148) 09/30/17 04:22 Chloride 108.0 mmol/L (98-107) H 09/30/17 04:22 Glucose 85 mg/dL (75-110) 09/30/17 04:22 Lactate 0.9 mmol/L (0.7-2.1) 09/30/17 04:22 Vent Mode Prvc/ac 09/29/17 14:29 Mechanical Rate 16 09/29/17 14:29 FiO2 50.0 % 09/30/17 04:22 Tidal Volume 500 09/29/17 14:29 PEEP 5 09/29/17 14:29 Crit Value Called To janey Summers 09/29/17 14:29 Crit Value Called By 09/29/17 14:29 Crit Value Read Back Y 09/29/17 14:29 Blood Gas Notified Time 1436 09/29/17 14:29 Sodium 140 mmol/l (132-148) 10/04/17 04:20 Potassium 3.7 MMOL/L (3.6-5.0) 10/04/17 04:20 Chloride 100 mmol/L (98-107) 10/04/17 04:20 Carbon Dioxide 25 mmol/L (22-30) 10/04/17 04:20 Anion Gap 19 (10-20) 10/04/17 04:20 BUN 11 mg/dl (9-20) 10/04/17 04:20 Creatinine 0.5 mg/dl (0.8-1.5) L 10/04/17 04:20 Est GFR ( Amer) > 60 10/04/17 04:20 Est GFR (Non-Af Amer) > 60 10/04/17 04:20 POC Glucose (mg/dL) 123 mg/dL (65-110) H 09/29/17 14:19 Random Glucose 93 mg/dL (75-110) 10/04/17 04:20 Calcium 8.3 mg/dL (8.4-10.2) L 10/04/17 04:20 Magnesium 1.7 MG/DL (1.6-2.3) 10/02/17 08:28 Total Bilirubin 0.7 mg/dl (0.2-1.3) 10/01/17 04:57 AST 13 U/L (17-59) L 10/01/17 04:57 ALT 30 U/L (21-72) 10/01/17 04:57 Alkaline Phosphatase 65 U/L (38-126) 10/01/17 04:57 Troponin I 0.0500 ng/mL (0.00-0.120) 09/30/17 00:30 Total Protein 5.5 G/DL (6.3-8.2) L 10/01/17 04:57 Albumin 2.7 g/dL (3.5-5.0) L 10/01/17 04:57 Globulin 2.8 gm/dL (2.2-3.9) 10/01/17 04:57 Albumin/Globulin Ratio 1.0 (1.0-2.1) 10/01/17 04:57 Arterial Blood Potassium 3.7 mmol/L (3.6-5.2) 09/29/17 14:29 Venous Blood Potassium 3.8 mmol/L (3.6-5.2) 09/30/17 04:22 Urine Color Yellow (YELLOW) 09/29/17 15:00 Urine Clarity Slight-cloudy (Clear) 09/29/17 15:00 Urine pH 6.0 (5.0-8.0) 09/29/17 15:00 Ur Specific [place] > 1.030 (1.003-1.030) H 09/29/17 15:00 Urine Protein > 300 mg/dL (NEGATIVE) 09/29/17 15:00 Urine Glucose (UA) Negative mg/dL (Normal) 09/29/17 15:00 Urine Ketones Negative mg/dL (NEGATIVE) 09/29/17 15:00 Urine Blood Moderate (NEGATIVE) 09/29/17 15:00 Urine Nitrate Negative (NEGATIVE) 09/29/17 15:00 Urine Bilirubin Negative (NEGATIVE) 09/29/17 15:00 Urine Urobilinogen 0.2 mg/dL (0.2-1.0) 09/29/17 15:00 Ur Leukocyte Esterase Negative [place]/uL (Negative) 09/29/17 15:00 Urine RBC (Auto) 2 /hpf (0-3) 09/29/17 15:00 Urine Microscopic WBC 0 /hpf (0-5) 09/29/17 15:00 Ur Squamous Epith Cells 3 /hpf (0-5) 09/29/17 15:00 Amorphous Sediment Moderate /ul (<OCC) H 09/29/17 15:00 Urine Opiates Screen Positive (NEGATIVE) H 09/29/17 17:00 Urine Methadone Screen Negative (NEGATIVE) 09/29/17 17:00 Ur Barbiturates Screen Negative (NEGATIVE) 09/29/17 17:00 Ur Phencyclidine Scrn Negative (NEGATIVE) 09/29/17 17:00 Ur Amphetamines Screen Negative (NEGATIVE) 09/29/17 17:00 U Benzodiazepines Scrn Negative (NEGATIVE) 09/29/17 17:00 U Oth Cocaine Metabols Negative (NEGATIVE) 09/29/17 17:00 U Cannabinoids Screen Negative (NEGATIVE) 09/29/17 17:00 Ur L.pneumophila Ag Negative (NEGATIVE) 09/29/17 19:15 Mycoplasma pneumon IgG 1.39 (<=0.90) H 09/29/17 08:02 Mycoplasma pneumon IgM 279 U/mL (<770) 09/29/17 08:02 - Hospital Course Hospital Course: 66 y/o man w/ pmh of COPD with emphysema, HTN, smoker, hyperlipidemia, Seizure disorder, and substance abuse, transferred by EMS from home for respiratory distress and altered mental status. Patient was initially intubated on the field but he self extubated in hospital, continued w/ CPAP in ICU. Patient found to have community acquired pneumonia and started on IV antibiotics. Patient progressively improved requiring BiPap only at night time. Patient was no longer critical and stable to be transferred to [facility]. Patient reports improvement w/ breathing and is saturating 93% on room air. The patient denies headaches, chest pain, SOB, abdominal pain, nausea, vomiting, diarrhea, dysuria , or fever. The patient has been seen, examined, and deemed medically fit for discharge home. The patient is to see PMD Dr. Velasco in 3-5 days. Patient given updated medication list and prescriptions. Discharge Exam - Head Exam Head Exam: ATRAUMATIC, NORMAL INSPECTION, NORMOCEPHALIC - Eye Exam Eye Exam: Normal appearance - ENT Exam ENT Exam: Mucous Membranes Moist - Neck Exam Neck exam: Full Rom - Respiratory Exam Respiratory Exam: Clear to PA & Lateral. absent: Accessory Muscle Use, Decreased Breath Sounds, Rales, Rhonchi, Wheezes, Respiratory Distress - Cardiovascular Exam Cardiovascular Exam: REGULAR RHYTHM. absent: Tachycardia - GI/Abdominal Exam GI & Abdominal Exam: Normal Bowel Sounds, Soft. absent: Distended, Tenderness - Extremities Exam Extremities exam: normal inspection - Neurological Exam Neurological exam: Alert, Normal Gait, Oriented x3 - Skin Skin Exam: Dry, Intact, Normal Color, Warm Discharge Plan - Discharge Medications Prescriptions: Azithromycin [Zithromax] 250 mg PO DAILY #4 tab Fluticasone/Salmeterol 500/50 [Advair Diskus] 1 puff IH Q12 #1 puff Tiotropium [Spiriva] 18 mcg IH DAILY #30 cap - Follow Up Plan Condition: CRITICAL Disposition: HOME/ ROUTINE Referrals: Provider TBD, [Non-Staff] -
== END 2017-10-05 15:00 | disposition home or self-care (01) | DRG 871 ==
LOC: SUPCPDRO 14:08 → H.ER 14:08 → H.ERHOLD 15:46 → H.ICU/CCU 17:38 → H.MEDSURG1 10-04 22:38
PROVIDERS: ADMIT Internal Medicine; ATTEND Internal Medicine
PROC: 3E0234Z Introduction of Serum, Toxoid and Vaccine into Muscle, Percutaneous Approach (ICD-10-PCS; principal; 2017-09-29)
PROC: 05HM33Z Insertion of Infusion Device into Right Internal Jugular Vein, Percutaneous Approach (ICD-10-PCS; 2017-09-29)
PROC: 5A1935Z Respiratory Ventilation, Less than 24 Consecutive Hours (ICD-10-PCS; 2017-09-29)
PROC: 5A09557 Assistance with Respiratory Ventilation, Greater than 96 Consecutive Hours, Continuous Positive Airway Pressure (ICD-10-PCS; 2017-09-30)
DX: A41.9 Sepsis, unspecified organism (principal); J18.9 Pneumonia, unspecified organism; J96.01 Acute respiratory failure with hypoxia; J96.02 Acute respiratory failure with hypercapnia; G93.41 Metabolic encephalopathy; J44.0 Chronic obstructive pulmonary disease with (acute) lower respiratory infection; F11.20 Opioid dependence, uncomplicated; E46 Unspecified protein-calorie malnutrition; I10 Essential (primary) hypertension; Z23 Encounter for immunization; E78.5 Hyperlipidemia, unspecified; E86.0 Dehydration; G89.4 Chronic pain syndrome; E87.6 Hypokalemia; J20.9 Acute bronchitis, unspecified; F17.200 Nicotine dependence, unspecified, uncomplicated; G40.909 Epilepsy, unspecified, not intractable, without status epilepticus; R79.89 Other specified abnormal findings of blood chemistry

== ENCOUNTER 2017-12-22 01:59 | Emergency (ER) | payer MEDICARE ==
[2017-12-22] MEDS ORDERED: Naloxone 0.4 mg/ml Inj (Adult) IVP ONE ×2 (02:30→05:40)
[2017-12-22 02:46] LABS: BASO # 0.1 K/uL (0.0-0.2); BASO % 0.4 % (0.0-2.0); EOS % 0.1 % (0.0-4.0); HEMOGLOBIN 14.3 g/dL (12.0-18.0); LYMPH # 0.6 K/uL (1.0-4.3); LYMPH % 4.1 % (20.0-40.0); MEAN CELL VOLUME 90.6 fl (80.0-94.0); MEAN CORPUSCULAR HEMOGLOBIN 30.1 pg (27.0-31.0); MEAN CORPUSCULAR HGB CONC 33.2 g/dL (33.0-37.0); MEAN PLATELET VOLUME 8.2 fl (7.2-11.7); MONO % 6.4 % (0.0-10.0); PLATELET COUNT 254 K/uL (130-400); RBC 4.75 Mil/uL (4.40-5.90); RED CELL DISTRIBUTION WIDTH 14.7 % (11.5-14.5); WHITE BLOOD COUNT 15.8 K/uL (4.8-10.8)
[2017-12-22 02:56] LABS: BLOOD UREA NITROGEN 11 mg/dl (9-20); CALCIUM 8.6 mg/dL (8.4-10.2); GFR AFRICAN-AMERICAN > 60; GFR NON-AFRICAN AMERICAN > 60
[2017-12-22 02:58] LABS: ACETAMINOPHEN < 10.0 ug/ml (10.0-30.0); SALICYLATE < 1.0 mg/dl
[2017-12-22 03:07] LABS: BARBITURATES, UR POSITIVE (NEGATIVE); BENZODIAZEPINES, UR NEGATIVE (NEGATIVE); OPIATES, UR POSITIVE (NEGATIVE); PHENCYCLIDINE, UR NEGATIVE (NEGATIVE)
--- NOTE | 2017-12-22 03:15 | ED PDOC ---
HPI: Psych/Substance Abuse Time Seen by Provider: 12/22/17 02:05 Chief Complaint (Nursing): Substance Abuse Chief Complaint (Provider): Substance Abuse History Per: Patient, EMS History/Exam Limitations: other (somnolent) Onset/Duration Of Symptoms: Mins Current Symptoms Are (Timing): Still Present Additional Complaint(s): Gonzalez Cardozo is a 67 year old male with a past medical history of hypertension, hyperlipidemia, COPD, seizures, and chronic back pain who was brought to the Ed by EMS for taking too many Percocet pills which he normally takes for back pain. Patient was given Narcan by EMS and started waking up on route to ED but remains somnolent. He denies any recent illnesses. PMD: Juan Francisco Luna Past Medical History Reviewed: Historical Data, Nursing Documentation, Vital Signs Vital Signs: Last Vital Signs Temp 97.5 F L 12/22/17 02:23 Pulse 120 H 12/22/17 02:44 Resp 22 12/22/17 02:44 BP 121/64 12/22/17 02:44 Pulse Ox 95 12/22/17 02:44 - Medical History PMH: Back Problems, COPD, Emphysema, Gall Bladder Disease, HTN, Hyperlipidemia, Seizures Denies: HIV, Chronic Kidney Disease - Surgical History Surgical History: Cholecystectomy - Family History Family History: States: Unknown Family Hx - Social History Current smoker - smoking cessation education provided: Yes Alcohol: Social Drugs: Denies - Home Medications Home Medications: Ambulatory Orders Medication Instructions Recorded Acetaminophen/Butalbital/Caf 1 tab PO Q6 PRN 03/20/17 [Fioricet] Oxycodone HCl [Oxycontin] 120 mg PO QAM 03/20/17 Cyclobenzaprine [Flexeril] 5 mg PO HS PRN 09/29/17 Oxycodone HCl [Oxycontin] 60 mg PO HS 09/29/17 Oxycodone HCl/Acetaminophen 1 tab PO Q6 PRN 09/29/17 [Percocet 7.5-325 mg Tablet] Azithromycin [Zithromax] 250 mg PO DAILY #4 tab 10/05/17 Fluticasone/Salmeterol 500/50 1 puff IH Q12 #1 puff 10/05/17 [Advair Diskus] Tiotropium [Spiriva] 18 mcg IH DAILY #30 cap 10/05/17 - Allergies Allergies/Adverse Reactions: Allergies Allergy/AdvReac Type Severity Reaction Status Date / Time No Known Allergies Allergy Verified 08/28/17 22:20 Review of Systems ROS Statement: Except As Marked, All Systems Reviewed And Found Negative Constitutional: Positive for: Other (took too many percocet) Neurological: Positive for: Other (somnolent) Physical Exam - Reviewed Nursing Documentation Reviewed: Yes Vital Signs Reviewed: Yes - Physical Exam Appears: Positive for: Non-toxic, No Acute Distress Head Exam: Positive for: ATRAUMATIC, NORMAL INSPECTION, NORMOCEPHALIC Skin: Positive for: Normal Color, Warm, DRY Eye Exam: Positive for: EOMI, Normal appearance, PERRL ENT: Positive for: Normal ENT Inspection Neck: Positive for: Normal, Painless ROM Cardiovascular/Chest: Positive for: Regular Rate, Rhythm. Negative for: Murmur Respiratory: Positive for: Normal Breath Sounds. Negative for: Respiratory Distress Gastrointestinal/Abdominal: Positive for: Normal Exam, Soft Back: Positive for: Normal Inspection Extremity: Positive for: Normal ROM Neurologic/Psych: Positive for: Alert (somnolent but arousble). Negative for: Motor/Sensory Deficits - Laboratory Results Result Diagrams: 12/22/17 02:41 12/22/17 02:41 - ECG O2 Sat by Pulse Oximetry: 95 (RA) Medical Decision Making Medical Decision Making: Time: 2:23 Plan:drug overdose --Acetaminophen --Alcohol Serum --BMP --Drug Screen --Salicylate --CBC --Chest Portable --Narcan 0.4 mg IVP Patient given more Narcan in ED as he was somnolent. Urine tox shows opiates and barbiturates. White blood cell count was elevated as xray shows consolidation vs aspiration pna.. Family practice resident was called and they accepted the patient for Dr. Luna. Chest X-Ray: FINDINGS: Lungs: Mild parabronchial cuffing, which can be seen with bronchitis, reactive airway disease or viral pneumonitis versus mild failure. There is bilateral perihilar and infrahilar infiltration right more than left and more focal consolidation in the medial right lower lobe and bilateral basilar patchy infiltration representing edema versus pneumonia. Pleural space: Possible small right more than left pleural effusions. No pneumothorax. Heart: There is stable appearance of the cardiac silhouette. Mediastinum: Unremarkable. Bones/joints: Remote fracture deformity of right mid to lower ribs. Vasculature: Atherosclerotic aorta. IMPRESSION: 1. Mild parabronchial cuffing, which can be seen with bronchitis, reactive airway disease or viral pneumonitis versus mild failure. There is bilateral perihilar and infrahilar infiltration right more than left and more focal consolidation in the medial right lower lobe and bilateral basilar patchy infiltration representing edema versus pneumonia versus aspiration pneumonia if clinically suspected. 2. Possible small right more than left pleural effusions. Correlation with internal medicine evaluation and further workup or followup as recommended by patient's clinical data. Scribe Attestation: Documented by, Maricarmen Costa acting as a scribe for Titi Penn MD. Provider Scribe Attestation: All medical record entries made by the Scribe were at my direction and personally dictated by me. I have reviewed the chart and agree that the record accurately reflects my personal performance of the history, physical exam, medical decision making, and the department course for this patient. I have also personally directed, reviewed, and agree with the discharge instructions and disposition. Disposition - Clinical Impression Clinical Impression: Altered mental state, Opiate abuse, episodic, Pneumonia - Patient ED Disposition Is Patient to be Admitted: Yes - Disposition Disposition Time: 06:00 Condition: STABLE
[2017-12-22 04:43] LABS: BANDS 5 % (0-2); BASOPHIL 1 % (0-2); LYMPHOCYTE 4 % (20-50); MONOCYTE 4 % (0-10); NEUTROPHIL 86 % (42-75); PLATELET ESTIMATE NORMAL (NORMAL); TOTAL CELLS COUNTED 100
[2017-12-22 04:44] LABS: ANISOCYTOSIS SLIGHT
[2017-12-22 04:48] LABS: HYPOCHROMIC SLIGHT
[2017-12-22] MEDS ORDERED: Clindamycin 600mg/50ml NS 600 MG/50 ML BAG IVPB ONE ×2 (05:39→05:46)
[2017-12-22] MEDS ORDERED: Naloxone 0.4 mg/ml Inj (Adult) ONE (05:45)
[2017-12-22] MEDS ORDERED: Albuterol-Ipratrop 3 mg / 0.5 (3 ml) UD INH PRN (06:09)
[2017-12-22] MEDS ORDERED: Potassium Chloride 20 mEq ER Tab PO ONE ×2 (06:11→07:08)
[2017-12-22 06:17] LABS: URINE BILIRUBIN NEGATIVE (NEGATIVE); URINE BLOOD SMALL (NEGATIVE); URINE CLARITY SLIGHTY-CLOUDY (Clear); URINE COLOR YELLOW (YELLOW); URINE GLUCOSE (UA) NEG (Normal); URINE LEUKOCYTE ESTERASE NEG Leu/uL (Negative); URINE PROTEIN NEGATIVE (NEGATIVE); URINE UROBILINOGEN 0.2-1.0 mg/dL (0.2-1.0)
--- NOTE | 2017-12-22 06:51 | CP.PCM.HP ---
<Jamila Mcmanus - Last Filed: 12/22/17 07:07> History of Present Illness - History of Present Illness History of Present Illness: 67 y/o male with PMHx of Substance abuse(Opioids), COPD, HTN, Seizures, chronic back pain presents to ED via EMS after being found unresponsive by his at home. History was obtained from ER provider, ER documentation, and old records in [facility]. No family member at bedside at the time of evaluation. As per ED provider patient was brought via EMS for being unresponsive ( unclear the amount of time), possible after taking too many Percocet tabs which he normally takes for back pain. Patient was given Narcan by EMS and started waking up on route to ED. In the ED patient received two more doses of Narcan (0.4 mg and 0.8 mg). Unclear if patient had any seizure episode, but not reported tongue bite, bladder/bowel incontinence. Poison control called by ER nurse. At the time of evaluation patient was awake, alert, and oriented x3. PMD: Dr. Sheridan Present on Admission - Present on Admission Any Indicators Present on Admission: No History of DVT/PE: No History of Uncontrolled Diabetes: No Urinary Catheter: No Decubitus Ulcer Present: No Review of Systems - Review of Systems All systems: reviewed and no additional remarkable complaints except (as per HPI ) Past Patient History - Infectious Disease Hx of Infectious Diseases: None - Past Medical History & Family History Past Medical History?: Yes - Past Social History Alcohol: Social Drugs: Denies - CARDIAC Hx Hypertension: Yes - PULMONARY Hx Chronic Obstructive Pulmonary Disease (COPD): Yes Hx Emphysema: Yes - NEUROLOGICAL Hx Seizures: Yes - HEENT Hx HEENT Problems: No - RENAL Hx Chronic Kidney Disease: No - ENDOCRINE/METABOLIC Hx Endocrine Disorders: No - HEMATOLOGICAL/ONCOLOGICAL Hx Human Immunodeficiency Virus (HIV): No - INTEGUMENTARY Hx Dermatological Problems: No - MUSCULOSKELETAL/RHEUMATOLOGICAL Hx Musculoskeletal Disorders: Yes - GASTROINTESTINAL Hx Gall Bladder Disease: Yes - GENITOURINARY/GYNECOLOGICAL Hx Genitourinary Disorders: No - PSYCHIATRIC Hx Psychophysiologic Disorder: No Hx Substance Use: No Other/Comment: past history of drinking - SURGICAL HISTORY Hx Cholecystectomy: Yes - ANESTHESIA Hx Anesthesia: Yes Hx Anesthesia Reactions: No Hx Malignant Hyperthermia: No Meds Allergies/Adverse Reactions: Allergies Allergy/AdvReac Type Severity Reaction Status Date / Time No Known Allergies Allergy Verified 08/28/17 22:20 Physical Exam - Constitutional Appears: Non-toxic, No Acute Distress - Head Exam Head Exam: ATRAUMATIC, NORMOCEPHALIC - Eye Exam Eye Exam: EOMI, Normal appearance. absent: Conjunctival injection, Nystagmus - ENT Exam ENT Exam: Mucous Membranes Dry - Respiratory Exam Respiratory Exam: Decreased Breath Sounds (bilateral), NORMAL BREATHING PATTERN. absent: Accessory Muscle Use, Chest Wall Tenderness, Rales, Rhonchi, Wheezes, Respiratory Distress - Cardiovascular Exam Cardiovascular Exam: Tachycardia, REGULAR RHYTHM, +S1, +S2 - GI/Abdominal Exam GI & Abdominal Exam: Normal Bowel Sounds, Soft. absent: Distended, Guarding, Rebound, Rigid, Tenderness - Extremities Exam Extremities exam: Positive for: normal inspection. Negative for: calf tenderness, pedal edema - Back Exam Back exam: NORMAL INSPECTION. absent: CVA tenderness (L), CVA tenderness (R) - Neurological Exam Neurological exam: Alert, CN II-XII Intact (grossly intact), Oriented x3 - Skin Skin Exam: Dry, Intact, Normal Color Results - Vital Signs Recent Vital Signs: Last Vital Signs Temp 97.5 F L 12/22/17 02:23 Pulse 93 H 12/22/17 06:37 Resp 22 12/22/17 06:37 BP 108/63 12/22/17 06:37 Pulse Ox 96 12/22/17 06:37 - Labs Result Diagrams: 12/22/17 02:41 12/22/17 02:41 Labs: Laboratory Results - last 24 hr 12/22/17 12/22/17 12/22/17 02:23 02:41 02:41 WBC RBC Hgb Hct MCV MCH MCHC RDW Plt Count MPV Neut % (Auto) Lymph % (Auto) [place] % (Auto) Eos % (Auto) Baso % (Auto) Neut # (Auto) Lymph # (Auto) [place] # (Auto) Eos # (Auto) Baso # (Auto) Neutrophils % (Manual) Band Neutrophils % Lymphocytes % (Manual) Monocytes % (Manual) Basophils % (Manual) Platelet Estimate Hypochromasia (manual) Anisocytosis (manual) Macrocytosis (manual) Sodium 137 Potassium 3.5 L Chloride 104 Carbon Dioxide 24 Anion Gap 13 BUN 11 Creatinine 0.6 L Est GFR ( Amer) > 60 Est GFR (Non-Af Amer) > 60 POC Glucose (mg/dL) 94 Random Glucose 97 Calcium 8.6 Urine Color Urine Clarity Urine pH Ur Specific [place] Urine Protein Urine Glucose (UA) Urine Ketones Urine Blood Urine Nitrate Urine Bilirubin Urine Urobilinogen Ur Leukocyte Esterase Urine RBC (Auto) Urine Microscopic WBC Salicylates < 1.0 Urine Opiates Screen Urine Methadone Screen Acetaminophen < 10.0 L Ur Barbiturates Screen Ur Phencyclidine Scrn Ur Amphetamines Screen U Benzodiazepines Scrn U Oth Cocaine Metabols U Cannabinoids Screen Alcohol, Quantitative < 10 12/22/17 12/22/17 12/22/17 02:41 02:41 05:40 WBC 15.8 H RBC 4.75 Hgb 14.3 Hct 43.0 MCV 90.6 MCH 30.1 MCHC 33.2 RDW 14.7 H Plt Count 254 MPV 8.2 Neut % (Auto) 89.0 H Lymph % (Auto) 4.1 L [place] % (Auto) 6.4 Eos % (Auto) 0.1 Baso % (Auto) 0.4 Neut # (Auto) 14.0 H Lymph # (Auto) 0.6 L [place] # (Auto) 1.0 H Eos # (Auto) 0.0 Baso # (Auto) 0.1 Neutrophils % (Manual) 86 H Band Neutrophils % 5 H Lymphocytes % (Manual) 4 L Monocytes % (Manual) 4 Basophils % (Manual) 1 Platelet Estimate Normal Hypochromasia (manual) Slight Anisocytosis (manual) Slight Macrocytosis (manual) Slight Sodium Potassium Chloride Carbon Dioxide Anion Gap BUN Creatinine Est GFR ( Amer) Est GFR (Non-Af Amer) POC Glucose (mg/dL) Random Glucose Calcium Urine Color Yellow Urine Clarity Slighty-cloudy Urine pH 5.0 Ur Specific [place] 1.025 Urine Protein Negative Urine Glucose (UA) Neg Urine Ketones Negative Urine Blood Small Urine Nitrate Negative Urine Bilirubin Negative Urine Urobilinogen 0.2-1.0 Ur Leukocyte Esterase Neg Urine RBC (Auto) 4 H Urine Microscopic WBC < 1 Salicylates Urine Opiates Screen Positive H Urine Methadone Screen Negative Acetaminophen Ur Barbiturates Screen Positive H Ur Phencyclidine Scrn Negative Ur Amphetamines Screen Negative U Benzodiazepines Scrn Negative U Oth Cocaine Metabols Negative U Cannabinoids Screen Negative Alcohol, Quantitative Assessment & Plan - Assessment and Plan (Free Text) Assessment: 67 y/o male with PMHx of Substance abuse(Opioids) admitted for AMS possible 2/2 opioid overdose, and suspected aspiration pneumonia. Plan: Altered Mental Status -telemetry unit -possible 2/2 Opioid Overdose -Responsive after Narcan -h/o of Opioid dependence -Urine Toxi positive x opioid -classroom monitor in Tele -on Oxygen via NC -f/u respiratory status -f/u VS -consider Pain management eval -consider Psych eval -Poison control called by ER nurse -s/p Narcan by EMS in the field -s/p Narcan in ER 2 doses, 0.4 mg, and 0.8 mg Bilateral Infiltrates -suspected aspiration Pneumonia -afebrile -leukocytosis in CBC: 15 -swallow eval -f/u Blood culture ordered in Ed -f/u CBC in AM tomorrow -S/P Clindamycin 600 mg IV once in ER -c/w Clindamycin 600 mg IV Q8 -consider ID consult if need Hypokalemia -Mild/3.5 -replace potassium -f/u K+ in BMP Tomorrow AM COPD -resume home meds -duoneb Q4 PRN DVT prophylaxis Lovenox 40 mg SC - Date & Time Date: 12/22/17 Time: 07:00 <Juan Francisco Sheridan - Last Filed: 12/23/17 06:49> Results - Vital Signs Recent Vital Signs: Last Vital Signs Temp 98.4 F 12/22/17 07:45 Pulse 91 H 12/22/17 07:45 Resp 16 12/22/17 07:45 BP 112/64 12/22/17 07:45 Pulse Ox 91 L 12/22/17 07:45 - Labs Result Diagrams: 12/22/17 02:41 12/22/17 02:41 Attending/Attestation - Attestation I have personally seen and examined this patient.: Yes I have fully participated in the care of the patient.: Yes I have reviewed all pertinent clinical information: Yes
[2017-12-22 07:46] VITALS: BP 112/64; PULSE 91; RESP 16; TEMP 98.4
--- NOTE | 2017-12-22 08:37 | RAD ---
HISTORY: drug abuse COMPARISON: 10/05/2017 FINDINGS: LUNGS: Right basilar consolidation. Possible pneumonia. No other consolidation elsewhere. PLEURA: Possible small right pleural effusion. Blunting of costophrenic angle. No evidence of left pleural effusion. No pneumothorax. CARDIOVASCULAR: Normal. OSSEOUS STRUCTURES: No significant abnormalities. VISUALIZED UPPER ABDOMEN: Normal. OTHER FINDINGS: None. IMPRESSION: Suspect right lower lobe pneumonia. Possible small right pleural effusion.
[2017-12-22] MEDS ORDERED: Clindamycin 600mg/50ml NS 600 MG/50 ML BAG IVPB SCH (09:00)
[2017-12-22] MEDS ORDERED: Tiotropium 18 mcg Cap For Inhalation IH SCH (09:00)
[2017-12-22] MEDS ORDERED: Fluticasone-Salmeterol 500-50mcg Diskus IH SCH (09:00)
[2017-12-22] MEDS ORDERED: Enoxaparin 40 mg Syringe SC SCH (21:00)
[2017-12-23] MEDS ORDERED: Clindamycin 600mg/50ml D5W 600 MG/50 ML VIAL IVPB SCH (17:00)
[2017-12-25 22:02] VITALS: O2SAT 95
== END 2017-12-22 07:48 | disposition left against medical advice (07) ==
LOC: H.ER 01:59 → H.ERHOLD 05:38 → UNDOADMIN 05:38 → UNDODISIN 07:48
DX: T40.2X4A Poisoning by other opioids, undetermined, initial encounter (principal); J69.0 Pneumonitis due to inhalation of food and vomit; F11.229 Opioid dependence with intoxication, unspecified; E87.6 Hypokalemia; J43.9 Emphysema, unspecified; I10 Essential (primary) hypertension; E78.5 Hyperlipidemia, unspecified; G89.29 Other chronic pain; R41.82 Altered mental status, unspecified; F17.200 Nicotine dependence, unspecified, uncomplicated; Y92.9 Unspecified place or not applicable
CPT/HCPCS: 71045; 80048; 81003; 82948; 85025; 87040; 87086; 96365; 96375; 96376; 99285; G0480; J2310

== ENCOUNTER 2018-04-25 22:25 | Emergency (ER) | payer MEDICARE ==
--- NOTE | 2018-04-25 22:57 | ED PDOC ---
HPI: Chest Pain Time Seen by Provider: 04/25/18 22:34 Chief Complaint (Nursing): Chest Pain Chief Complaint (Provider): chest pain History Per: Patient, Family History/Exam Limitations: other (possible dementia) Onset/Duration Of Symptoms: Hrs (3) Associated Symptoms: Dyspnea Additional Complaint(s): 67yo w h/o chronic pain and tobacco use reporting sudden onset chest pain substernal 3 hours prior to arrival at rest. Associated with mild shortness of breath. Pt denies leg swelling. Has chronic cough no worse than usual (secondary to smoking). Pt appears to be somewhat lethargic and has inconsistent history. reports that he does take multiple types of medications for pain syndrome, does not believe he has overdosed, but admits that he is forgetful and may have taken an extra dose. She reports that for last few months he is becoming more forgetful and at times even confused, worse when she is not around. Has had increased stress recently because of 's multiple medical issues. Concerned about dementia due to family history. PMD Dr Sheridan Past Medical History Reviewed: Historical Data, Nursing Documentation, Vital Signs Vital Signs: Last Vital Signs Temp 97.8 F 04/25/18 22:29 Pulse 90 04/25/18 22:29 Resp 16 04/25/18 22:29 BP 116/84 04/25/18 22:29 Pulse Ox 97 04/25/18 22:29 - Medical History PMH: Back Problems, COPD, Emphysema, Hyperlipidemia Denies: HTN Other PMH: Above history obtained from previous charts - Surgical History Surgical History: Cholecystectomy - Family History Family History: States: Unknown Family Hx - Social History Current smoker - smoking cessation education provided: Yes Alcohol: None Drugs: Denies - Home Medications Home Medications: Ambulatory Orders Medication Instructions Recorded RX: Acetaminophen/Butalbital/Caf 1 tab PO Q6 PRN 03/20/17 [Fioricet] RX: Oxycodone HCl [Oxycontin] 120 mg PO QAM 03/20/17 RX: Cyclobenzaprine [Flexeril] 5 mg PO HS PRN 09/29/17 RX: Oxycodone HCl [Oxycontin] 60 mg PO HS 09/29/17 RX: Oxycodone HCl/Acetaminophen 1 tab PO Q6 PRN 09/29/17 [Percocet 7.5-325 mg Tablet] Fluticasone/Salmeterol 500/50 1 puff IH Q12 #1 puff 10/05/17 [Advair Diskus] RX: Azithromycin [Zithromax] 250 mg PO DAILY #4 tab 10/05/17 Tiotropium [Spiriva] 18 mcg IH DAILY #30 cap 10/05/17 - Allergies Allergies/Adverse Reactions: Allergies Allergy/AdvReac Type Severity Reaction Status Date / Time No Known Allergies Allergy Verified 04/25/18 22:28 ADA Risk Score for UA/NSTEMI - ADA Risk Score Age > 64: YES 3 or more CAD Risk Factors: YES Known CAD (Stenosis greater than 50%): NO Aspirin use in past 7 days: NO Severe Angina: NO EKG ST changes greater than 0.5mm: NO Positive Cardiac Marker: NO ADA Score: 2 Risk %: 8% Review of Systems ROS Statement: Except As Marked, All Systems Reviewed And Found Negative (and as per HPI) Cardiovascular: Positive for: Chest Pain, Light Headedness Respiratory: Positive for: Cough, Shortness of Breath Musculoskeletal: Positive for: Neck Pain, Back Pain Neurological: Positive for: Confusion Psych: Positive for: Other (forgetfulness and memory issues) Physical Exam - Reviewed Nursing Documentation Reviewed: Yes Vital Signs Reviewed: Yes - Physical Exam Appears: Positive for: No Acute Distress Head Exam: Positive for: ATRAUMATIC, NORMOCEPHALIC Skin: Positive for: Warm, Dry Eye Exam: Positive for: EOMI, PERRL ENT: Positive for: Pharynx Is (clear), Other (dry mucus membranes) Neck: Positive for: Painless ROM, Supple Cardiovascular/Chest: Positive for: Regular Rate, Rhythm. Negative for: Murmur Respiratory: Positive for: Rhonchi (faint). Negative for: Accessory Muscle Use, Respiratory Distress Gastrointestinal/Abdominal: Positive for: Soft. Negative for: Tenderness Back: Positive for: Normal Inspection. Negative for: Decreased ROM Extremity: Positive for: Normal ROM. Negative for: Deformity Lymphatic: Negative for: Adenopathy Neurologic/Psych: Positive for: Oriented (x2), Other (slightly slurred speech, somewhat lethargic, poor concentration). Negative for: Motor/Sensory Deficits - Laboratory Results Result Diagrams: 04/25/18 23:40 04/25/18 23:40 - ECG ECG: Positive for: Interpreted By Me ECG Rhythm: Positive for: Normal QRS, Normal ST Segment, Sinus Rhythm O2 Sat by Pulse Oximetry: 97 Pulse Ox Interpretation: Normal Disposition - Clinical Impression Clinical Impression: Acute chest pain - Disposition Disposition: Transfer of Care Disposition Time: 23:00 Condition: FAIR Patient Signed Over To: Titi Penn Handoff Comments: Pending ER workup reassessment and final ER disposition
--- NOTE | 2018-04-25 23:13 | ED PDOC ---
- Laboratory Results Result Diagrams: 04/25/18 23:40 04/25/18 23:40 - ECG O2 Sat by Pulse Oximetry: 97 (RA) Pulse Ox Interpretation: Normal Medical Decision Making Medical Decision Making: Time: 2299 Patient singed out to me by Dr. Torres pending workup and admission. Time: 113 discussed w pt need to stay in hospital but he refusing. states he wants to go home. pt is stable, awke and alert oriented X3. Patient signing out AMA Scribe Attestation: Documented by Rajani Velazquez, acting as a scribe for Titi Penn MD Provider Scribe Attestation: All medical record entries made by the Scribe were at my direction and personally dictated by me. I have reviewed the chart and agree that the record accurately reflects my personal performance of the history, physical exam, medical decision making, and the department course for this patient. I have also personally directed, reviewed, and agree with the discharge instructions and disposition. Disposition - Clinical Impression Clinical Impression: Acute chest pain, Left against medical advice - POA Present On Arrival: None - Disposition Disposition: AGAINST MEDICAL ADVICE Disposition Time: 01:30 Condition: STABLE Additional Instructions: follow up with your doctor immediately return if you would like to continue workup Instructions: Chest Pain (DC), Leaving Against Medical Advice Forms: [employer] ([place]) Against Medical Advice - AMA Patient Left Against Medical Advice: The patient declines admission to the hospital and wishes to leave the Emergency Department. This action is against my medical advice. This decision was made with informed refusal. The patient was told that admission to the hospital is necessary. Explanation of the reasons why were discussed. The risks of leaving were explained to the patient and include, but are not limited to, worsening of known or currently unknown conditions, permanent disability and from undiagnosed or untreated conditions. The patient has the capacity to make this informed decision and understands my explanation of the current medical problem and risks of leaving. The patient voluntarily accepts these risks and signed an AMA form documenting our conversation. The patient was given the opportunity to ask questions and reconsider. The patient was encouraged to return to the Emergency Department at any time for further care.
[2018-04-26] LABS: BASO # 0.1 K/uL (0.0-0.2); BASO % 1.2 % (0.0-2.0); EOS # 0.1 K/uL (0.0-0.7); HEMOGLOBIN 12.5 g/dL (12.0-18.0); LYMPH # 2.9 K/uL (1.0-4.3); LYMPH % 44.5 % (20.0-40.0); MEAN CELL VOLUME 89.8 fl (80.0-94.0); MEAN CORPUSCULAR HEMOGLOBIN 29.9 pg (27.0-31.0); MEAN CORPUSCULAR HGB CONC 33.3 g/dL (33.0-37.0); MEAN PLATELET VOLUME 8.4 fl (7.2-11.7); MONO # 0.5 K/uL (0.0-0.8); MONO % 7.3 % (0.0-10.0); NEUT # 2.9 K/uL (1.8-7.0); RBC 4.17 Mil/uL (4.40-5.90); RED CELL DISTRIBUTION WIDTH 15.8 % (11.5-14.5); WHITE BLOOD COUNT 6.4 K/uL (4.8-10.8)
[2018-04-26 00:01] LABS: INR 1.1; PROTHROMBIN TIME 12.5 Seconds (9.8-13.1)
[2018-04-26 00:03] LABS: PARTIAL THROMBOPLASTIN TIME 30.2 Seconds (25.6-37.1)
[2018-04-26 00:13] LABS: ALB/GLOB RATIO 1.3 (1.0-2.1); ALBUMIN 3.5 g/dL (3.5-5.0); ALT/SGPT 23 U/L (21-72); AST/SGOT 23 U/L (17-59); BLOOD UREA NITROGEN 19 mg/dl (9-20); CALCIUM 8.7 mg/dL (8.4-10.2); GFR NON-AFRICAN AMERICAN > 60
[2018-04-26 00:23] LABS: B-TYPE NATRIURETIC PEPTIDE 42.7 pg/ml (0-900)
[2018-04-26 02:23] VITALS: BP 120/69; PULSE 88; RESP 19; TEMP 98.2
[2018-04-26 04:37] VITALS: O2SAT 97
--- NOTE | 2018-04-26 08:43 | CARD ---
APPROVED REPORT Date of service: 04/25/2018 EKG Measurement Heart [id number] <Conclusion> Normal sinus rhythm Normal ECG
--- NOTE | 2018-04-26 11:44 | RAD ---
Date of service: 04/25/2018 HISTORY: chest pain COMPARISON: 12/22/2017 FINDINGS: LUNGS: Interval clearance of the prior right basal consolidation. PLEURA: No significant pleural effusion identified,. A small right inferolateral pleural effusion versus chronic right inferolateral pleural thickening (latter favored) is noted. No pneumothorax apparent. CARDIOVASCULAR: No aortic atherosclerotic calcification present. Normal cardiac size. No pulmonary vascular congestion. OSSEOUS STRUCTURES: Similar deformed old healed right posterolateral rib fractures VISUALIZED UPPER ABDOMEN: Asymmetrical elevation of the right hemidiaphragm-exaggerated on the current study possibly due to technique and projection current study more apical lordotic OTHER FINDINGS: None. IMPRESSION: Interval resolution of the prior right basal infiltrate. The right inferolateral pleural thickening chronic favored. Other findings as above.
== END 2018-04-26 01:30 | disposition left against medical advice (07) ==
LOC: H.ER 22:25
DX: R07.89 Other chest pain (principal); F17.200 Nicotine dependence, unspecified, uncomplicated; E78.5 Hyperlipidemia, unspecified; J43.9 Emphysema, unspecified
CPT/HCPCS: 71045; 80053; 83605; 83735; 83880; 84100; 84484; 85025; 85610; 85730; 93005; 99285; G0480